=== PATIENT | female | born 1940 | race Caucasian/White ===

== ENCOUNTER 2016-09-18 10:17 | Inpatient (IN) ==
[2016-09-18] MEDS ORDERED: ZOFRAN IV ONE (10:54)
[2016-09-18] MEDS ORDERED: NS 1,000 ML IV ONE (10:54)
[2016-09-18] MEDS ORDERED: MORPHINE IV ONE (11:07)
[2016-09-18 11:29] LABS: INR 1.04; PROTIME 10.9 Seconds (9.2-11.7)
[2016-09-18 11:32] LABS: EOS# 0.07 X1000 (0.0-0.7); EOS% 7.1 % (0.0-10.0); HEMATOCRIT 34.2 % (37.0-47.0); HEMOGLOBIN 11.2 g/dL (12.0-16.0); LYMPH# 0.43 X1000 (1.2-3.4); LYMPH% 43.9 % (20.5-51.1); MANUAL DIFF NEEDED? YES; MCH 28.1 PG (27-31); MCHC 32.7 g/dL (33-37); MCV 85.7 FL (81-99); MONO# 0.47 X1000 (0.11-0.59); MPV 8.5 FL (7.4-10.4); PLT 299 X1000 (130-400); RBC 3.99 XMIL (4.2-5.4)
[2016-09-18 12:06] LABS: ALBUMIN 3.5 g/dL (3.5-5.0); CALCIUM 8.6 mg/dL (8.8-10.2); MAGNESIUM 1.9 mg/dL (1.5-2.7); POTASSIUM 4.6 mmol/L (3.5-5.1); TOTAL BILIRUBIN 0.36 mg/dL (0.20-1.00); TOTAL PROTEIN 6.7 g/dL (6.3-8.3)
--- NOTE | 2016-09-18 12:14 | Diag Imaging Result Doc PS360 ---
EXAM: CHEST-2 VIEWS INDICATION: cough TECHNIQUE: 2 views COMPARISON: 09/03/2016 FINDINGS: The right chest port is in stable position. The lungs are hyperinflated, stable. There is evidence of prior granulomatous disease, stable. The lungs are grossly clear, otherwise. There is no discrete pleural fluid collection or pneumothorax. The cardiomediastinal silhouette and central vasculature are grossly unremarkable. IMPRESSION: Suggestion of COPD. No definite acute pathology by plain radiograph. Electronically signed by Pedro Luis Lomeli 09/18/2016 12:11 PM
[2016-09-18 12:39] LABS: EOS 10 % (1-10); LYMPHS 60 % (21-51); MONO 30 % (1-9)
[2016-09-18] MEDS ORDERED: MAXIPIME 1 GM/NS 1 GM/50 ML IVPB IV ONE (12:50)
--- NOTE | 2016-09-18 12:53 | PROVIDER DOCUMENTATION ---
This chart was entered by Yi Bowen Scribe, acting as scribe for Gisell Kellogg MD. HPI-General Adult - General Chief Complaint: N/V/D Stated Complaint: n/v/d Time Seen by Provider: 09/18/16 10:49 Source: patient, family Allergies/Adverse Reactions: Patient Allergies Allergy/AdvReac Type Severity Reaction Status Date / Time Penicillins Allergy Unknown Verified 03/07/14 11:02 Sulfa (Sulfonamide Allergy Unknown Verified 03/07/14 11:02 Antibiotics) Home Medications: Home Medication List Medication Instructions Recorded Confirmed Last Taken Type Aspirin EC 81 mg PO DAILY 01/21/14 09/18/16 09/18/16 08:00 History Lisinopril 10 mg PO BID 01/21/14 09/18/16 09/18/16 08:00 History Metoprolol Tartrate 25 mg PO BID 01/21/14 09/18/16 09/18/16 08:00 History Pravastatin Sodium 80 mg PO DAILY 01/21/14 09/18/16 09/17/16 20:00 History Temazepam [Restoril] 30 mg PO HS 01/21/14 09/18/16 09/02/16 20:00 History 30 Ondansetron [Zofran] 8 mg PO TID PRN PRN #30 tablet 01/27/14 09/18/16 09/18/16 08:15 Rx Hydrocodone Bit/Acetaminophen 1 each PO Q6H PRN PRN 03/07/14 09/18/16 09/03/16 06:00 History [Hydrocodon-Acetaminophn 10-325] 1 Dicyclomine HCl 20 mg PO 4XDAY PRN PRN 08/31/16 09/18/16 Unknown History - History of Present Illness -Gen Adult Nature of Presenting Problems: PT IS A 75YOF PRESENTING TO THE ED C/O N/V/D. PT STATES SHE BEGAN HAVING DIARRHEA YESTERDAY AND TODAY SHE HAS STARTED WITH N/V BUT DENIES FEVER AT THIS TIME. PT STATES SHE WAS RECENTLY DIAGNOSED WITH STAGE 3 BREAST CA AND HAD HER 1ST CHEMO TREATMENT 3 DAYS AGO. PT HAS A MILD COUGH WELL BUT DENIES FEVER OR OTHER COMPLAINTS AT THIS TIME. Location of Pain/Injury: reports: none Pain Radiation: reports: no radiation Quality of Pain: reports: dull Severity: reports: mild, moderate Onset/Duration: reports: 24 hours ago Timing: reports: still present Context/Activities at Onset: reports: light activity Modifying Factors: improves with: nothing Associated Symptoms: reports: cough, diarrhea, fatigue, malaise, nausea, vomiting, weakness. denies: anxiety, arm pain, back/neck pain, chest pain, fever/chills, genitourinary problems, shortness of breath, trouble walking Similar Symptoms Previously?: No Recently seen or treated by another doctor?: No Review of Systems - Adult - REVIEW OF SYSTEMS - ADULT Constitutional: reports: no symptoms reported Eyes: reports: no symptoms reported Ears, Nose, Mouth & Throat: reports: no symptoms reported Cardiovascular: reports: no symptoms reported Respiratory: reports: see HPI, cough. denies: excessive sputum production, shortness of breath Gastrointestinal: reports: see HPI, abdominal pain, diarrhea, nausea, poor appetite, vomiting. denies: constipation, difficulty swallowing Genitourinary: reports: no symptoms reported Musculoskeletal: reports: no symptoms reported Integumentary: reports: no symptoms reported Neurological: reports: no symptoms reported Psychiatric: reports: no symptoms reported Endocrine: reports: no symptoms reported Hematologic/Lymphatic: reports: no symptoms reported Allergic/Immunologic: reports: no symptoms reported All Other Systems: Reviewed and Negative Past History - Adult - PAST MEDICAL HISTORY-ADULT Review of Records: reports: Old Records Reviewed, Nursing Assessment Review, Medications Reviewed, Social history reviewed & non-contributory. Major Childhood Illnesses: reports: denies history Cardiovascular: reports: HTN, hyperlipidemia, NC Respiratory: reports: denies history Gastrointestinal: reports: GERD, other (PUD) Obstetrical/Gynecological: reports: denies history Genitourinary: reports: denies history Musculoskeletal: reports: arthritis Neurological: reports: denies history Endocrine/Immune: reports: denies history Other Conditions: reports: denies history - PRIOR SURGERIES/PROCEDURES Surgical/Procedure History: reports: cardiac stent, hysterectomy - PRIOR HOSPITALIZATIONS Prior Hospitalizations: reports: none - IMMUNIZATION STATUS Childhood Immunizations: See Nurse Assessment Flu Vaccine: See Nurse Assessment - FAMILY HISTORY Family History: reviewed, not pertinent - SOCIAL HISTORY Smoking: quit greater than 1 year Substance Use: denies Living Situation: family Physical Exam-General - PHYSICAL EXAM-ADULT Initial Vital Signs Reviewed: Yes - CONSTITUTIONAL General Appearance: alert, mild distress, moderate distress. negative: appears well, no apparent distress - EYES Eyes: PERRL/EOMI, pink conjunctivae - HEAD, EARS, NOSE, MOUTH & THROAT HENMT: normocephalic/atraumatic, moist mucous membranes, normal ENT inspection, TMs normal, pharynx normal - NECK Neck: non-tender, full range of motion, supple, normal inspection - RESPIRATORY Respiratory: chest non-tender, lungs clear, normal breath sounds, no pleuratic chest pain, no respiratory distress, no accessory muscle use - CARDIOVASCULAR Cardiovascular: normal peripheral pulses, regular rate, rhythm, no edema, no gallop, no JVD, no murmur - GASTROINTESTINAL (ABDOMEN) Abdominal Exam: normal bowel sounds, soft, no organomegaly, no pulsatile mass, tenderness (VERY MILD). negative: non tender - LYMPHATIC Lymphatic: no adenopathy - MUSCULOSKELETAL Back Exam: normal inspection, no CVA tenderness, no vertebral tenderness Extremity: non-tender, no pedal edema, no calf tenderness, normal capillary refill, pelvis stable. negative: normal range of motion, normal gait, normal inspection - SKIN Integumentary: normal turgor, warm/dry, pallor. negative: normal color - NEUROLOGIC Neurologic: dependency program director II-XII nml as tested, grossly normal, no motor/sensory deficits - PSYCHIATRIC Psych/Mental Status: normal mood/affect, normal thought content, normal thought process, oriented x 3 Progress - PLAN OF CARE/RESULTS Progress/Plan/Lab Results: Vital Signs - 8 hr 09/18/16 10:22 Temperature 99.1 F Pulse Rate 88 Respiratory Rate 18 Blood Pressure 97/60 O2 Sat by Pulse Oximetry 95 Orders Category Date Time Status Cardiac Monitoring DIRECTED Care 09/18/16 10:55 Active Saline Loc NOW Care 09/18/16 10:55 Active CHEST-2 VIEWS [RAD] Stat Exams 09/18/16 10:55 Ordered AMYLASE [CHEM] Stat Lab 09/18/16 10:52 Received CBC WITH ELECTRONIC DIFF [HEME] Stat Lab 09/18/16 10:52 Results CK PROFILE [SP CHEM] Stat Lab 09/18/16 10:52 Received COMPREHENSIVE METABOLIC PANEL [CHEM] Stat Lab 09/18/16 10:52 Received LIPASE [CHEM] Stat Lab 09/18/16 10:52 Received MAGNESIUM [CHEM] Stat Lab 09/18/16 10:52 Received PRO B-NATRIURETIC PEPTIDE Stat Lab 09/18/16 10:52 Received PROTIME WITH INR [COAG] Stat Lab 09/18/16 10:52 Received PTT [COAG] Stat Lab 09/18/16 10:52 Received TROPONIN T Stat Lab 09/18/16 10:52 Received UA NIMS W/REFLEX CULT [URINALYSIS] Stat Lab 09/18/16 10:54 Uncollected 0.9% Sodium Chloride Inj [Ns] 1,000 ml Med 09/18/16 10:54 Active IV 250 mls/hr Morphine Med 09/18/16 11:07 Discontinued 4 mg IV NOW ONE Ondansetron [Zofran] Med 09/18/16 10:54 Discontinued 4 mg IV NOW ONE EKG [EKG] Stat Ther 09/18/16 10:55 Ordered Laboratory Tests 09/18/16 09/18/16 09/18/16 10:52 10:52 10:52 WBC 0.98 L RBC 3.99 L Hgb 11.2 L Hct 34.2 L MCV 85.7 MCH 28.1 MCHC 32.7 L RDW Std Deviation 13.3 Plt Count 299 MPV 8.5 Immature Gran % (Auto) 0.0 Neut % (Auto) 0.0 L Lymph % (Auto) 43.9 [place] % (Auto) 48.0 H Eos % (Auto) 7.1 Baso % (Auto) 1.0 H Immature Gran # (Auto) 0.00 Neut # (Auto) 0.00 L* Lymph # (Auto) 0.43 L [place] # (Auto) 0.47 Eos # (Auto) 0.07 Baso # (Auto) 0.01 Segmented Neutrophils Not Reportable Lymphocytes 60 H Monocytes 30 H Eosinophils 10 Pathologist Review PT INR PTT (Actin FS) Sodium 136 Potassium 4.6 Chloride 97 L Carbon Dioxide 25 Anion Gap 14 BUN 16 Creatinine 1.0 H Estimated GFR/1.73 m2 54 BUN/Creatinine Ratio 16 Glucose 94 Calculated Osmolality 273 Calcium 8.6 L Magnesium 1.9 Total Bilirubin 0.36 AST 12 ALT 9 L Alkaline Phosphatase 110 H Creatine Kinase 62 Troponin T Szy-A-Qbfqtuuvonv Pept 261 Total Protein 6.7 Albumin 3.5 Globulin 3.2 Albumin/Globulin Ratio 1.1 Amylase 43 Lipase 23 09/18/16 09/18/16 10:52 10:52 WBC RBC Hgb Hct MCV MCH MCHC RDW Std Deviation Plt Count MPV Immature Gran % (Auto) Neut % (Auto) Lymph % (Auto) [place] % (Auto) Eos % (Auto) Baso % (Auto) Immature Gran # (Auto) Neut # (Auto) Lymph # (Auto) [place] # (Auto) Eos # (Auto) Baso # (Auto) Segmented Neutrophils Lymphocytes Monocytes Eosinophils Pathologist Review PT 10.9 INR 1.04 PTT (Actin FS) 32.0 Sodium Potassium Chloride Carbon Dioxide Anion Gap BUN Creatinine Estimated GFR/1.73 m2 BUN/Creatinine Ratio Glucose Calculated Osmolality Calcium Magnesium Total Bilirubin AST ALT Alkaline Phosphatase Creatine Kinase Troponin T < 0.010 Uie-B-Gwodibjfpvf Pept Total Protein Albumin Globulin Albumin/Globulin Ratio Amylase Lipase Result Diagrams: 09/18/16 10:52 09/18/16 10:52 - XRAY 1 XRAY: Bilateral XRAY Study: Chest (SUGGESTION OF COPD, NO DEFINITE ACUTE PATHOLOGY BY PLAIN RADIOGRAGH - DUGGAN) - CONSULTS/PCP/HOSPITALIST Notification #1 *Consult/PCP/Hospitalist*: Jeremias/Dr. Fried Time Discussed: 12:52 Consult Disposition: Admit Departure - Departure Date of Disposition Decision: 09/18/16 Time of Disposition Decision: 12:52 DIAGNOSIS: Neutropenia Qualifiers: Neutropenia type: unspecified Qualified Code(s): D70.9 - Neutropenia, unspecified Nausea & vomiting Qualifiers: Vomiting type: unspecified Vomiting Intractability: non-intractable Qualified Code(s): R11.2 - Nausea with vomiting, unspecified Disposition: ADMITTED INPATIENT 09 Certified Medical Emergency: Emergent Condition: Stable Referrals and Follow-Ups: Nathan Lara MD [Primary Care Provider] - - Critical Care Note This patient required my direct & personal management of CC.: No This chart was documented by the indicated scribe, (Yi Bowen Scribe) and accurately reflects the services I performed and decisions made by me, Gisell Kellogg MD, as attested by the provider's signature.
[2016-09-18] MEDS ORDERED: VANCOMYCIN IV PER PHARMACY MISC SCH (13:15)
[2016-09-18 13:58] LABS: URINE CULTURE NEEDED? NO; URINE SOURCE CATH
[2016-09-18 14:00] LABS: BILIRUBIN URINE SMALL (NEGATIVE); BLOOD URINE NEGATIVE (NEGATIVE); COLOR ORANGE; GLUCOSE URINE NEGATIVE (NEGATIVE); LEUKOCYTES URINE NEGATIVE (NEGATIVE); NITRITE URINE NEGATIVE (NEGATIVE); PH URINE 5.5; PROTEIN URINE 70 mg/dL (NEGATIVE); TURBIDITY URINE HAZY (CLEAR); URINE MICRO REVIEW NEEDED? YES; UROBILINOGEN URINE NORMAL (NORMAL)
[2016-09-18 14:06] LABS: UR EPITHELIAL CELLS <10 /HPF (<10); URINE BACTERIA NEGATIVE /HPF; URINE RBC <10 /HPF (<10); URINE WBC <10 /HPF (<10)
[2016-09-18 14:12] LABS: URINE CASTS GRANULAR PRESENT
[2016-09-18] MEDS ORDERED: VANCOMYCIN 2 GM in NS 500 ML IV ONE (15:00)
--- NOTE | 2016-09-18 15:07 | Diag Imaging Result Doc PS360 ---
EXAM: HEAD W/O CONTRAST INDICATION: AMS COMPARISON: None. FINDINGS: There is patchy low attenuation in the periventricular and subcortical white matter suggesting at least moderate microangiopathy. There are a few chronic lacunar infarcts involving the deep law matter bilaterally. There is no definite acute infarct given the limited sensitivity of CT versus MRI. There is no discrete intracranial mass, mass effect, or intracranial hemorrhage. The surrounding soft tissues and bony structures are essentially unremarkable. IMPRESSION: Chronic appearing changes as described. No definite acute intracranial pathology. Electronically signed by Pedro Luis Lomeli 09/18/2016 3:04 PM
--- NOTE | 2016-09-18 15:29 | HISTORY AND PHYSICAL ---
PRIMARY CARE PHYSICIAN: Nathan Lara MD. ONCOLOGIST: Earnestine Herman MD. CHIEF COMPLAINT: Altered mental status, nausea, vomiting, and diarrhea. HISTORY OF PRESENT ILLNESS: Ms. Terrazas is an unfortunate 75-year-old female with a history of breast cancer with ductal carcinoma, as well, who is followed by Dr. Earnestine Herman. She had been receiving chemotherapy. Her last dose was, I believe, Tuesday or Tuesday of last week. She also has a history of an abdominal aortic aneurysm, hypertension, and CAD. She comes in today, as her family reports that she has been altered over the past few days. She has also been weak with multiple bouts of diarrhea, nausea and vomiting. Ms. Terrazas herself has altered mental status at this time and is unable to give any type of real history, and all pertinent information is from her family at the bedside. She has recently been treated with antibiotics for a UTI and, since that time, her family states that she has really gone downhill with confusion, nausea, vomiting, and ultimately diarrhea. They do not report that she has had any fevers, per se, but she has had some chills. They brought her into the ER today and she was noted to have an ANC count of zero. Her chemistry is largely unremarkable and she has a low-grade fever of 99.1, but, as of now, there is no clear source of infection. We have sent stool studies and blood cultures as well as ordered urine cultures and sputum cultures, but we are going to treat her as neutropenic fever. She is now going to be admitted for further treatment and evaluation. PAST MEDICAL HISTORY: 1. Breast cancer with lymph node involvement on the right, followed by Dr. Earnestine Herman, scheduled to have a mastectomy in the coming weeks. 2. CAD. 3. Hypertension. 4. Hyperlipidemia. 5. History of MO. 6. Abdominal aortic aneurysm. SURGICAL HISTORY: She has had FNA breast biopsy, cataract surgery bilaterally, and hysterectomy. SOCIAL HISTORY: She has a remote history of nicotine dependence. She does not use tobacco, alcohol, or drugs currently. FAMILY HISTORY: Very significant for breast cancer. REVIEW OF SYSTEMS: Unable to obtain. ALLERGIES: Penicillin and sulfa. HOME MEDICATIONS: Aspirin 81 mg daily. Dicyclomine 20 mg 4 times a day. [place] as directed. Lisinopril 10 mg b.i.d. Metoprolol 25 mg b.i.d. Zofran 8 mg t.i.d. as needed. Pravastatin 80 mg daily. Restoril 30 mg p.o. at bedtime. PHYSICAL EXAMINATION: VITAL SIGNS: Blood pressure is 123/61, heart rate 91, respiratory rate 16, O2 saturation 100% on 2L, and temperature 99.1 degrees. GENERAL: This is an elderly-appearing 75-year-old female, lying in the hospital bed in no acute distress. NEUROLOGIC: The patient is awake, slightly lethargic, but she does not answer questions appropriately. She does follow commands with generalized weakness, but no focal deficits noted. HEENT: Head is atraumatic and normocephalic. Her pupils are equal, round, and reactive to light. Oral mucosa is dry. Trachea is midline. NECK: No JVD. CHEST: Occasional sounds scattered rhonchi bilaterally. CARDIOVASCULAR: Regular rate and rhythm. S1 and S2 noted. No murmurs. GASTROINTESTINAL: Soft and nondistended, but there is some slight tenderness to palpation in the right and left upper quadrants. EXTREMITIES: Trace edema, but no clubbing or cyanosis. DIAGNOSTIC DATA: Chest x-ray does not show anything acute on plain film. WBC 0.98, hemoglobin 11.2, hematocrit 34.2, platelet count 299,000. Neutrophil count zero, ANC zero. PT 10.9 and INR 1.04. Sodium 136, potassium 4.6, chloride 97, CO2 of 25, anion gap 14, BUN 16, creatinine 1, glucose 94, calcium 8.6, magnesium 1.9. AST 12, ALT 9, alkaline phosphatase 110. Troponin negative. Lipase is 23, lactate 0.6. UA shows small urobilinogen, trace ketones, and 70 protein. ASSESSMENT AND PLAN: 1. Profound neutropenia with low-grade fever: We are going to treat her as neutropenic fever. Will obtain suarez cultures, start cefepime and vancomycin, and scan her chest, abdomen, and pelvis to search for any infections. Heme-Onc has also been consulted. 2. Toxic metabolic encephalopathy: Source is unclear; however, differential diagnoses are broad. We will check a head CT to rule out for any acute intracranial pathology and lightly hydrate. We will also start antibiotics. We will continue neuro checks and monitor vitals and telemetry closely. 3. Normocytic anemia: We will check iron studies and treat accordingly. 4. Diarrhea: In light of recent antibiotic use, Clostridium difficile is certainly a possibility. Stool studies have been sent and are pending. 5. Known breast cancer: Heme-Onc has been consulted. Defer any management to them. 6. Coronary artery disease: Patient denies any chest pain, but will monitor telemetry and trend enzymes. 7. Deep vein thrombosis prophylaxis will be provided with SCDs/TEDs. Further recommendations to follow. Dictated by TESSA Roberts for Ashlee Danielson MD cc: TESSA Roberts MD Stephen A. Branning, MD
--- NOTE | 2016-09-18 15:36 | Diag Imaging Result Doc PS360 ---
EXAM: THORAX/ABDOMEN/PELVIS INDICATION: Severe Neutropenia/Diarrhea/Abd Pain COMPARISON: CT abdomen without contrast dated 05/07/2016. No prior chest CT is available for comparison. FINDINGS: CHEST: There is pulmonary emphysema. There are a few calcified granulomata in the left lower lobe. There are a few other tiny noncalcified nodules bilaterally. For reference, the largest measured nodule is only 5.2 mm. It is located at the superior aspect of the right lower lobe abutting the pleura medially on image 39 of series 4. These certainly may represent noncalcified granulomata. Follow-up is recommended based on Fleischner Society criteria. There is trace scarring versus atelectasis in the lingula. There are no pleural fluid collections and there is no pneumothorax. There are nonspecific borderline to mildly prominent mediastinal lymph nodes. The largest is in the aorticopulmonary window measuring approximately 2.3 x 1.2 cm axially. There is patchy aortic and coronary artery calcification. There is nonspecific right axillary lymphadenopathy. For reference, there is a lymph node on image 35 of series 2 on the right measuring up to 1.9 x 1.6 cm axially. The bony structures of the thorax are grossly intact. ABDOMEN/PELVIS: There are a few small renal hypodensities bilaterally most compatible with subcentimeter cysts. However, they're too small to accurately characterize. The kidneys are grossly unremarkable, otherwise. There is an infrarenal abdominal aortic aneurysm that is approximately stable measuring up to 4.0 x 3.8 cm axially. It exhibits mural thrombus and calcification. There is sigmoid colonic diverticulosis and there is a segment of the mid sigmoid colon exhibiting surrounding inflammatory changes and wall thickening. This is consistent with acute diverticulitis. There is no evidence of abscess or free abdominal gas to indicate perforation. There has been a previous hysterectomy. The remainder of the solid viscera of the abdomen and pelvis and the remainder of the GI tract are essentially unremarkable. There are degenerative changes involving the lower lumbar spine. The bony structures of the abdomen and pelvis are grossly intact, otherwise. IMPRESSION: 1.Pulmonary emphysema. 2.Several tiny subcentimeter noncalcified nodules in both lungs that may represent noncalcified granulomata. Consider follow-up based on Fleischner Society criteria. 3.Nonspecific right axillary lymphadenopathy. 4.Shotty borderline to mildly prominent mediastinal lymph nodes. 5.Acute sigmoid colonic diverticulitis. No evidence of perforation. 6.Stable abdominal aortic aneurysm. 7.Other incidental/nonacute findings detailed above. Electronically signed by Pedro Luis Lomeli 09/18/2016 3:34 PM
[2016-09-18] MEDS ORDERED: TYLENOL PO PRN (16:54)
[2016-09-18] MEDS ORDERED: CALMOSEPTINE OINTMENT TOP PRN (17:46)
[2016-09-18] MEDS: NS 1,000 ML IV SCH (18:29)
[2016-09-18] MEDS: FLAGYL 500 MG/NS 500 MG/100 ML IVPB IV SCH ×2 (18:29→23:50)
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
[2016-09-18] MEDS: NORCO-10 PO SCH (21:09)
[2016-09-18] MEDS: RESTORIL PO SCH (21:09)
[2016-09-19] MEDS: MAXIPIME 1 GM/NS 1 GM/50 ML IVPB IV SCH ×2 (01:53→14:01)
[2016-09-19] MEDS: NORCO-10 PO SCH ×3 (01:53→16:26)
[2016-09-19] MEDS: FLAGYL 500 MG/NS 500 MG/100 ML IVPB IV SCH ×2 (05:23→11:40)
[2016-09-19] MEDS: NS 1,000 ML IV SCH ×2 (05:23→16:56)
[2016-09-19] MEDS: SODIUM CHLORIDE 0.9% INJ SCH (06:16)
[2016-09-19] MEDS: PROTONIX IV SCH (06:16)
[2016-09-19 06:59] LABS: EOS# 0.05 X1000 (0.0-0.7); EOS% 4.9 % (0.0-10.0); HEMATOCRIT 30.3 % (37.0-47.0); HEMOGLOBIN 9.8 g/dL (12.0-16.0); LYMPH# 0.43 X1000 (1.2-3.4); LYMPH% 41.7 % (20.5-51.1); MANUAL DIFF NEEDED? YES; MCH 27.7 PG (27-31); MCHC 32.3 g/dL (33-37); MCV 85.6 FL (81-99); MONO# 0.54 X1000 (0.11-0.59); MONO% 52.4 % (1.7-9.3); MPV 8.5 FL (7.4-10.4); PLT 280 X1000 (130-400); RBC 3.54 XMIL (4.2-5.4)
[2016-09-19 07:14] LABS: AGAP 12; BUN 12 mg/dL (8-22); CHLORIDE 101 mmol/L (98-107); COSMO 267; HDL 18 mg/dL (45-65); IRON SATURATION 7 %; LDL 81 mg/dL; SODIUM 134 mmol/L (136-145); TCO2 21 mmol/L (25-35); TIBC 189 ug/dL; TOTAL IRON 13 ug/dL (49-151); TRIGLYCERIDES 119 mg/dL (35-135); UNBOUND IRON 176 ug/dL (112-346); VLDL 24 mg/dL
[2016-09-19 07:28] LABS: EOS 4 % (1-10); LYMPHS 46 % (21-51); MONO 50 % (1-9)
[2016-09-19] MEDS ORDERED: IMODIUM PO ONE (13:50)
[2016-09-19] MEDS: DILAUDID IV PRN ×2 (13:58→20:49)
[2016-09-19] MEDS ORDERED: VANCOMYCIN 1.6 GM in NS 250 ML IV SCH (15:00)
[2016-09-19] MEDS ORDERED: MERREM 1 GM in NS 50 ML IV SCH (15:30)
--- NOTE | 2016-09-19 16:53 | PROGRESS NOTE ---
DATE: 09/19/2016 SUBJECTIVE: The patient continues to have several bouts of loose stool and she complains of generalized pain. OBJECTIVE: Vital Signs: Temperature 99 degrees, blood pressure 139/58, heart rate 115, respirations 20, O2 saturation is 94% on room air. General: This is an elderly female, lying in bed, in no acute distress. Head: Normocephalic, atraumatic. Heart: S1, S2 normal. Tachycardic. Lungs: Clear to auscultation bilaterally. Abdomen: Positive bowel sounds. Soft, nontender, nondistended. Extremities: No edema. No cyanosis. Neurologic: The patient is awake and alert. LABS: White blood cell count 1, hemoglobin 9.8, hematocrit 30, platelets 280,000. Sodium 134, potassium 4, chloride 101, CO2 21, BUN 12, creatinine 0.7, glucose 82, calcium 8. Iron 13. ASSESSMENT AND PLAN: 1. Neutropenic fever. Continue on broad-spectrum antibiotics. Will follow up the culture results. 2. Acute diverticulitis. Continue on IV antibiotic therapy. 3. Breast cancer. Oncology has been consulted. 4. Anemia of chronic disease. We will continue to monitor the patient's hemoglobin and hematocrit closely. 5. Deep vein thrombosis prophylaxis. Continue with SCDs. cc: Ashlee Danielson MD
[2016-09-19] MEDS: BENADRYL PO PRN (16:58)
[2016-09-19] MEDS: CYANOCOBALAMIN IM SCH (16:59)
[2016-09-19] MEDS: MERREM 1 GM in NS 50 ML IV SCH ×2 (16:59→23:08)
[2016-09-19] MEDS: HYDROCORTISONE 1% CREAM TOP PRN (17:01)
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
--- NOTE | 2016-09-19 20:44 | PROGRESS NOTE ---
DATE: 09/19/2016 SUBJECTIVE: The patient states that she continues to feel poorly. She is having multiple bowel movements per day despite Imodium. Her stool studies are negative for C. difficile antigen, but the toxin was not performed. She really describes 6-10 bowel movements that are watery and large volume. She was evaluated by Dr. Duc Otoole who changed her antibiotics from cefepime, vancomycin and Flagyl to meropenem. This occurred 1 hour prior to our evaluation today. On exam, she is comfortable. Her blood pressure is 133/74, pulse of 109, respiration 20 , temperature of 98.6 degrees. Our exam was limited as the patient had the urge to defecate immediately before our exam. She is able to press on her and states that she has mild tenderness, but no severe pain. OBJECTIVE DATA: Reveals a hemoglobin of 9.8 with hematocrit of 30.3, and a white count of 1.03. She has 280,000 platelets. Sodium is 134, potassium 4, chloride 101, CO2 21, BUN 12, creatinine 0.6 with a glucose of 82. Her calcium is 8 with an iron of 13, ammonia of 19, vitamin B12 188 and folic acid of 11.5. IMPRESSION: 1. Neutropenia. 2. Sigmoid diverticulitis. 3. Metabolic encephalopathy. 4. Vitamin B12 deficiency. 5. Breast cancer. RECOMMENDATION: 1. Continue meropenem for treatment of her sigmoid diverticulitis. Because her antibiotics were adjusted 1 hour prior to our evaluation, I will make no new recommendations today. 2. Continue Protonix. 3. Consider Imodium as needed. Please monitor its use carefully as she is at risk for toxic megacolon. I would only use sparingly given her copious amounts of diarrhea. 4. We may consider cholestyramine if the diarrhea persists once we have carefully ruled out Clostridium difficile colitis. 5. She will need a complete colonoscopy once the acute episode has resolved. 6. Additional recommendations to follow based on her clinical course. cc: MD Earnestine Monterroso MD Leroy F. Harris, MD Stephen A. Branning, MD MTDD
[2016-09-19] MEDS: RESTORIL PO SCH (20:49)
[2016-09-19] MEDS: CULTURELLE PO SCH (23:08)
[2016-09-20] MEDS: NORCO-10 PO SCH ×5 (01:31→23:29)
[2016-09-20] MEDS: BENADRYL PO PRN ×2 (02:34→14:43)
[2016-09-20] MEDS: DILAUDID IV PRN ×5 (02:34→23:30)
[2016-09-20] MEDS ORDERED: CARDIZEM ONE (06:36)
[2016-09-20] MEDS ORDERED: CARDIZEM IV ONE ×2 (07:00→07:45)
--- NOTE | 2016-09-20 07:33 | EKG Report ---
Test Performed on : 09/20/2016 04:37:26 AM Test Reason : Re-Ordered Blood Pressure : / mmHG Vent. Rate : 152 BPM Atrial Rate : 136 BPM P-R Int : 000 ms QRS Dur : 096 ms QT Int : 300 ms P-R-T Axes : 000 032 063 degrees QTc Int : 477 ms Atrial fibrillation. with rapid ventricular response. Nonspecific ST and T wave abnormality Abnormal ECG When compared with ECG of 20-SEP-2016 04:36, (Unconfirmed) No significant change was found Confirmed by Allen SPICER, Sal Roberson ([id number]) on 09/21/2016 6:20:27 PM
[2016-09-20] MEDS: PROTONIX IV SCH (07:43)
[2016-09-20 08:04] LABS: BASO% 1.8 % (0.0-0.8); EOS# 0.07 X1000 (0.0-0.7); EOS% 3.1 % (0.0-10.0); HEMATOCRIT 31.3 % (37.0-47.0); HEMOGLOBIN 10.2 g/dL (12.0-16.0); IMM GRAN# 0.03 X1000 (0.0-0.04); IMM GRAN% 1.3 % (0.0-0.5); LYMPH# 0.62 X1000 (1.2-3.4); LYMPH% 27.8 % (20.5-51.1); MANUAL DIFF NEEDED? YES; MCH 27.7 PG (27-31); MCHC 32.6 g/dL (33-37); MCV 85.1 FL (81-99); MONO# 0.91 X1000 (0.11-0.59); MONO% 40.8 % (1.7-9.3); MPV 8.4 FL (7.4-10.4); NEUT% 25.2 % (42.2-75.2); PLT 346 X1000 (130-400); RBC 3.68 XMIL (4.2-5.4)
[2016-09-20 08:18] LABS: AGAP 13; BUN 6 mg/dL (8-22); CHLORIDE 101 mmol/L (98-107); COSMO 271; POTASSIUM 3.3 mmol/L (3.5-5.1); SODIUM 137 mmol/L (136-145); TCO2 23 mmol/L (25-35)
[2016-09-20] MEDS: NS 1,000 ML IV SCH ×3 (08:25→23:20)
[2016-09-20] MEDS: CARDIZEM 100 MG/NS 100 MG/100 ML IVPB IV SCH (08:26)
[2016-09-20] MEDS: CYANOCOBALAMIN IM SCH (08:29)
[2016-09-20] MEDS: CULTURELLE PO SCH ×2 (08:29→20:10)
[2016-09-20 08:50] LABS: BANDS 8 % (0-1); EOS 2 % (1-10); LYMPHS 48 % (21-51); MONO 22 % (1-9)
[2016-09-20 08:51] LABS: HYPOCHROM 2+
[2016-09-20] MEDS: MERREM 1 GM in NS 50 ML IV SCH ×3 (09:04→23:59)
[2016-09-20] MEDS ORDERED: POTASSIUM CHLORIDE 60 MEQ in NS 500 ML IV ONE (09:30)
--- NOTE | 2016-09-20 09:56 | PROGRESS NOTE ---
DATE: 09/20/2016 PRESENT ILLNESS: The patient has a resolving neutropenic fever. She also, on CAT scan, was found to have evidence of sigmoid diverticulitis. MEDICATIONS: The patient is on meropenem in a dose of 1 g IV every 8 hours. PHYSICAL EXAMINATION: Vital Signs: Temperature is 98.4 degrees, pulse 137, respirations 28, blood pressure 132/65. General: This is a somewhat ill-appearing, elderly female. She is in no acute distress. Lungs: Clear to auscultation. Cardiovascular: Regular heart rate. Abdomen: Soft and nontender. Neurologic: Patient is alert. She can move her extremities. There is no tremor. LAB AND X-RAY: The patient's CBC today shows a white count of 2230, hemoglobin 10.2, and platelet count of 346,000. Patient's absolute neutrophil count is 560. Stool for Clostridium difficile toxin is negative. Blood cultures are pending. ASSESSMENT AND PLAN: Patient has resolving neutropenic fever. She does have sigmoid diverticulitis as seen on a CAT scan. My plan would be to continue meropenem. The patient's comorbidities include breast cancer for which the patient received chemotherapy and caused her to be neutropenic. The patient has metastatic breast cancer which caused her to become neutropenic. The plan is to continue meropenem because the patient also, on CAT scan, has sigmoid diverticulitis. The patient's comorbidity is that she is elderly. She also has metastatic breast cancer for which she needs chemotherapy. cc: Duc Otoole MD
[2016-09-20] MEDS: LOPRESSOR PO SCH ×2 (11:50→20:10)
[2016-09-20] MEDS: ASPIRIN PO SCH (11:51)
--- NOTE | 2016-09-20 12:17 | CONSULTATION ---
DATE OF CONSULTATION: 09/20/2016 HISTORY OF PRESENT ILLNESS: Cardiology was consulted for new onset severe atrial fibrillation. The patient was admitted on 09/18 with nausea, vomiting, diarrhea with multiple bouts of nausea, vomiting, and diarrhea. The patient also had some altered mental status and recent UTI and has been on antibiotics and she has been going downhill. The patient was brought in and admitted. She has a neutropenia and acute sigmoid colonic diverticulitis. GI has been consulted. From a cardiac standpoint, she does not complain of chest pain. She has palpitations and has been started on a Cardizem drip. There is no recent episode of syncope recently, or in the past. She has known coronary disease and is followed by Dr. Jovel in [place]. REVIEW OF SYSTEMS: GI: As above. Genitourinary: As above. Cardiovascular: As above. Respiratory: There is no cough or hemoptysis. PAST MEDICAL HISTORY: 1. Breast cancer with lymph node involvement followed by Dr. Herman, has mastectomy planned, also has neutropenia, diarrhea and abdominal discomfort. 2. Hypertension. 3. Hyperlipidemia. 4. Abdominal aorta aneurysm. 5. History of myocardial infarction. 6. Left heart catheterization 11/14/2012. Ejection fraction at that time 45-50%. LAD 30-50%. Diagnosed occluded OM1 ostial 60-70%. OM2 fills via collaterals. RCA stent patent. Medical management recommended at that time. Myocardial infarction 04/04/2012 and had a RCA a drug- eluting stent. 7. History of diastolic heart failure. 8. Mitral regurgitation. 9. Tobacco abuse. HOME MEDICATIONS: Included aspirin 81 mg still, lisinopril 10, metoprolol 25 b.i.d., gabapentin, pravastatin 80, [place]. PHYSICAL EXAMINATION: Vital Signs: Blood pressure 132/65. Cardiovascular: Jugular venous pressure was normal. First and second heart sounds heard. There is no S3 gallop. Respiratory: Normal air entry. There is no crepitations or rhonchi. Abdomen: Mild tenderness. Central Nervous System: Alert, was moving all 4 extremities. Extremities: Revealed mild pedal edema. LABORATORY EXAMINATION: Sodium 137, potassium 3.3, BUN 6, creatinine 0.7. EKG revealed atrial fibrillation with rapid ventricular. WBC when she was admitted 0.98 with a hemoglobin 11.2, hematocrit 34, platelet count of 299,000. Neutrophils were 0. Head CT was unremarkable. Chest/abdominal CT revealed acute sigmoid colonic diverticulitis with stable infrarenal abdominal aorta aneurysm measuring 3.8 cm with mural thrombus and calcification. ASSESSMENT AND PLAN: 1. For atrial fibrillation she is on a Cardizem drip. We will switch her out to p.o. Cardizem 60 q.8h in addition to increase her metoprolol to 50 mg twice daily. 2. She is on aspirin. As far as anticoagulation therapy is concerned, would recommend the Eliquis 5 mg twice daily for stroke prophylaxis given elevated [id number] score; however, she has acute sigmoid diverticulitis and is being treated with antibiotics. As this in the acute phase just in the event that further intervention from a GI standpoint may be required, I will deferred starting anticoagulation therapy to when she is a little more stable and at the time of discharge. We will get an echocardiogram to assess cardiac and valvular function. Thank you for the consult. We will follow hospital course. cc: Rodolfo Dahl MD
--- NOTE | 2016-09-20 13:50 | PROGRESS NOTE ---
DATE: 09/20/2016 SUBJECTIVE: Patient states she is feeling better. She is asking for something to eat. No reported nausea or vomiting so far today. Patient reports hunger pain but really denies any severe abdominal pain. She is being treated for diverticulitis. She is also being evaluated for new onset atrial fibrillation. She has been seen by Cardiology. OBJECTIVE: Lungs: Sounds essentially clear. Cardiovascular: New onset of atrial fibrillation. Abdomen: Soft, only mild tenderness. Vital Signs: Temperature 98.4 degrees, pulse 137, respirations 28 blood pressure 132/65. DIAGNOSTIC RESULTS: Laboratory. Hematology. White count 2.23, hemoglobin 10.2, hematocrit 31.3, MCV 85.1, platelet 346,000. Chemistry. Sodium 137, potassium 3.3, chloride 101, CO2 of 23, BUN 6, creatinine 0.7, glucose 87. ASSESSMENT AND PLAN: 1. Diverticulitis. 2. New onset atrial fibrillation following with Cardiology. 3. Neutropenia with history of breast cancer followed by Dr. Herman. PLAN: Continue supportive care. Continue symptomatic treatment. Continue antibiotics. The patient is asking for regular food. Will advance if okay with Dr. Gibson. Dr Gibson to return tomorrow. Dictated by TESSA Steen for Isrrael Lei MD cc: TESSA Hairston MD [facility]
[2016-09-20] MEDS: CARDIZEM PO SCH ×2 (13:52→17:16)
[2016-09-20] MEDS: QUESTRAN LIGHT PO SCH ×2 (13:56→20:09)
[2016-09-20] MEDS: GRANIX SUBQ SCH (13:56)
--- NOTE | 2016-09-20 14:01 | PROGRESS NOTE ---
DATE: 09/20/2016 SUBJECTIVE: The patient continues to have diarrhea. She went into atrial fibrillation with RVR this morning and was transferred to CICU. OBJECTIVE: Vital Signs: Temperature 98.4 degrees, blood pressure 132/65, heart rate 137, respirations 28, O2 saturations 95% on room air. General: This is an elderly female lying in bed in no acute distress. Head: Normocephalic, atraumatic. Heart: S1, S2. Normal. Irregularly irregular rhythm. Lungs: Clear to auscultation bilaterally. No crackles. No rales. Abdomen: Positive bowel sounds. Soft, nontender, nondistended. Extremities: No edema. No cyanosis. Neurologic: The patient is awake and alert. LABS: White blood cell count 2.2, hemoglobin 10, hematocrit 31, platelets 346,000. Sodium 137, potassium 3.3, chloride 101, CO2 23, BUN 6, creatinine 0.7, glucose 87. ASSESSMENT AND PLAN: 1. Atrial fibrillation. Cardiology has been consulted and they started the patient on Lopressor. Will continue to monitor the patient on telemetry in CICU. 2. Neutropenic fever. The patient's ANC is 0.56. Will continue on neutropenic precautions plus antibiotic therapy. 3. Acute diverticulitis. Continue on Merrem as directed by Dr. Otoole. 4. Diarrhea. The patient's stool was noted to be negative for Clostridium difficile. Will start on Questran. 5. Breast cancer. Management as per Dr. Herman. 6. Hypokalemia. Will replace the patient's potassium. 7. Vitamin B12 deficiency. The patient is on vitamin B12 replacement. 8. Deep venous thrombosis prophylaxis. Continue with SCDs. cc: Ashlee Danielson MD
[2016-09-20] MEDS: RESTORIL PO SCH (20:09)
[2016-09-21] MEDS: CARDIZEM PO SCH ×2 (00:39→08:26)
[2016-09-21] MEDS: DUONEB (A & A) INH PRN ×3 (01:32→18:07)
[2016-09-21] MEDS: CARDIZEM 100 MG/NS 100 MG/100 ML IVPB IV SCH ×2 (02:33→23:23)
[2016-09-21] MEDS: NORCO-10 PO SCH ×4 (03:40→20:16)
[2016-09-21] MEDS: DILAUDID IV PRN ×4 (04:23→18:31)
[2016-09-21 06:06] LABS: AGAP 13; BUN 4 mg/dL (8-22); CALCIUM 8.1 mg/dL (8.8-10.2); CHLORIDE 103 mmol/L (98-107); COSMO 276; POTASSIUM 3.8 mmol/L (3.5-5.1); SODIUM 140 mmol/L (136-145); TCO2 24 mmol/L (25-35)
[2016-09-21] MEDS: PROTONIX IV SCH (06:07)
--- NOTE | 2016-09-21 06:49 | PROGRESS NOTE ---
DATE: 09/21/2016 PRESENT ILLNESS: The patient has had resolution of her neutropenic fever. She was found on CAT scan to have a sigmoid diverticulitis. MEDICATIONS: The patient is receiving meropenem in a dose of 1 g IV every 8 hours for the past 2 days. PHYSICAL EXAMINATION: Vital Signs: Temperature is 97.8 degrees, pulse 99, respirations 18, blood pressure 122/77. General: This is an ill-appearing, elderly female. She is in no acute distress. Lungs: Clear to auscultation. Cardiovascular: Irregular heart rate. Chest: The patient has a right-sided Port-A-Cath in place. The site is not swollen, purulent, or erythematous. LAB AND X-RAY: There is no new x-ray. The creatinine is 0.7. GFR is greater than 60. I have just ordered a CBC, the results of which are pending. I have requested that the nurse call me with the results also. ASSESSMENT AND PLAN: The patient has resolved neutropenic fever. She does have sigmoid diverticulitis. I plan to continue with meropenem for a while. COMORBIDITIES: Include the following: Elderly, metastatic breast cancer, and chemotherapy. cc: Duc Otoole MD
[2016-09-21 06:52] LABS: BASO% 0.8 % (0.0-0.8); EOS# 0.08 X1000 (0.0-0.7); EOS% 0.6 % (0.0-10.0); HEMATOCRIT 33.1 % (37.0-47.0); HEMOGLOBIN 10.6 g/dL (12.0-16.0); IMM GRAN# 0.52 X1000 (0.0-0.04); LYMPH# 1.35 X1000 (1.2-3.4); LYMPH% 10.3 % (20.5-51.1); MANUAL DIFF NEEDED? NO; MCH 27.4 PG (27-31); MCV 85.5 FL (81-99); MONO# 1.98 X1000 (0.11-0.59); MONO% 15.1 % (1.7-9.3); MPV 8.7 FL (7.4-10.4); NEUT% 69.2 % (42.2-75.2); PLT 366 X1000 (130-400); RBC 3.87 XMIL (4.2-5.4)
--- NOTE | 2016-09-21 06:53 | EKG Report ---
Test Performed on : 09/21/2016 06:31:32 AM Test Reason : afib Blood Pressure : / mmHG Vent. Rate : 116 BPM Atrial Rate : 070 BPM P-R Int : 000 ms QRS Dur : 094 ms QT Int : 342 ms P-R-T Axes : 000 018 044 degrees QTc Int : 475 ms Atrial fibrillation. with rapid ventricular response. Nonspecific ST abnormality Abnormal ECG When compared with ECG of 20-SEP-2016 04:37, (Unconfirmed) No significant change was found Confirmed by Allen SPICER, Sal Roberson ([id number]) on 09/21/2016 6:23:03 PM
--- NOTE | 2016-09-21 08:05 | Diag Imaging Result Doc PS360 ---
EXAM: KUB ABDOMEN HISTORY: bowel obstruction TECHNIQUE: Two views COMPARISON: None. FINDINGS: No bowel obstruction. No organomegaly. No foreign body. IMPRESSION: The bowel loops are not dilated. Electronically signed by Gamal Chaudhary 09/21/2016 8:03 AM
[2016-09-21] MEDS: MERREM 1 GM in NS 50 ML IV SCH ×3 (08:24→23:28)
[2016-09-21] MEDS: ASPIRIN PO SCH (08:26)
[2016-09-21] MEDS: CULTURELLE PO SCH ×2 (08:26→20:17)
[2016-09-21] MEDS: CYANOCOBALAMIN IM SCH (08:27)
[2016-09-21] MEDS: QUESTRAN LIGHT PO SCH ×2 (08:27→20:16)
[2016-09-21] MEDS: LOPRESSOR PO SCH ×2 (08:27→20:17)
[2016-09-21] MEDS: GRANIX SUBQ SCH (09:54)
--- NOTE | 2016-09-21 10:30 | ECHO REPORT ---
ORDER DATE: 09/20/2016 MEASUREMENTS: Left ventricular end-diastolic diameter 5, end-systolic diameter 3.8, septal thickness 1.1, posterior wall thickness 1.1, left atrium 3.7, aortic root 3.4. SUMMARY: 1. Fair quality study. 2. Trileaflet aortic valve is sclerotic but opens adequately on 2-dimensional images. Peak gradient across the valve is 15 mmHg. There is mild aortic regurgitation. Mitral, tricuspid, and pulmonic valves are without structural abnormality with mild mitral regurgitation, very mild tricuspid regurgitation, and trace pulmonic insufficiency. Estimated systolic PA pressure by Doppler is 65 mmHg. The aortic root is normal in size. 3. Normal left ventricular chamber size with borderline concentric left hypertrophy is demonstrated. Estimated left ejection fraction is 50-55%. No regional wall motion abnormalities are evident. Left atrium is upper normal in size. Right atrium and right ventricle are normal in size with normal right ventricular systolic function. 4. No pericardial effusion. 5. Appearance of inferior vena cava suggests normal central venous pressure. CONCLUSIONS: 1. Aortic valve sclerosis without stenosis, with mild aortic regurgitation. 2. Mild mitral regurgitation. 3. Very mild tricuspid regurgitation with moderate to severe pulmonary hypertension by Doppler. 4. Borderline concentric left ventricular hypertrophy with estimated left ejection fraction of 50- 55%. cc: MD Vanessa Rajan PA
[2016-09-21] MEDS: NS 1,000 ML IV SCH ×2 (12:44→23:28)
[2016-09-21] MEDS: CARDIZEM CD PO SCH (16:14)
--- NOTE | 2016-09-21 16:17 | PROGRESS NOTE ---
DATE: 09/21/2016 SUBJECTIVE: This patient states that she is feeling better. Heart rate stable. Cardiology Department is following. OBJECTIVE: Vital Signs: Temperature 97.9 degrees, pulse 78, respiratory rate 20, blood pressure 90/58, oxygen saturation 93% on 3 L of nasal cannula. HEENT: Head normocephalic. No trauma. PERRLA. Neck: Supple. No JVD. No masses. Central trachea. Chest: Clear to auscultation. No wheezing or rales. Cardiovascular: Regular rate and rhythm. Abdomen: Soft, nontender, nondistended. Positive bowel sounds. Extremities: No edema. No clubbing. No cyanosis. Neurological: The patient is alert and oriented x3. LABORATORY: WBC 13.1, hemoglobin 10.6, hematocrit 33.1, platelets 366,000. Sodium 140, potassium 3.8, chloride 103, bicarbonate 24, BUN 4, creatinine 0.7, glucose 87, calcium 8.1, magnesium 1.8. ASSESSMENT AND PLAN: 1. Atrial fibrillation at this moment is rate controlled. Cardiology Department is following this patient. She is on Eliquis, aspirin, diltiazem and Lopressor, we will continue with the same management. 2. Neutropenic fever. The white blood cell count improved, Hematology Department is following this patient. We will continue to monitor. 3. Acute diverticulitis. This patient is on Merrem as directed by Dr. Otoole, we will continue with the same management for now. 4. Diarrhea. This patient's stool was noted to be negative for Clostridium difficile. Continue with the same management. 5. Breast cancer, managed by Dr. Herman. 6. Hypokalemia. Resolved. 7. Vitamin B12 deficiency. Continue with B12 replacement. 8. Deep venous thrombosis prophylaxis provided by [employer]. cc: Johnathon Hess MD
[2016-09-21] MEDS: RESTORIL PO SCH (20:17)
--- NOTE | 2016-09-21 21:27 | PROGRESS NOTE ---
DATE: 09/21/2016 SUBJECTIVE: The patient states that she is feeling significantly better. The diarrhea has nearly resolved. Her clinical course has been remarkable for new onset atrial fibrillation. The Cardiology Service is requesting permission to begin Eliquis from a GI perspective. OBJECTIVE: Vital signs: On exam, her blood pressure is 129/83, pulse 103, respiration 18, temperature of 98.7 degrees. Abdomen: Her abdominal Reveals normoactive bowel sounds. The abdomen is soft and nontender. OBJECTIVE DATA: Reveals a hemoglobin of 6.3 with hematocrit of 33.1, and a white count of 13.11. She has 366,000 platelets. Sodium is 140, potassium 3.8, chloride 103, CO2 24, BUN 4, creatinine 0.7, glucose of 87. Her calcium is 8.1. Her magnesium is 1.2. She is currently having 1-2 soft formed bowel movements per day. RECOMMENDATION: 1. With regard to the diverticulitis, I would continue the antibiotics. She has had interval improvement over the last 3-4 days. 2. At some point in the future, she will require an outpatient colonoscopy following her episode of acute diverticulitis. 3. From a GI perspective, there is no absolute contraindication for anticoagulation with Eliquis therapy in light of her atrial fibrillation. She will need to hold this prior to her outpatient colonoscopy which we will schedule at some point in the near future within the next 3-6 months. 4. Please have the patient return to clinic 3-4 weeks following hospital discharge for interval reassessment. 5. This patient is doing well from a GI perspective, we will sign off and plan to evaluate the patient in the outpatient setting. If there is a change in her clinical course, please feel free to contact us directly. cc: MD Rodolof Monterroso MD Stephen A. Branning, MD Leroy F. Harris, MD Heather Shah, MD Omar J. Sosa-Chirinos, MD
[2016-09-22] MEDS: NORCO-10 PO SCH ×4 (02:08→20:11)
[2016-09-22] MEDS: DILAUDID IV PRN ×4 (02:09→18:11)
[2016-09-22] MEDS: DUONEB (A & A) INH PRN ×3 (02:32→20:34)
--- NOTE | 2016-09-22 05:28 | EKG Report ---
Test Performed on : 09/22/2016 03:52:27 AM Test Reason : conversion to SR Blood Pressure : / mmHG Vent. Rate : 100 BPM Atrial Rate : 100 BPM P-R Int : 150 ms QRS Dur : 096 ms QT Int : 366 ms P-R-T Axes : 076 065 082 degrees QTc Int : 472 ms Normal sinus rhythm. Normal ECG When compared with ECG of 21-SEP-2016 06:31, Sinus rhythm. has replaced Atrial fibrillation. Confirmed by Allen SPICER, Sal Roberson ([id number]) on 09/26/2016 12:36:27 PM
[2016-09-22 05:51] LABS: AGAP 12; ALBUMIN 2.5 g/dL (3.5-5.0); ALKALINE PHOSPHATASE 118 U/L (32-104); BUN 3 mg/dL (8-22); CALCIUM 7.7 mg/dL (8.8-10.2); CHLORIDE 104 mmol/L (98-107); COSMO 276; GOT 13 U/L (10-30); GPT 11 U/L (10-36); POTASSIUM 3.5 mmol/L (3.5-5.1); SODIUM 140 mmol/L (136-145); TCO2 24 mmol/L (25-35); TOTAL BILIRUBIN 0.15 mg/dL (0.20-1.00); TOTAL PROTEIN 4.7 g/dL (6.3-8.3)
[2016-09-22 05:52] LABS: BASO% 0.3 % (0.0-0.8); EOS# 0.07 X1000 (0.0-0.7); EOS% 0.2 % (0.0-10.0); HEMATOCRIT 29.3 % (37.0-47.0); HEMOGLOBIN 9.4 g/dL (12.0-16.0); IMM GRAN# 1.86 X1000 (0.0-0.04); IMM GRAN% 6.1 % (0.0-0.5); LYMPH# 1.32 X1000 (1.2-3.4); LYMPH% 4.3 % (20.5-51.1); MANUAL DIFF NEEDED? YES; MCH 27.4 PG (27-31); MCHC 32.1 g/dL (33-37); MCV 85.4 FL (81-99); MONO# 2.14 X1000 (0.11-0.59); MPV 8.4 FL (7.4-10.4); NEUT% 82.1 % (42.2-75.2); PLT 378 X1000 (130-400); RBC 3.43 XMIL (4.2-5.4)
[2016-09-22] MEDS: PROTONIX IV SCH (06:07)
[2016-09-22 07:19] LABS: BANDS 22 % (0-1); LYMPHS 8 % (21-51); MONO 2 % (1-9)
[2016-09-22 07:20] LABS: HYPOCHROM 1+
[2016-09-22] MEDS: CARDIZEM CD PO SCH (08:03)
[2016-09-22] MEDS: CULTURELLE PO SCH ×2 (08:04→20:11)
[2016-09-22] MEDS: ASPIRIN PO SCH (08:04)
[2016-09-22] MEDS: LOPRESSOR PO SCH ×2 (08:04→20:12)
[2016-09-22] MEDS: QUESTRAN LIGHT PO SCH ×2 (08:05→20:12)
--- NOTE | 2016-09-22 08:09 | PROGRESS NOTE ---
DATE: 09/22/2016 PRESENT ILLNESS: The patient was initially seen because she had neutropenic fever. It was noted, however, on a CAT scan that the patient had sigmoid diverticulitis as well. The patient's white count has recovered and today it was 30,540. MEDICATIONS: The patient has been on meropenem at a dose of 1 g IV every 8 hours for the past 3 days. PHYSICAL EXAMINATION: Vital Signs: Temperature is 98.4 degrees, pulse 57, respirations 20, blood pressure 132/67. General: This is a still an ill-appearing, slightly lethargic female. She is in no acute distress. Lungs: Clear to auscultation. Cardiovascular: Regular heart rate. Abdomen: Soft and nontender. Chest: The patient has a Port-A-Cath in place. The site is not swollen or purulent. LAB AND X-RAY: There are no new radiographic studies. Laboratory studies show a CBC with a white count that is increased to 30,540, hemoglobin 9.4, and platelet count 378,000. Creatinine 0.6. GFR is greater than 60. Liver function studies were normal. ASSESSMENT AND PLAN: The patient has resolved neutropenic fever. She does have sigmoid diverticulitis. I think we should continue on with the patient's meropenem for at least another couple weeks and then, somewhere along the line, there needs to be some CT scan done of the abdomen and pelvis. COMORBIDITIES: Include being elderly, metastatic breast cancer and chemotherapy. cc: Duc Otoole MD MTDD
[2016-09-22] MEDS: MERREM 1 GM in NS 50 ML IV SCH ×2 (08:14→15:00)
[2016-09-22] MEDS: CYANOCOBALAMIN IM SCH (08:14)
[2016-09-22] MEDS ORDERED: MISC. PHARMACY COMMUNICATION SCH (13:15)
[2016-09-22] MEDS: ELIQUIS PO SCH ×3 (13:53→20:11)
--- NOTE | 2016-09-22 13:54 | PROGRESS NOTE ---
DATE: 09/22/2016 SUBJECTIVE: This patient states that she is feeling better. Heart rate is stable. She is complaining of mild fatigue. Family members at the bedside. OBJECTIVE: Vital Signs: Temperature 98.2 degrees, pulse 99, respiratory rate 16, blood pressure 129/59, oxygen saturation 95% on 3L of nasal cannula. HEENT: Head normocephalic. No trauma. PERRLA. Neck: Supple. No JVD. No masses. Central trachea. Chest: Clear to auscultation. No wheezing. No rales. Cardiovascular: RRR. No murmurs. Abdomen: Soft, nontender, nondistended. Positive bowel sounds. Extremities: No edema. No clubbing. No cyanosis. Neurologic: The patient is alert and oriented x3. No focal neurological deficits. LABORATORY: WBC 30.5, hemoglobin 9.4, hematocrit 29.3, platelets 378,000. Sodium 140, potassium 3.5, chloride 104, bicarbonate 24, BUN 3, creatinine 0.6, glucose 92, calcium 7.7, magnesium 1.7, albumin 2.5. ASSESSMENT AND PLAN: 1. Atrial fibrillation. At this moment, she is in normal sinus rhythm. We will continue with the same medication and anticoagulation. 2. Neutropenic fever. The white blood cell count improved, actually increased to 30. Hematology Department is following this patient. 3. Acute diverticulitis. This patient is on Merrem and Dr. Otoole has been following this patient. Probably, this patient will need to stay on antibiotics for a couple of weeks. We will continue to monitor. 4. Diarrhea, resolved. She had today one formed bowel movement. No more diarrhea. 5. Breast cancer, managed by Dr. Herman and Dr. Rowe. 6. Hypokalemia, resolved. 7. Vitamin B12 deficiency. Continue with B12 treatment. 8. Deep vein thrombosis prophylaxis. This patient is on Eliquis. cc: Johnathon Hess MD
[2016-09-22] MEDS: NS 1,000 ML IV SCH (14:54)
[2016-09-22] MEDS: CARDIZEM 100 MG/NS 100 MG/100 ML IVPB IV SCH (19:38)
[2016-09-22] MEDS: RESTORIL PO SCH (20:11)
[2016-09-23] MEDS: MERREM 1 GM in NS 50 ML IV SCH ×3 (01:05→16:45)
[2016-09-23] MEDS: NORCO-10 PO SCH ×4 (01:05→20:41)
[2016-09-23] MEDS: NS 1,000 ML IV SCH ×2 (01:42→15:03)
[2016-09-23] MEDS: DUONEB (A & A) INH PRN ×2 (03:02→08:32)
[2016-09-23 05:38] LABS: BASO% 0.3 % (0.0-0.8); EOS# 0.06 X1000 (0.0-0.7); EOS% 0.2 % (0.0-10.0); HEMATOCRIT 28.7 % (37.0-47.0); HEMOGLOBIN 9.2 g/dL (12.0-16.0); IMM GRAN# 1.52 X1000 (0.0-0.04); IMM GRAN% 4.8 % (0.0-0.5); LYMPH# 1.27 X1000 (1.2-3.4); MANUAL DIFF NEEDED? YES; MCH 27.3 PG (27-31); MCHC 32.1 g/dL (33-37); MCV 85.2 FL (81-99); MONO# 1.83 X1000 (0.11-0.59); MONO% 5.8 % (1.7-9.3); MPV 8.3 FL (7.4-10.4); NEUT% 84.9 % (42.2-75.2); PLT 365 X1000 (130-400); RBC 3.37 XMIL (4.2-5.4)
[2016-09-23] MEDS: DILAUDID IV PRN ×3 (06:01→17:37)
[2016-09-23] MEDS: PROTONIX IV SCH (06:01)
--- NOTE | 2016-09-23 07:14 | PROGRESS NOTE ---
DATE: 09/23/2016 PRESENT ILLNESS: The patient initially had a neutropenic fever. Now, her white count is up to 31,450. She did have a temperature maximum of 100. Exactly what is causing the low-grade fever and leukocytosis is uncertain to me at this time. The patient, on CAT scan, did have evidence of sigmoid diverticulitis. I am uncertain if it is causing the patient's current leukocytosis. MEDICATIONS: This is the 4th day of treatment with meropenem in a dose of 1 g IV every 8 hours. PHYSICAL EXAMINATION: Vital Signs: Temperature is 100 degrees, pulse 90, respirations 24, blood pressure 114/87. General: This is an ill-appearing, elderly female. She is in no acute distress. Lungs: Clear to auscultation. Cardiovascular: Regular heart rate. Abdomen: Soft and nontender. Chest: The patient has a right-sided Port-A-Cath. The site is not erythematous or swollen. LAB AND X-RAY: The patient's sputum culture is negative. CBC shows a white count of 31,450, hemoglobin 9.2, and platelet count 365,000. Creatinine 0.6. GFR is greater than 60. ASSESSMENT AND PLAN: Patient has now a low-grade fever and leukocytosis. The plan is to continue meropenem. I have also ordered blood cultures, a chest x-ray, and a urinalysis and urine culture. If the patient's fever continues, then I will go ahead and repeat the patient's CT scan. The patient does have sigmoid diverticulitis as seen on the patient's CT scan of the abdomen and pelvis. I think we need to continue with meropenem. COMORBIDITIES: Include being elderly, metastatic breast cancer, and chemotherapy. cc: Duc Otoole MD
[2016-09-23 07:26] LABS: BANDS 26 % (0-1); LYMPHS 4 % (21-51); MONO 2 % (1-9)
[2016-09-23 07:50] LABS: BASO% 0.5 % (0.0-0.8); EOS# 0.05 X1000 (0.0-0.7); EOS% 0.2 % (0.0-10.0); HEMATOCRIT 30.8 % (37.0-47.0); HEMOGLOBIN 9.8 g/dL (12.0-16.0); IMM GRAN# 1.23 X1000 (0.0-0.04); IMM GRAN% 4.1 % (0.0-0.5); LYMPH# 1.23 X1000 (1.2-3.4); LYMPH% 4.1 % (20.5-51.1); MANUAL DIFF NEEDED? NO; MCH 27.1 PG (27-31); MCHC 31.8 g/dL (33-37); MCV 85.1 FL (81-99); MONO# 1.72 X1000 (0.11-0.59); MONO% 5.8 % (1.7-9.3); MPV 8.1 FL (7.4-10.4); NEUT% 85.3 % (42.2-75.2); PLT 367 X1000 (130-400); RBC 3.62 XMIL (4.2-5.4)
--- NOTE | 2016-09-23 08:08 | Diag Imaging Result Doc PS360 ---
EXAM: CHEST-2 VIEWS - 09/23/2016 HISTORY: pneumonia TECHNIQUE: Chest two views COMPARISON: 09/18/2016 FINDINGS: Heart size is normal. There are COPD changes. There is been development of small left pleural effusion and apparent mild infiltrate in the posterior left base. There is been development of mild atelectasis at the medial right base and small right pleural effusion. There is no pneumothorax seen. Central venous catheter remains in place. IMPRESSION: Development of mild left basilar infiltrate and small left pleural effusion. Pneumonia cannot be excluded. Development of mild atelectasis at medial right base and small right pleural effusion. Electronically signed by Randell Ramos 09/23/2016 8:06 AM
[2016-09-23 08:20] LABS: AGAP 13; BUN 2 mg/dL (8-22); CALCIUM 7.6 mg/dL (8.8-10.2); CHLORIDE 104 mmol/L (98-107); COSMO 279; POTASSIUM 3.2 mmol/L (3.5-5.1); SODIUM 142 mmol/L (136-145); TCO2 25 mmol/L (25-35)
[2016-09-23] MEDS: CULTURELLE PO SCH ×2 (08:39→20:41)
[2016-09-23] MEDS: ELIQUIS PO SCH ×2 (08:39→20:42)
[2016-09-23] MEDS: CARDIZEM CD PO SCH (08:39)
[2016-09-23] MEDS: ASPIRIN PO SCH (08:40)
[2016-09-23] MEDS: QUESTRAN LIGHT PO SCH ×3 (08:40→21:19)
[2016-09-23] MEDS: CYANOCOBALAMIN IM SCH (08:40)
[2016-09-23] MEDS: LOPRESSOR PO SCH ×2 (08:40→20:42)
--- NOTE | 2016-09-23 16:28 | PROGRESS NOTE ---
DATE: 09/23/2016 SUBJECTIVE: This patient states that she is feeling better. She is tolerating p.o. Heart rate is stable. She is still complaining of mild fatigue. She is in physical therapy and she is doing fine. For the past 2 days the WBC has been high, around 30, and she had a low grade fever. Infectious disease department evaluated this patient and they recommended to go ahead and get a new chest x- ray, urine and blood culture. We will follow up on that. OBJECTIVE: Vital Signs: Temperature 98.1 degrees, pulse 88, respiratory rate 20, blood pressure 159/90, oxygen saturation 96 on 3 L of nasal cannula. HEENT: Head normocephalic. No trauma. PERRLA. Neck: Supple. No JVD. No masses. Central trachea. Chest: Clear to auscultation. No wheezing. No rales. Abdomen: Soft, nontender, nondistended. No hepatosplenomegaly. Extremities: No edema. No clubbing. No cyanosis. Neurological: The patient is alert and oriented x3. No focal deficits. LABORATORY: WBC 29.7, hemoglobin 9.8, hematocrit 30.8, platelet 367,000. Sodium 142, potassium 3.2, chloride 104, bicarbonate 25, BUN 2, creatinine 0.5, glucose 96, calcium 7.6. ASSESSMENT AND PLAN: 1. Patient was originally admitted secondary to neutropenic fever. Hematology department is following this patient. This patient received treatment that decreased the WBC but also can be related to an infection. We will continue with antibiotics. Infectious disease department is following this patient. 2. Leukocytosis. After getting treatment to increase the WBC and antibiotics, the WBC now is high, around 30. We will continue with antibiotics and infectious disease department is following this patient. Urine culture and blood culture have been ordered. 3. Acute diverticulitis. Continue with Merrem. 4. Diarrhea, resolved. 5. Breast cancer. Managed by Dr. Herman and Dr. Rowe. 6. Hypokalemia. I will replace the potassium. 7. Vitamin B12 deficiency. Continue with B12 treatment. 8. Deep vein thrombosis prophylaxis. This patient is on Eliquis. cc: Johnathon Hess MD
[2016-09-23] MEDS: CARDIZEM 100 MG/NS 100 MG/100 ML IVPB IV SCH (18:00)
[2016-09-23] MEDS ORDERED: ZOFRAN IV PRN (20:28)
[2016-09-23] MEDS: RESTORIL PO SCH (20:42)
[2016-09-24] MEDS: MERREM 1 GM in NS 50 ML IV SCH ×3 (00:26→16:33)
[2016-09-24] MEDS: NORCO-10 PO SCH ×4 (02:33→22:12)
[2016-09-24] MEDS: NS 1,000 ML IV SCH ×2 (03:02→04:31)
[2016-09-24] MEDS: BENADRYL PO PRN (03:03)
[2016-09-24] MEDS: PROTONIX IV SCH (06:03)
[2016-09-24 07:17] LABS: BASO% 0.5 % (0.0-0.8); EOS# 0.05 X1000 (0.0-0.7); EOS% 0.2 % (0.0-10.0); HEMATOCRIT 32.3 % (37.0-47.0); HEMOGLOBIN 10.3 g/dL (12.0-16.0); IMM GRAN# 0.89 X1000 (0.0-0.04); IMM GRAN% 4.3 % (0.0-0.5); LYMPH# 1.09 X1000 (1.2-3.4); LYMPH% 5.2 % (20.5-51.1); MANUAL DIFF NEEDED? YES; MCH 27.2 PG (27-31); MCHC 31.9 g/dL (33-37); MCV 85.2 FL (81-99); MONO# 1.55 X1000 (0.11-0.59); MONO% 7.4 % (1.7-9.3); MPV 8.4 FL (7.4-10.4); NEUT% 82.4 % (42.2-75.2); PLT 336 X1000 (130-400); RBC 3.79 XMIL (4.2-5.4)
[2016-09-24] MEDS: DUONEB (A & A) INH PRN ×2 (07:18→19:45)
[2016-09-24 07:32] LABS: AGAP 9; BUN 1 mg/dL (8-22); CHLORIDE 103 mmol/L (98-107); COSMO 281; POTASSIUM 2.9 mmol/L (3.5-5.1); SODIUM 143 mmol/L (136-145); TCO2 31 mmol/L (25-35)
[2016-09-24 07:46] LABS: BANDS 6 % (0-1)
[2016-09-24 07:47] LABS: LYMPHS 2 % (21-51)
[2016-09-24 07:48] LABS: HYPOCHROM 2+
[2016-09-24] MEDS: ASPIRIN PO SCH (09:10)
[2016-09-24] MEDS: LOPRESSOR PO SCH ×2 (09:10→22:03)
[2016-09-24] MEDS: ELIQUIS PO SCH ×2 (09:10→22:03)
[2016-09-24] MEDS: CULTURELLE PO SCH ×2 (09:10→22:02)
[2016-09-24] MEDS: CARDIZEM CD PO SCH (09:10)
[2016-09-24] MEDS: QUESTRAN LIGHT PO SCH ×2 (09:12→22:02)
[2016-09-24] MEDS: CYANOCOBALAMIN IM SCH (09:12)
[2016-09-24] MEDS: HYDROCORTISONE 1% CREAM TOP PRN (09:17)
[2016-09-24] MEDS: DILAUDID IV PRN ×2 (13:06→19:55)
--- NOTE | 2016-09-24 16:14 | PROGRESS NOTE ---
DATE: 09/24/2016 SUBJECTIVE: Today, Ms. Terrazas refers to be doing a lot better. Denies any fever or any chills and no cough. OBJECTIVE: Vital signs: Blood pressure is 124/55, pulse is 74, respirations 18, temperature 97.6. General: Ms. Terrazas is a 75-year-old female. She is in bed, no distress. HEENT: Mucosa is pink and moist. Anicteric. Acyanotic. Neck: Supple. Chest: Good air entry bilateral. A few bibasilar crepitations. Cardiovascular: Regular rate and rhythm. No murmurs, no rubs. No gallops. Abdomen: Soft. Extremities: No pedal edema. STERILIZATION TECH: Patient is alert and oriented x4. Skin: Chest wall has a port on the right upper anterior chest wall. LABORATORY DATA: WBC is 20.84, hemoglobin is 10.3, platelet count of 338. There is only 6% of bands on peripheral smear. Chemistry reviewed. Sodium is 143, potassium is 2.9, and that has been replaced. The rest of chemistry is unremarkable. ASSESSMENT: 1. Neutropenic fever. This is resolved. 2. Acute sigmoid diverticulitis. Patient is on antibiotics. 3. Leukocytosis. I think this is probably because the patient was given Neupogen when she had neutropenic fever. However, underlying infection is also possible since patient had diverticulitis. She has been re-cultured yesterday because of fever. Will be waiting 48 hours on this culture. 4. Breast cancer. Managed by Dr. Herman. 5. Hypokalemia. We will replace this. 6. Vitamin B12 deficiency. PLAN: So, in general, I think Ms. Terrazas is a whole lot better today. She has been afebrile for 24 hours. Blood culture done yesterday is still pending final result. I think by tomorrow we should have a preliminary report. If the blood culture is negative, then I think we can discharge the patient home on oral antibiotics to followup with Dr. Herman and Dr. Otoole. cc: Juliano Pierre MD
[2016-09-24] MEDS: RESTORIL PO SCH (22:02)
[2016-09-25] MEDS: MERREM 1 GM in NS 50 ML IV SCH ×3 (00:23→15:51)
[2016-09-25] MEDS: DILAUDID IV PRN ×3 (00:42→15:52)
[2016-09-25] MEDS: NORCO-10 PO SCH ×3 (04:56→17:41)
[2016-09-25] MEDS: PROTONIX IV SCH (06:00)
[2016-09-25] MEDS: SODIUM CHLORIDE 0.9% INJ SCH (06:01)
[2016-09-25] MEDS: DUONEB (A & A) INH PRN (06:20)
[2016-09-25 06:27] LABS: BASO% 0.7 % (0.0-0.8); EOS# 0.05 X1000 (0.0-0.7); EOS% 0.4 % (0.0-10.0); HEMATOCRIT 30.3 % (37.0-47.0); HEMOGLOBIN 9.7 g/dL (12.0-16.0); IMM GRAN# 0.71 X1000 (0.0-0.04); IMM GRAN% 5.1 % (0.0-0.5); LYMPH# 0.99 X1000 (1.2-3.4); LYMPH% 7.1 % (20.5-51.1); MANUAL DIFF NEEDED? YES; MCH 27.3 PG (27-31); MCV 85.4 FL (81-99); MONO# 1.43 X1000 (0.11-0.59); MONO% 10.3 % (1.7-9.3); MPV 8.2 FL (7.4-10.4); NEUT% 76.4 % (42.2-75.2); PLT 322 X1000 (130-400); RBC 3.55 XMIL (4.2-5.4)
[2016-09-25 06:34] LABS: AGAP 10; BUN 1 mg/dL (8-22); CALCIUM 7.6 mg/dL (8.8-10.2); CHLORIDE 100 mmol/L (98-107); COSMO 279; POTASSIUM 2.9 mmol/L (3.5-5.1); SODIUM 142 mmol/L (136-145); TCO2 32 mmol/L (25-35)
[2016-09-25 07:03] LABS: BANDS 8 % (0-1); LYMPHS 10 % (21-51); MONO 4 % (1-9)
[2016-09-25] MEDS ORDERED: KLOR-CON PO ONE (07:55)
[2016-09-25 09:03] VITALS: BP 134/58
[2016-09-25] MEDS: APRESOLINE PO SCH ×5 (09:20→17:36)
[2016-09-25] MEDS: ASPIRIN PO SCH (10:52)
[2016-09-25] MEDS: ELIQUIS PO SCH (10:52)
[2016-09-25] MEDS: LOPRESSOR PO SCH (10:52)
[2016-09-25] MEDS: CARDIZEM CD PO SCH (10:52)
[2016-09-25] MEDS: CULTURELLE PO SCH (10:52)
[2016-09-25] MEDS: QUESTRAN LIGHT PO SCH (10:54)
[2016-09-25] MEDS: CYANOCOBALAMIN IM SCH (10:56)
[2016-09-25] MEDS: KLOR-CON PO ONE ×2 (12:50→13:05)
--- NOTE | 2016-09-25 14:56 | PROGRESS NOTE ---
DATE: 09/25/2016 SUBJECTIVE: Patient initially had neutropenic fever following chemotherapy for her cancer. She rapidly had a marked increase in her white count and her fever went away. On CAT scan, the patient was found to have sigmoid diverticulitis. MEDICATIONS: This is the 6th day of treatment with meropenem being given in a dose of 1 g IV every 8 hours. PHYSICAL EXAMINATION: Vital Signs: Temperature is 97.6, pulse 89, respirations 14, blood pressure 134/58. Generally: The patient looks much better than she did in the past week. She is alert. She has been walking in the [place] and she has been eating. Lungs: Clear to auscultation. Cardiovascular: Regular heart rate. Abdomen: Soft and nontender. Chest: The patient has a Port-A-Cath present on the right side. The site is not swollen or tender. LAB AND X-RAY: The white count now has come down to 13,930, hemoglobin is 9.7, and platelet count is 322,000. Creatinine is 0.4. GFR is greater than 60. Repeat blood cultures are sterile. Urine is growing yeast. ASSESSMENT AND PLAN: The patient has sigmoid diverticulitis, and I think now that is the source of her leukocytosis. My plan is to send the patient home on p.o. Levaquin and Flagyl for another 2 weeks at which time I will see them in the office and repeat her CAT scan. If the diverticulitis has cleared, then she will not need any further antibiotics. If it has not, then I will continue the antibiotics and depending on how it looks on CAT scan, we may need to consult a surgeon although this probably will not happen,especially in view of the fact that she has metastatic breast cancer. The doses of the antibiotics the patient is going home on are Levaquin 500 mg daily, and Flagyl 500 mg every 8 hours, both for 2 weeks, at which time, as mentioned above, I will see them in my office. COMORBIDITIES: Include being elderly, metastatic breast cancer, and chemotherapy. cc: Duc Otoole MD
[2016-09-25] MEDS ORDERED: HEPARIN INJ ONE (17:56)
--- NOTE | 2016-09-25 18:15 | DISCHARGE SUMMARY ---
ADMISSION DATE: 09/18/2016 DISCHARGE DATE: DISCHARGE DIAGNOSIS: 1. Neutropenic fever, resolved. 2. Toxic metabolic encephalopathy. 3. Normocytic anemia. 4. Diarrhea, resolved. 5. Breast cancer with ductal carcinoma. 6. Coronary artery disease. 7. Possible history of chronic obstructive pulmonary disease with hypoxemia. 8. Vitamin B12 deficiency. 9. Acute sigmoid diverticulitis. 10. New onset severe atrial fibrillation. HOSPITAL COURSE: A 75-year-old, female with a past medical history of breast cancer with ductal carcinoma, followed by Dr. Earnestine Herman. She has been receiving chemotherapy and her last dose was the week before admission, she also has a history of abdominal aneurysm, and hypertension, coronary artery disease, history of NE, possible COPD, hyperlipidemia, hypertension. She came to the emergency department and was admitted on 09/18/2016 with a chief complaint of bouts of diarrhea, nausea, and vomiting, she came in also with altered mental status and she was unable to give any type of information. Recently she was treated with antibiotics for UTI and since that time, her family states that she was really going downhill, with confusion, nausea, vomiting, and diarrhea. At the moment of admission they denied fever but they reported some chills. At the emergency Department she had lab work done that showed an ANC count of 0, and low grade fever 91.1, at the time of admission, no clear source of infection was found, and lab work and images were ordered, CT of the chest, abdomen and pelvis was performed that showed pulmonary emphysema and sigmoid colonic diverticulitis with no evidence of perforation. She was placed on antibiotics and Gastroenterology Department was consulted, Infectious Disease Department also was consulted and Dr. Otoole changed the antibiotics to meropenem. While she was hospitalized she presented with new onset of atrial fibrillation. Cardiology Department evaluated this patient and they adjusted her medications, and also they started this patient on anticoagulation. The patient was improving on a daily basis. Hematology Department also evaluated this patient and they gave her Neupogen when she had neutropenic fever, blood cultures have been negative. Talking with the family and the patient, they did not know that this patient had emphysema corroborated by a CT scan and also x-rays, so probably this patient has a history of COPD but at this point, she is not in exacerbation but she is hypoxemic, so upon discharge this patient will need oxygen at home and she should be evaluated by her primary care doctor to see if she needs to be seen by a career development director. Today Mrs. Terrazas is doing much better. She is tolerating p.o. She is ambulating but the oxygen saturation is low. Otherwise, she is feeling a little bit better. Family members at the bedside, Dr. Otoole evaluated this patient again and he recommended to send this patient home with levofloxacin and Flagyl, and will follow up with him in 2 weeks. As I mentioned before, she will be discharged with oxygen. DISCHARGE PHYSICAL EXAMINATION: Vital signs: Temperature 97.6 degrees, pulse 89, respiratory rate 14, blood pressure 134/58, oxygen saturation 94% on 3 L of nasal cannula and 88% on room air without physical activity. HEENT: Head normocephalic. No trauma. PERRLA. Neck: Supple. No JVD. No masses. Central trachea. Chest: Clear to auscultation. No wheezing. No rales. Abdomen: Soft, nontender, nondistended. No hepatosplenomegaly. Extremities: No edema. No clubbing. No cyanosis. Neurological Examination: The patient is alert and oriented x3. She moves all 4 extremities. LABORATORY: WBC 13.9, hemoglobin 9.7, hematocrit 30.3, platelets 322,000. Sodium 142, potassium 2.9, chloride 100, bicarbonate 32, BUN 1, creatinine 0.4, glucose 102, calcium 7.6. FOLLOWUP: Followup by Dr. Dahl in [address] Otoole in 2 weeks. Followup by her primary care doctor in 1 week. Follow up this coming with Dr. Earnestine Herman. DISCHARGE MEDICATION: Temazepam 30 mg p.o. at bedtime. Pravastatin 80 mg p.o. daily. Ondansetron 8 mg p.o. 3 times daily p.r.n. nausea, vomiting. Flagyl 500 mg p.o. 3 times daily. Metoprolol 50 mg p.o. b.i.d. Levofloxacin 500 mg p.o. daily. Culturelle 1 tablet p.o. b.i.d. Hydrocodone acetaminophen 10/325 one tablet p.o. q.6 hours p.r.n. Hydralazine 25 mg p.o. 3 times daily. Diltiazem 180 mg p.o. daily. Cyanocobalamin 1000 mcg intramuscular q.7 days for 1 month and then 1000 mcg intramuscular every month. Questran 4 g p.o. b.i.d. Aspirin 81 mg p.o. daily. Eliquis 5 mg p.o. b.i.d. Acetaminophen 650 mg p.o. q.4 hours p.r.n. fever. cc: Johnathon Hess MD MTDD
[2016-10-02] MEDS ORDERED: CYANOCOBALAMIN IM SCH (09:00)
[2016-11-23] MEDS ORDERED: CYANOCOBALAMIN IM SCH (09:00)
== END 2016-09-25 18:27 | disposition home or self-care (01) ==
LOC: ED 10:17 → SUATTDRO 13:51 → 3N 13:51 → 3S 09-20 08:02 → 3N 09-23 18:28
PROVIDERS: ATTEND Internal Medicine

== ENCOUNTER 2016-10-18 21:29 | Inpatient (IN) ==
[2016-10-18 22:29] LABS: BASO% 1.4 % (0.0-0.8); EOS# 0.93 X1000 (0.0-0.7); EOS% 4.2 % (0.0-10.0); HEMATOCRIT 31.2 % (37.0-47.0); HEMOGLOBIN 9.9 g/dL (12.0-16.0); IMM GRAN# 1.64 X1000 (0.0-0.04); IMM GRAN% 7.4 % (0.0-0.5); LYMPH# 0.94 X1000 (1.2-3.4); LYMPH% 4.2 % (20.5-51.1); MANUAL DIFF NEEDED? NO; MCH 27.2 PG (27-31); MCHC 31.7 g/dL (33-37); MCV 85.7 FL (81-99); MONO# 0.49 X1000 (0.11-0.59); MONO% 2.2 % (1.7-9.3); MPV 9.1 FL (7.4-10.4); NEUT% 80.6 % (42.2-75.2); PLT 361 X1000 (130-400); RBC 3.64 XMIL (4.2-5.4)
[2016-10-18 22:36] LABS: INR 1.03; PROTIME 10.8 Seconds (9.2-11.7)
[2016-10-18] MEDS ORDERED: NS 1,000 ML IV ONE (22:45)
[2016-10-18 22:46] LABS: AGAP 11; ALBUMIN 3.5 g/dL (3.5-5.0); ALKALINE PHOSPHATASE 180 U/L (32-104); BUN 11 mg/dL (8-22); CALCIUM 8.5 mg/dL (8.8-10.2); CHLORIDE 101 mmol/L (98-107); CK PROFILE 8 U/L (24-173); COSMO 275; GOT 11 U/L (10-30); GPT 6 U/L (10-36); POTASSIUM 4.1 mmol/L (3.5-5.1); SODIUM 137 mmol/L (136-145); TCO2 25 mmol/L (25-35); TOTAL BILIRUBIN 0.62 mg/dL (0.20-1.00); TOTAL PROTEIN 6.6 g/dL (6.3-8.3)
--- NOTE | 2016-10-18 23:02 | PROVIDER DOCUMENTATION ---
HPI-General Adult - General Chief Complaint: Diarrhea Stated Complaint: FEVER, VOMITING Time Seen by Provider: 10/18/16 22:43 Source: patient Allergies/Adverse Reactions: Patient Allergies Allergy/AdvReac Type Severity Reaction Status Date / Time latex Allergy RASH Verified 10/19/16 00:54 Penicillins Allergy Unknown Verified 10/19/16 00:54 Sulfa (Sulfonamide Allergy Unknown Verified 10/19/16 00:54 Antibiotics) Home Medications: Home Medication List Medication Instructions Recorded Confirmed Last Taken Type Pravastatin Sodium 80 mg PO DAILY 01/21/14 09/18/16 09/17/16 20:00 History Temazepam [Restoril] 30 mg PO HS 01/21/14 09/18/16 1 Day Ago History Ondansetron [Zofran] 8 mg PO TID PRN PRN #30 tablet 01/27/14 09/18/16 09/18/16 08:15 Rx Acetaminophen [Tylenol] 650 mg PO Q4H PRN PRN #0 tablet 09/25/16 Unknown Rx Apixaban [Eliquis] 5 mg PO BID #180 tablet 09/25/16 Unknown Rx Aspirin 81 mg PO DAILY chewtab 09/25/16 Unknown Rx Cholestyramine/Aspartame [Questran 4 gm PO BID #60 packet 09/25/16 Unknown Rx Light] Cyanocobalamin 1,000 microgm IM Q30D #6 vial 09/25/16 Unknown Rx Cyanocobalamin 1,000 microgm IM Q7D #4 vial 09/25/16 Unknown Rx Diltiazem C.d. [Cardizem Cd] 180 mg PO DAILY #90 capsule 09/25/16 Unknown Rx Hydralazine [Apresoline] 25 mg PO TID #90 tablet 09/25/16 Unknown Rx Hydrocodone Bit/Acetaminophen 1 each PO Q6HR #20 tablet 09/25/16 Unknown Rx [Hydrocodon-Acetaminophn 10-325] Lactobacillus Rhamnosus GG 1 each PO BID capsule 09/25/16 Unknown Rx [Culturelle] Levofloxacin [Levaquin] 500 mg PO DAILY #14 tablet 09/25/16 Unknown Rx Metoprolol [Lopressor] 50 mg PO BID #120 tablet 09/25/16 Unknown Rx Metronidazole [Flagyl] 500 mg PO TID #42 tablet 09/25/16 Unknown Rx - History of Present Illness -Gen Adult Nature of Presenting Problems: Pt comes in with complaint of diarrhea since yesterday morning. She received chemo then also a shot to help elevate her WBC count. This morning she started having Fever and chills with a temp max of 102 at home. Temp on arrival was 99.8. She also has nausea but no vomiting. Review of Systems - Adult - REVIEW OF SYSTEMS - ADULT Constitutional: reports: see HPI, chills, fever. denies: fatique, night sweats , weight gain, weight loss Eyes: reports: no symptoms reported. denies: discharge, dry eyes, decreased vision, blurred vision, double vision, eye pain, redness Ears, Nose, Mouth & Throat: reports: no symptoms reported. denies: ear discharge, ear pain, hearing loss, tinnitus, epistaxis, nose pain, loose teeth, mouth/dental pain, mouth swelling, hoarseness, throat pain, throat swelling Cardiovascular: reports: no symptoms reported. denies: chest pain, edema, heart murmur, irregular heart rate, orthopnea, palpitations, poor circulation, PND, syncope Respiratory: reports: no symptoms reported. denies: chronic cough, cough, dyspnea on exertion, excessive sputum production, hemoptysis, pleurisy, shortness of breath, wheezing Gastrointestinal: reports: see HPI, abdominal pain, diarrhea, nausea. denies: hematemesis, constipation, difficulty swallowing, frequent heartburn, poor appetite, rectal bleeding, vomiting Genitourinary: reports: no symptoms reported. denies: dysuria, discharge, frequency, flank pain, hematuria, incontinence, urinary retention, urgency Musculoskeletal: reports: no symptoms reported. denies: bone pain, back pain, frequent leg cramps, joint pain, muscle aches, muscle weakness, neck pain Integumentary: reports: no symptoms reported. denies: hives, hair loss, itching , nail changes, rash, skin sores/ulcer, skin thickening Neurological: reports: see HPI, headache/migraines. denies: ataxia, dizziness/ vertigo, loss of balance, numbness, paresthesia, seizure, slurred speech, syncope, tremors Psychiatric: reports: no symptoms reported. denies: anxiety, anti-depressant use, alcohol/drug dependence, emotional problems, panic attacks, suicidal thoughts Endocrine: reports: no symptoms reported. denies: change in skin pigment, excessive sweating, goiter, heat intolerance, increased hunger, increased thirst Hematologic/Lymphatic: reports: no symptoms reported. denies: blood clots, easy bruising, lymphedema, prolonged bleeding, swollen lymph nodes, transfusions Allergic/Immunologic: reports: no symptoms reported. denies: allergic reactions , allergic rhinitis, asthma, eczema, frequent infections, hives, positive PPD, urticaria All Other Systems: Reviewed and Negative Past History - Adult - PAST MEDICAL HISTORY-ADULT Review of Records: reports: Old Records Reviewed, Nursing Assessment Review, Medications Reviewed, Social history reviewed & non-contributory. Major Childhood Illnesses: reports: denies history Cardiovascular: reports: HTN, hyperlipidemia, [place] Respiratory: reports: denies history Gastrointestinal: reports: GERD, other (PUD) Obstetrical/Gynecological: reports: denies history Genitourinary: reports: denies history Musculoskeletal: reports: arthritis Neurological: reports: denies history Endocrine/Immune: reports: denies history Other Conditions: reports: denies history - PRIOR SURGERIES/PROCEDURES Surgical/Procedure History: reports: cardiac stent, hysterectomy - PRIOR HOSPITALIZATIONS Prior Hospitalizations: reports: none - IMMUNIZATION STATUS Childhood Immunizations: See Nurse Assessment Flu Vaccine: See Nurse Assessment - FAMILY HISTORY Family History: reviewed, not pertinent - SOCIAL HISTORY Smoking: denies Substance Use: none/never Alcohol Use Frequency: never Living Situation: family Physical Exam-General - PHYSICAL EXAM-ADULT Initial Vital Signs Reviewed: Yes - CONSTITUTIONAL General Appearance: alert, mild distress - EYES Eyes: PERRL/EOMI, pink conjunctivae - HEAD, EARS, NOSE, MOUTH & THROAT HENMT: normocephalic/atraumatic, moist mucous membranes, normal ENT inspection - NECK Neck: non-tender, full range of motion - RESPIRATORY Respiratory: chest non-tender, lungs clear, normal breath sounds - CARDIOVASCULAR Cardiovascular: normal peripheral pulses, regular rate, rhythm - GASTROINTESTINAL (ABDOMEN) Abdominal Exam: normal bowel sounds, non tender, soft - MUSCULOSKELETAL Back Exam: normal inspection, no CVA tenderness, no vertebral tenderness Extremity: normal range of motion, non-tender - SKIN Integumentary: normal color, normal turgor, warm/dry - NEUROLOGIC 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: 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 as tested, grossly normal - PSYCHIATRIC Psych/Mental Status: normal thought content, normal thought process, oriented x 3, depressed affect Progress - PLAN OF CARE/RESULTS Progress/Plan/Lab Results: Vital Signs - 8 hr 10/18/16 21:34 Temperature 99.8 F H Pulse Rate 123 H Respiratory Rate 18 Blood Pressure 111/61 O2 Sat by Pulse Oximetry 90 L Laboratory Results - last 24 hr 10/18/16 10/18/16 10/18/16 22:00 22:00 22:00 WBC 22.28 H RBC 3.64 L Hgb 9.9 L Hct 31.2 L MCV 85.7 MCH 27.2 MCHC 31.7 L RDW Std Deviation 15.6 H Plt Count 361 MPV 9.1 Immature Gran % (Auto) 7.4 H Neut % (Auto) 80.6 H Lymph % (Auto) 4.2 L [place] % (Auto) 2.2 Eos % (Auto) 4.2 Baso % (Auto) 1.4 H Immature Gran # (Auto) 1.64 H Neut # (Auto) 17.96 H Lymph # (Auto) 0.94 L [place] # (Auto) 0.49 Eos # (Auto) 0.93 H Baso # (Auto) 0.32 H PT INR PTT (Actin FS) Sodium 137 Potassium 4.1 Chloride 101 Carbon Dioxide 25 Anion Gap 11 BUN 11 Creatinine 0.6 Estimated GFR/1.73 m2 > 60 BUN/Creatinine Ratio 18 Glucose 129 H Calculated Osmolality 275 Calcium 8.5 L Total Bilirubin 0.62 AST 11 ALT 6 L Alkaline Phosphatase 180 H Creatine Kinase 8 L Troponin T Total Protein 6.6 Albumin 3.5 Globulin 3.1 Albumin/Globulin Ratio 1.1 Plasma Lactate 0.9 10/18/16 10/18/16 22:00 22:00 WBC RBC Hgb Hct MCV MCH MCHC RDW Std Deviation Plt Count MPV Immature Gran % (Auto) Neut % (Auto) Lymph % (Auto) [place] % (Auto) Eos % (Auto) Baso % (Auto) Immature Gran # (Auto) Neut # (Auto) Lymph # (Auto) [place] # (Auto) Eos # (Auto) Baso # (Auto) PT 10.8 INR 1.03 PTT (Actin FS) 28.0 Sodium Potassium Chloride Carbon Dioxide Anion Gap BUN Creatinine Estimated GFR/1.73 m2 BUN/Creatinine Ratio Glucose Calculated Osmolality Calcium Total Bilirubin AST ALT Alkaline Phosphatase Creatine Kinase Troponin T < 0.010 Total Protein Albumin Globulin Albumin/Globulin Ratio Plasma Lactate Orders Category Date Time Status Cardiac Monitoring DIRECTED Care 10/18/16 21:43 Active IV Insertion ORDERED Care 10/18/16 21:43 Active Notify MD of + Sepsis Screen NOW Care 10/18/16 21:43 Active CHEST-2 VIEWS [RAD] Stat Exams 10/18/16 21:43 Taken BLOOD CULTURE [BLDCUL] Stat Lab 10/18/16 22:00 Ordered CBC WITH DIFF [HEME] Stat Lab 10/18/16 22:00 Completed CK PROFILE [SP CHEM] Stat Lab 10/18/16 22:00 Completed COMPREHENSIVE METABOLIC PANEL [CHEM] Stat Lab 10/18/16 22:00 Completed LACTATE, PLASMA [CHEM] Stat Lab 10/18/16 22:00 Completed PROTIME WITH INR [COAG] Stat Lab 10/18/16 22:00 Completed PTT [COAG] Stat Lab 10/18/16 22:00 Completed TROPONIN T Stat Lab 10/18/16 22:00 Completed 0.9% Sodium Chloride Inj [Ns] 1,000 ml Med 10/18/16 22:45 Active IV 999 mls/hr Oxygen Device Stat Oth 10/18/16 21:43 Active Result Diagrams: 10/18/16 22:00 10/18/16 22:00 - XRAY 1 XRAY Study: Chest XRAY Interpretation: COPD, small right effusion (hcb) - CONSULTS/PCP/HOSPITALIST Notification #1 *Consult/PCP/Hospitalist*: [email or web address] Time Discussed: 01:02 Reason/Comments: afib c RVR Consult Disposition: Admit Departure - Departure Date of Disposition Decision: 10/19/16 Time of Disposition Decision: 00:51 DIAGNOSIS: Febrile illness, Atrial fibrillation with rapid ventricular response Diarrhea Qualifiers: Diarrhea type: unspecified type Qualified Code(s): R19.7 - Diarrhea, unspecified Disposition: ADMITTED INPATIENT 09 Certified Medical Emergency: Emergent Condition: Good Additional Freetext Instructions: ED Follow Up Instructions: You have been treated by a care provider in the Emergency Department. These instructions are being provided to you so you can have an understanding of how to care for yourself upon discharge. Upon discharge from the Emergency Department, you are responsible for making arrangements for follow-up care by a physician of your choice. Take all prescribed medications as directed. Return to the Emergency Department immediately for any new or worsening symptoms. You may call the Physician Referral phone number at [phone] to obtain a list of Physicians who are taking new patients. Referrals and Follow-Ups: Nathan Lara MD [Primary Care Provider] - - Critical Care Note This patient required my direct & personal management of CC.: No Attestation - Physician/ PURNIMA Attestation Patient care was provided by Advanced Practice Provider:: Yes Advanced Practice Provider:: Marla Martel Advanced Practice Provider documentation review:: The Mid-level provider documentation, treatment plan and medical decision making was reviewed by the physician who agrees with all treatment and medical decision making by the MLP.
[2016-10-18] MEDS ORDERED: LOMOTIL PO ONE (23:24)
[2016-10-19] MEDS ORDERED: CARDIZEM IV ONE (01:00)
[2016-10-19] MEDS ORDERED: MORPHINE IV ONE (01:42)
[2016-10-19] MEDS ORDERED: LANOXIN IV ONE (01:42)
[2016-10-19] MEDS ORDERED: NS 1,000 ML IV ONE (01:42)
[2016-10-19 02:32] LABS: URINE MICRO REVIEW NEEDED? NO; URINE SOURCE CLEAN CATCH
[2016-10-19 02:43] LABS: BILIRUBIN URINE NEGATIVE (NEGATIVE); BLOOD URINE NEGATIVE (NEGATIVE); COLOR STRAW; GLUCOSE URINE NEGATIVE (NEGATIVE); LEUKOCYTES URINE NEGATIVE (NEGATIVE); NITRITE URINE NEGATIVE (NEGATIVE); PH URINE 5.5; PROTEIN URINE NEGATIVE (NEGATIVE); SP GRAVITY URINE 1.001; TURBIDITY URINE CLEAR (CLEAR); UR EPITHELIAL CELLS <10 /HPF (<10); URINE BACTERIA NEGATIVE /HPF; URINE RBC <10 /HPF (<10); URINE WBC <10 /HPF (<10); UROBILINOGEN URINE NORMAL (NORMAL)
--- NOTE | 2016-10-19 02:46 | ED EKG INTERP ---
This chart was entered by Tatianna Kyle Scribe, acting as scribe for Nikita Jamil MD. EKG Interpretation - EKG Time of EKG reading by physician:: 01:01 EKG Read and Signed by:: Nikita Jamil EKG Interpretation (*Must complete 3 of following elements*): Abnormal Rate: 137 Rhythm: Afib w/ RVR with premature ventricular or abberantly conducted complexes Comments: Nonspecific t wave abnormality, Abnormal ECG This chart was documented by the indicated scribe, (Tatianna Kyle Scribe) and accurately reflects the services I performed and decisions made by me, Nikita Jamil MD, as attested by the provider's signature.
[2016-10-19] MEDS ORDERED: ZOFRAN IV PRN (03:05)
[2016-10-19] MEDS ORDERED: PROTONIX PO ONE (03:05)
[2016-10-19] MEDS ORDERED: TYLENOL PO PRN (03:05)
[2016-10-19] MEDS ORDERED: CARDIZEM 100 MG/NS 100 MG/100 ML IVPB IV SCH (03:05)
[2016-10-19] MEDS ORDERED: POTASSIUM CHLORIDE 10 MEQ in NS 1,000 ML IV ONE (03:05)
--- NOTE | 2016-10-19 03:27 | HISTORY AND PHYSICAL ---
A patient of Dr. Nathan Lara, a patient of Dr. Earnestine Herman. REASON FOR ADMISSION: Fever, nausea, vomiting, and diarrhea. HISTORY OF PRESENT ILLNESS: Ms. Lety Terrazas is an unfortunate, 75-year-old lady who was last admitted here for complaints of nausea, vomiting, and confusion. She last had chemotherapy on 10/14/2016 for breast cancer. She was doing well up until about 3 days ago when she had recurrent nausea, vomiting, and diarrhea, on average no less than 10 times per day. She denies any blood in the stool but whenever she wipes herself, sometimes notices some blood on the tissue paper. No melenic stools. She also complains of diffuse spontaneous intermittent abdominal cramps, usually preceding the diarrhea. Not aggravated by meals. She denies any genitourinary complaints or decline in urine output. Stated that about 2 weeks ago, she was on antibiotics for some presumed infection. She also denies any contact with anybody with GI symptoms. No recent travels. She denies any thirst. No change in the color of her urine. She came in today primarily because she had a temperature spike of 102 yesterday evening, and her nausea, vomiting, and diarrhea had not subsided. Patient, oddly enough, denies any cough or any chest pain but since she has been in the ER, has noted some mild shortness of breath but no palpitations. No antecedent leg swelling or pain or redness. No neurological complaints except for a dull frontal headache which started this evening. No visual symptoms. No neck stiffness. REVIEW OF SYSTEMS: Twelve system review is negative. Positive findings per HPI. ALLERGIES: Latex, penicillin and, sulfa. HOME MEDICATIONS: Not available for review, has not been updated but per her old records, she was taking Tylenol, Eliquis, aspirin, cholestyramine, vitamin B12, diltiazem CD, hydralazine, hydrocodone, lactobacillus, Levaquin, metoprolol, Flagyl, Zofran, pravastatin, and temazepam. FAMILY HISTORY: Notable for asthma, heart disease, diabetes, thyroid disease, and breast cancer. SOCIAL HISTORY: Does not use tobacco or alcohol use, or illicit drugs. SURGICAL HISTORY: She has had AAA repair, cataract surgery bilaterally, hysterectomy, and breast biopsy. LABORATORY WORK: EKG was ordered, yet to be done. Other chest films does show left diaphragm elevation but no overt infiltrate. White count 22,000, hemoglobin and hematocrit 9 and 31, platelets 361,000. Of note, patient was given granulocyte stimulating factor within the last 1 week. Neutrophil percent is 80%. Chemistry: Glucose is 129. CK 8, troponin negative. Alkaline phosphatase 180, lactate 0.9. PT, PTT normal. Troponin is negative. Urinalysis is pending. PHYSICAL EXAMINATION: GENERAL: Chronically ill, elderly woman who is alert and oriented to person, place, time, with flat affect and depressed mood. She is very reticent. HEENT: Head is normocephalic. She has alopecia. Eyes: EVA, EOMI. She is anicteric but pale. ENT and oropharynx exams grossly normal. NECK: Supple. No JVD. No carotid bruit. No thyromegaly. CHEST: Clear to auscultation with good air entry in both lung badillo. CARDIOVASCULAR: First and second heart sounds heard. No gallops, murmurs, rubs. Rhythm is irregular. ABDOMEN: Full, soft, with mild epigastric tenderness. No rebound or guarding. Bowel sounds are hyperactive. RECTAL: Examination is deferred. EXTREMITIES: No edema, clubbing, or peripheral cyanosis. Good pulses distally. NEUROLOGICAL: No focal deficits. SKIN: Intact. No breakdown, lesions, or erythema. MUSCULOSKELETAL: Examination is grossly normal. ASSESSMENT: 1. Atrial fibrillation with rapid ventricular rate, inciting factor query dehydration, query the possibility of pulmonary thromboembolism. Plan at this time, we will start the patient on Cardizem drip after receiving IV push Cardizem and digoxin. First, we will give the patient 2 L fluid bolus challenge to see if this may have been part of the inciting factor. Also, if this continues, would suggest to look into the possibility of the patient having a PE, especially due to the fact that she has ongoing malignancy. We will continue the patient's Eliquis in the interim except if she has a pulmonary embolism in which case we will need to change the current dosage to treat this problem accordingly. Consult Dr. Pratt to see patient in the morning. Check thyroid function tests. 2. Leukocytosis, probably from GSF shot. However, we will cover patient empirically with antibiotics. Blood cultures, urinalysis, and a C. difficile toxin. Continue cholestyramine for the diarrhea. 3. Persistent diarrhea. Could be effect of chemotherapy. Cannot rule out underlying possibility of C. difficile colitis since she has been exposed to antibiotics recently. Await above tests. 4. Coronary artery disease. Goal to keep rate under control so as to not tip patient into an ischemic event. We will do serial troponins to monitor this. Continue with her beta blockers, calcium channel blockers, and oral digoxin. Failing this, may also need to consider amiodarone but I will defer to deputy manager. 5. Hypertension. We may need to increase the dosages of metoprolol and Cardizem if blood pressure permits so we can get tighter rate control. 6. Breast cancer. We will consult Dr. Earnestine Herman for further input. 7. Hyperlipidemia. Continue with Pravachol. cc: MD Nathan Pan MD MTDD
[2016-10-19] MEDS: LEVAQUIN 500 MG/D5W 500 MG/100 ML IVPB IV SCH (03:45)
[2016-10-19] MEDS: NORCO-7.5 PO PRN ×5 (03:45→21:29)
[2016-10-19] MEDS: LOPRESSOR PO SCH ×5 (03:55→20:40)
--- NOTE | 2016-10-19 05:32 | Diag Imaging Result Doc PS360 ---
EXAM: CHEST-2 VIEWS HISTORY: fever; breast CA patient TECHNIQUE: COMPARISON: 09/23/2016 FINDINGS: The lungs are well expanded. The heart is not enlarged. The vessels are not distended. There are no infiltrates. No pleural effusions. No change in the right-sided portacatheter. No pneumothorax. There are small granuloma in the left base. No lung nodules identified. IMPRESSION: No pneumonia. Electronically signed by Gamal Chaudhary 10/19/2016 5:29 AM
[2016-10-19] MEDS: ASPIRIN PO SCH ×2 (07:49→09:34)
[2016-10-19] MEDS: PRAVACHOL PO SCH ×2 (07:49→09:34)
[2016-10-19] MEDS: ELIQUIS PO SCH ×3 (07:50→21:34)
[2016-10-19] MEDS: QUESTRAN LIGHT PO SCH ×3 (07:50→21:34)
--- NOTE | 2016-10-19 10:09 | CONSULTATION ---
DATE OF CONSULTATION: 10/19/2016 REQUESTING PHYSICIAN: Dr. Carvalho REASON FOR CONSULTATION: Breast cancer, patient known. Admission date is 10/19. HISTORY OF PRESENT ILLNESS: Ms. Lety Terrazas is a 75-year-old, female , who is known to us as we are currently treating her for breast cancer. Patient last received her chemotherapy cycle #2 of Taxotere Cytoxan on 10/14/2016 in our office. She also received a Neulasta injection on 10/15/2016. The patient presented to the [facility] Emergency Department late last night/early this morning complaining of nausea and vomiting and diarrhea as well as a fever of 102. Patient has been having the nausea and vomiting and copious amounts of diarrhea since October 17 per her sister's report, who is at bedside. The patient is also complaining of generalized weakness and fatigue. The patient is having multiple bouts of diarrhea per day that was unrelieved with Imodium. Patient is also having episodes of difficulty getting to the restroom prior to having a bowel movement, due to the severity of the diarrhea. The patient has now been admitted for further evaluation and treatment. She was also found to have atrial fibrillation with rapid ventricular rate at admission. This is believed to be secondary to dehydration experienced from her copious amounts of diarrhea and nausea and vomiting. PAST MEDICAL HISTORY: 1. Chronic low back pain. 2. Hypertension. 3. High cholesterol. 4. GERD. 5. Coronary artery disease. 6. Insomnia. 7. Triple negative breast cancer, currently receiving chemotherapy with Taxotere and Cytoxan. 8. Neutropenic fever. PAST SURGICAL HISTORY: 1. Coronary stents placed in 2011. 2. Partial hysterectomy in 1969. 3. Tonsillectomy in childhood. SOCIAL HISTORY: Patient is . She lives with her . She is a former smoker but quit smoking back in 2011. She previously smoked 2 packs per day for a total of 40 years. She denies any alcohol or illicit drug use. She also has a supportive family in addition to her . FAMILY HISTORY: Her mother at age 81 of breast cancer. Her father at age 83 from Parkinson disease. The patient also has 3 sisters who have all had breast cancer. She has 2 sisters that are positive for BRAC mutation. Patient also has grown children. REVIEW OF SYSTEMS: Ten point review of systems has been reviewed and is negative except for as per the HPI. PHYSICAL EXAMINATION: Vital Signs: Temperature 98.5 degrees, heart rate 88, respirations 19, blood pressure 112/59, O2 saturation 90% on 2 L nasal cannula. General: female sitting up in hospital bed with her sister at bedside. The patient is in no acute distress. HEENT: Head appears to be normocephalic, atraumatic. Eyes: Pupils equal, round, reactive. Ears, nose, throat, neck, and mouth: Oral mucosa appears to be normal. Trachea is midline. Auditory acuity is intact. Cardiovascular: Rate control at this time. S1-S2. Respiratory: Chest is clear to auscultation bilaterally. Normal respiratory effort. Gastrointestinal: Abdomen is soft and nontender. Positive bowel sounds. Musculoskeletal: No obvious bony abnormalities. Extremities: No clubbing, cyanosis, or edema noted. Neurologic: Patient is alert and oriented. No focal motor deficits noted. LABORATORY DATA/STUDIES: White blood cells 22.28, hemoglobin 9.9, hematocrit 31.2, platelets 361,000. Sodium 137, potassium 4.1, chloride 101, CO2 25, BUN 11, creatinine 0.6, and glucose of 129. Chest x-ray shows no pneumonia. Electrocardiogram shows atrial fibrillation with rapid ventricular rate. ASSESSMENT AND PLAN: 1. Breast cancer. Patient recently received her 2nd cycle of neoadjuvant treatment with Taxotere and Cytoxan on 10/14/2016. Treatment is on hold while her acute issues resolve. 2. Nausea and vomiting. Continue IV antibiotics as needed. 3. Diarrhea. Stool culture and Clostridium difficile have been ordered. Seems appropriate given the extent of the diarrhea. She is also receiving Questran while those tests are currently pending. The patient reports only having 2 episodes of diarrhea today thus far. Continue IV hydration as well. 4. Fever. Patient is on IV antibiotics empirically. Chest x-ray and urinalysis are negative. Blood cultures are currently pending. 5. Leukocytosis. Likely secondary to the Neulasta injection she received on . Blood cultures are currently pending. Continue IV empiric antibiotics. Stool cultures also as per above. 6. Atrial fibrillation with rapid ventricular rate. Rate controlled at this time. She is on a Cardizem drip. Cardiology has been consulted. Further management per Cardiology. The patient is also on Eliquis. 7. Pain. Currently well controlled with hydrocodone p.r.n. Patient also has Tylenol as needed. Thank you for consulting us on Ms. Terrazas. We will continue to follow along and adjust our treatment plan per the patient's hospital course. Dictated by ERNESTO Sanchez for Earnestine Herman MD cc: Earnestine Herman MD I have seen and examined Mrs. Terrazas and I agree with the above A/P. CT A/P to evaluate colitis. Empiric antibiotics for the same. Cultures pending. Medical management of her afib/RVR. Earnestine Herman MD MTDKathryn
[2016-10-19] MEDS ORDERED: LOMOTIL PO PRN (11:49)
[2016-10-19] MEDS ORDERED: BENADRYL PO PRN (11:50)
[2016-10-19] MEDS ORDERED: MORPHINE IV PRN (12:00)
[2016-10-19] MEDS ORDERED: DECADRON PO SCH (12:00)
[2016-10-19] MEDS ORDERED: CYANOCOBALAMIN IM SCH (12:00)
--- NOTE | 2016-10-19 12:16 | PROGRESS NOTE ---
DATE: 10/19/2016 SUBJECTIVE: The patient has no focal complaints except diarrhea and cramping. Problem list includes atrial fibrillation with rapid ventricular response. She has been in sinus rhythm here. The Cardizem drip ended up never being started. She is on p.o. Cardizem at this point [address] Pratt. OBJECTIVE: Vital Signs: Blood pressure 112/59, heart rate of 88, respiratory rate 19, temperature 98.5 degrees 98% on 2 L. Cardiovascular: Regular rate and rhythm. Pulmonary: Bilateral breath sounds. Gastrointestinal: Soft, hyperdynamic bowel sounds. LABORATORY DATA: No new data[place] [address] and CRP of 92. PROBLEM LIST: 1. Atrial fibrillation with rapid ventricular response. She is off her drip. She is on p.o. Cardizem. Cardiology is following. She is on Eliquis. We will continue to monitor. 2. Possible colitis versus drug associated diarrhea. She is on cholestyramine and we will follow. We will add Lomotil. I think all her stool studies have been obtained and are unremarkable. A CT scan has been ordered by GI. They have been consulted. 3. Breast cancer. Dr. Herman aware. She has seen the patient, this morning. We will continue to follow closely. 4. Disposition: Pending rest of her workup. Hopefully home soon in the next 1-2 days. cc: Estrada Chiu MD
[2016-10-19] MEDS: ZANAFLEX PO PRN (12:32)
[2016-10-19] MEDS ORDERED: CARDIZEM PO SCH (13:00)
--- NOTE | 2016-10-19 14:43 | Diag Imaging Result Doc PS360 ---
EXAM: ABDOMEN/PELVIS W/CONTRAST HISTORY: pain, nausea TECHNIQUE: Dose reduction protocol COMPARISON: 09/18/2016 FINDINGS: There is mild fatty infiltration of the liver. No calcified gallstones or adjacent inflammation. Normal spleen, pancreas, and adrenal glands. Normal enhancement of the kidneys. There is a 4.2 cm abdominal aortic aneurysm. This is similar to the prior exam. Moderate atherosclerosis. There continues to be inflammation about the sigmoid colon. There are multiple diverticula in this location. There is a 1.9 cm air bubble along the superior surface which could be in a large diverticulum or could represent a small focal perforation. This is in the same location of diverticulitis on the prior exam although this larger air bubble was not present at that time. No other free air. The urinary bladder is distended and appears normal. The uterus has been removed. Spinal stenosis at L4-5. IMPRESSION: 1.Sigmoid diverticulitis with possible focal perforation. 2.Stable abdominal aortic aneurysm 3.Fatty infiltration of the liver 4.Hysterectomy 5.Spinal stenosis in the lower lumbar spine. 6.A preliminary report was called to the floor. Electronically signed by Gamal Chaudhary 10/19/2016 2:41 PM
--- NOTE | 2016-10-19 16:27 | CONSULTATION ---
DATE OF CONSULTATION: 10/19/2016 REQUESTING PHYSICIAN: Hospitalist Service REASON FOR CONSULTATION: Patient with paroxysmal atrial fibrillation. HISTORY OF PRESENT ILLNESS: Ms. Terrazas is a 75-year-old female who presented to the Emergency Room Department yesterday at about 9:30 p.m. with complaints of nausea , vomiting, and diarrhea that had been going on for the past couple of days. The patient received chemotherapy about 5 days ago and her symptoms started just 3 days or so ago with the aforementioned complaints of diarrhea with multiple liquid stools with some blood noted at the end of each defecation related, according to her, to hemorrhoids. At any rate, the patient was feeling poorly and upon presentation they noted that she was tachycardic and an EKG done on her at 1:00 a.m. today, 10/19/2016, revealed atrial fibrillation with a rapid response. They gave her Cardizem in the E.R. and shortly thereafter her rhythm returned back to normal. Since her stay here at [facility] she has remained in sinus rhythm. She is not having any chest pain. No shortness of breath. She denies having a fever. At this time her main complaint is diffuse crampy abdominal pain, especially in the lower abdomen. PAST MEDICAL HISTORY: Her past history is positive for severe coronary artery disease. She suffered a myocardial infarction in 2011. At that time they attempted to revascularize the circumflex territory. They opened up a marginal branch of the circumflex and also they put a stent in the right coronary artery which had an ostial stenosis. The patient underwent a follow- up heart catheterization in October of 2012 that showed patent marginal branch of the circumflex with occluded terminal circumflex and what appeared to be a patent stent to the right coronary artery although it is difficult to confirm or rule out that there is an ostial stenosis of the right coronary artery. At any rate, the patient has been relatively stable from the cardiac viewpoint until she developed an episode of paroxysmal atrial fibrillation about a month ago coinciding with symptoms similar to the ones that prompted this admission originated by her chemotherapy. She does have a history of hyperlipidemia, hypertension, and she has emphysema. She has been found to have an abdominal aortic aneurysm measuring 4 x 3.[address] scan of the abdomen that was done about a month ago. She follows with the surgical team for that. At any rate, about a month ago she was diagnosed with possible acute diverticulitis and she was supposed to follow up with Dr. Gibson from Gastroenterology. She has been diagnosed with mitral regurgitation and diastolic heart failure in the past. Her history also is positive for a prior hysterectomy and a recent diagnosis of breast cancer metastatic to the right axilla with a positive lymph node there. She has been initiated on chemotherapy or neoadjuvant chemotherapy with the hope that they will be able to perform a mastectomy in the near future. HOME MEDICATIONS: Her home medications at the time of this admission included Benadryl, Compazine, dexamethasone, gabapentin 300 mg twice a day, Sertraline 100 mg daily , aspirin 81 mg daily, apixaban mg twice day, cyanocobalamin 1,000 mcg every 30 days, cholestyramine (Questran) 4 grams twice a day, hydralazine 25 mg three times a day, Diltiazem CD 180 mg daily, hydrocodone acetaminophen every 6 hours, Zofran 8 mg two times a day, metoprolol 50 mg twice a day, Temazepam 30 mg at bedtime, and Pravastatin 80 mg daily. ALLERGIES: Latex, penicillin, and sulfa drugs. REVIEW OF SYSTEMS: She has some mild degree of chronic exertional dyspnea. No recent episode of chest pain or recent syncope. No edema. No deep venous thrombosis. She does have the abdominal crampy pain ever since the bout that she suffered about a month ago. No other positives on multiple review of systems. SOCIAL HISTORY: She is . She has three children. She lives with her . She quit smoking about 4 years ago. She is retired. FAMILY HISTORY: Positive for paroxysmal atrial fibrillation in her mother and sister. No other significant findings. PHYSICAL EXAMINATION: VITAL SIGNS: Today blood pressure is 112/59, temperature 98.5, pulse 88, and respirations 19. GENERAL: She is awake, alert, oriented, and in no distress. HEENT: Unremarkable. CHEST: Diminished breath sounds bilaterally. CARDIOVASCULAR: Heart sounds are regular and rhythmic. No gallop or murmur. ABDOMEN: The abdomen is diffusely tender and distended. Bowel sounds are diminished. There is tenderness to percussion. Some rebound appears to be present. EXTREMITIES: The extremities show very good dorsalis pedis pulses. NEUROLOGICAL: She follows commands and moves all extremities. The patient is really uncomfortable at this time with the abdominal pain. LABORATORY DATA: Blood work reveals a white count of 22,280, hemoglobin 9.9, and hematocrit 31.2. Sedimentation rate is up to 88 mm/hr. C-reactive protein is 92.74. She has acute inflammation. TSH is normal. Albumin is 3.5. Globulin is 3.1. Troponin has been checked 3 times and all were negative. Sodium is 137, potassium 4.1, chloride 101, carbon dioxide 25, BUN 11 , creatinine 0.6, and glucose 129. Magnesium is 1.9. PT and PTT are normal. Urine is normal. Her chest x-ray showed no acute pneumonia. Her EKG initially showed atrial fibrillation however now she is in sinus rhythm. IMPRESSION: 1. Patient suffering an episode of paroxysmal atrial fibrillation coinciding with acute abdominal distress related possibly to diverticulitis, however, the possibility of ischemic bowel or ischemic colitis has to be entertained because the patient has an abdominal aortic aneurysm. Concern for septicemia/sepsis syndrome given marked leukocytosis and elevated CRP ESR. 2. History of severe coronary artery disease with previous myocardial infarction and previous stent to the right coronary artery and circumflex. 3. Stable angina pectoris. 4. Abdominal aortic aneurysm 4 x 3.8 cm. 5. Recurrent abdominal pain. Differential is diverticulitis versus ischemic colitis. 6. History of hypertension and hyperlipidemia. 7. Breast cancer with metastases to the right axilla with ongoing chemotherapy cycle #2 out of 4. RECOMMENDATIONS: From a cardiology viewpoint I would probably continue the initial approach of low dose Diltiazem and low dose beta ginette. I would request a Gastroenterology consultation to assess this patient's abdominal complaint which may represent ischemic bowel versus diverticulitis. We will be around in case of need, however, at this point in time no further intervention appears to be warranted. Please call me if further assistance is needed. cc: Nilson Pratt MD [facility]
[2016-10-19] MEDS ORDERED: LR 1,000 ML IV ONE (17:38)
--- NOTE | 2016-10-19 18:11 | CONSULTATION ---
DATE OF CONSULTATION: 10/19/2016 CONSULTING PHYSICIAN: Dr. Nilson Pratt. REASON FOR CONSULT: Acute abdomen. HISTORY: This is a 75-year-old white female who was currently being treated for breast cancer, and she is receiving chemotherapy. She was admitted to hospital with nausea, vomiting and diarrhea. She has recently received chemotherapy and started having GI symptoms. She had diarrhea until today and her sister was present bedside. She said she had loose bowel movements mixed with mucus, but denied any blood. She has been complaining of some abdominal discomfort, but denied any abdominal pain. She has been nauseated, and has not been able to eat much. She has been weak and lethargic because of her diarrhea and vomiting. She also had a temperature which went up to 102 degrees Fahrenheit. With these complaints, she was admitted to the hospital and is currently being treated. But on examination per Dr. Pratt, she was found to have severe abdominal tenderness and she had rebound tenderness. I was consulted for further management. The patient has received symptomatic treatment for pain and diarrhea and has responded well. She has not had any diarrhea since then, and her abdominal pain has gotten better. PAST MEDICAL HISTORY: Significant for severe coronary artery disease status post ID in 2011. She also carries diagnosis of hypertension, hyperlipidemia, and emphysema. She has abdominal aortic aneurysm and Dr. Blue is following that. She also carries a diagnosis of diverticulitis and has been treated for that. SURGICAL HISTORY: She has a history of hysterectomy, breast cancer, apparently has metastasized. She is currently receiving neoadjuvant chemotherapy. MEDICATION: Prior to hospitalization she has been on Benadryl, Compazine, dexamethasone, gabapentin, Zoloft, aspirin, Eliquis, Questran light, Apresoline, Cardizem CD, cyanocobalamin, hydrocodone, Zofran, Lopressor, Zestril and pravastatin. ALLERGIES: Claims to be allergic to penicillin, sulfa and latex. SOCIAL HISTORY: She is currently living with her sister. She does not smoke. Does not drink. Does not use illicit drugs. FAMILY HISTORY: No history of colon cancer, stomach cancer, pancreatic cancer, kidney disease or colitis in the family. However, the mother had at the age of 81 with breast cancer. REVIEW OF SYSTEMS: As per HPI as above. PHYSICAL EXAMINATION: General: Very pleasant white female. She is lying in bed. She is conscious, alert, does not appear to be any distress. Vital Signs: Temperature 97.6 degrees, pulse was 74, breathing 22, blood pressure 89/47. She weighs 176 pounds. HEENT: She has got alopecia from chemotherapy. Otherwise eyes, conjunctivae atraumatic and normocephalic. Eyes: Conjunctivae is normal. Sclerae anicteric. Nares are patent. No discharge. Mouth: Buccal mucosa is moist. Throat is normal. Neck: Supple. No lymphadenopathy or thyromegaly. Chest: Clear to auscultate. Heart: Audible, no murmur. Abdomen: Full, soft. It is nontender now. No mass or visceromegaly noted. No ascites noted. Bowel sounds are audible. Extremities: No pedal edema noted. LABORATORY: Reviewed which showed WBC of 22.28, hemoglobin 9.9, hematocrit 31.2, MCV 85.7, platelets 361,000. Sedimentation rate was 88, PT 10.8, INR 1.03. PTT is 228. Sodium 137, potassium 4.1, chloride 101, bicarb 25, BUN is 11, creatinine 0.6. Glucose 129, AST 11, ALT 6, albumin 3.5, total protein 6.6. IMAGING: CT scan of the abdomen done today showed evidence of sigmoid diverticulitis with possible microperforation. Also, aortic aneurysm was seen. IMPRESSION: This is a 75-year-old white female with a metastatic cancer of the breast who has presented with nausea, vomiting, and diarrhea. She has been in the process of getting neoadjuvant chemotherapy. Her white count is elevated and CT scan shows evidence of diverticulitis and possible microperforation. In the morning when Dr. Pratt had examined her she appears to have had evidence of acute abdomen which has improved, most likely from medication she has been receiving, pain medicine. Her bowel sounds are audible now and abdomen is soft. She is currently on Flagyl and Levaquin. I would continue the same and continue to follow her clinically as well as with laboratory, and depending on her progress, further plans made. In the meantime, I will consult Dr. Blue who has been following her aneurysm and has been following her bright breast cancer as well. I will keep him on the case in case she needs surgical intervention, which I doubt she needs it now. Dr. Arthur will be available tomorrow to pickle maker the case. cc: Isrrael Lei MD
--- NOTE | 2016-10-19 18:22 | CONSULTATION ---
DATE OF CONSULTATION: 10/19/2016 REQUESTING PHYSICIAN: Isrrael Lei MD REASON FOR CONSULTATION: Concerning perforated diverticulitis. HISTORY OF PRESENT ILLNESS: A 75-year-old female, well known to me, who I have been following for breast cancer. She has been actively being treated by Dr. Earnestine Herman for breast cancer and being treated with neoadjuvant chemotherapy. She apparently had an issue with abdominal pain and nausea, vomiting and was admitted with a diagnosis of diverticulitis. CT scan showed that she had a small microperforation. She still reports some abdominal pain, although it is somewhat improved with her pain medicine. She describes the pain as sharp and being in the bilateral lower quadrant. She describes more intensity in the right lower quadrant. She is having profuse watery diarrhea. Her last treatment for chemotherapy was approximately a week ago. She did get Neulasta at that time, also. She developed a fever and leukocytosis and has been admitted to the hospitalist service for concern of a possible infection, I was asked to evaluate the patient for an opinion. PAST MEDICAL HISTORY: 1. Right-sided breast cancer. 2. Abdominal aortic aneurysm. 3. Hypercholesterolemia. 4. Hypertension. 5. History of myocardial infarction. PAST SURGICAL HISTORY: 1. Previous biopsies of breast. 2. Port placement. 3. Cataract surgery. 4. Hysterectomy. MEDICATIONS: Reviewed. Of note, patient is on Eliquis. She has been started on IV antibiotics. ALLERGIES: Oxycodone, penicillin and sulfa. FAMILY HISTORY: Arthritis, asthma, breast cancer, diabetes. SOCIAL HISTORY: Denies alcohol, tobacco or illicit drugs. REVIEW OF SYSTEMS: A full 10 point review of systems obtained, negative except as specified in HPI. PHYSICAL EXAMINATION: Vital Signs: Patient is currently afebrile. Temperature 97.6 degrees, pulse is regular at 74, respiratory rate nonlabored at 22, blood pressure 90 systolic. O2 saturation 97% on 2 L nasal cannula. General: No acute distress, but appears uncomfortable, female, looks stated age. HEENT: Normocephalic, atraumatic. Pupils equal, round, react to light. Mucous membranes moist. Oropharynx benign. Neck: Supple. Trachea midline. Cardiovascular: Regular rate and rhythm at this time. Lungs: Grossly clear. Abdomen: Soft, nondistended. Some tenderness to palpation in the bilateral lower quadrants. I do not give her peritonitis at this time. Extremities: Moves all extremities. Neurologic: Grossly intact. Skin: No signs of jaundice. Her port in the right chest wall appears to be functioning well. Vascular: All extremities perfused. LABORATORY: From yesterday reviewed. Of note, white blood cell count that time was 22, platelet count 361,000. Remainder of labs reviewed. IMAGING: CT scan independently reviewed and radiology report reviewed. ASSESSMENT AND PLAN: A 75-year-old female with multiple medical comorbidities, now with diverticulitis. 1. History of breast cancer. At this time, she is status post her 2nd treatment of neoadjuvant therapy. Dr. Earnestine Herman has been consulted. We will need to monitor her closely. 2. Abdominal aortic aneurysm. At this time, she has had a repeat CT scan that shows it is essentially being stable of 4.2 cm. We will need to continue to watch it. 3. Multiple medical comorbidities, including and the new onset atrial fibrillation with rapid ventricular response. At this time, it has been rate controlled and she is now in atrial fibrillation. Cardiology has been consulted and will continue to monitor. 4. Potential perforated diverticulitis. At this time, patient is on Levaquin and I have added Flagyl to get anaerobic coverage. Ideally given everything she has going on, in addition to patient being on Eliquis, I would like to monitor her closely and continue with this nonoperative management. We will need to watch her closely. Surgical intervention would be high risk given all her comorbidities and her recent chemotherapy treatment. This would hinder healing significantly, but again, I will monitor her closely. I appreciate the consult. I will continue to follow with you. cc: Maxi Blue MD
[2016-10-19] MEDS: RESTORIL PO SCH (21:34)
[2016-10-19] MEDS: FLAGYL PO SCH (21:34)
[2016-10-19] MEDS: NEURONTIN PO SCH (21:34)
[2016-10-19] MEDS: CARDIZEM PO SCH (21:35)
[2016-10-20] MEDS: LEVAQUIN 500 MG/D5W 500 MG/100 ML IVPB IV SCH (02:51)
[2016-10-20] MEDS: LOPRESSOR PO SCH ×4 (02:53→20:09)
[2016-10-20] MEDS: NORCO-7.5 PO PRN ×3 (03:02→15:18)
[2016-10-20 05:23] LABS: AGAP 8; ALBUMIN 2.7 g/dL (3.5-5.0); ALKALINE PHOSPHATASE 146 U/L (32-104); BASO% 0.9 % (0.0-0.8); BUN 6 mg/dL (8-22); CALCIUM 8.2 mg/dL (8.8-10.2); CHLORIDE 106 mmol/L (98-107); COSMO 277; EOS# 0.72 X1000 (0.0-0.7); EOS% 7.3 % (0.0-10.0); GOT 9 U/L (10-30); GPT < 5 U/L (10-36); HEMATOCRIT 24.4 % (37.0-47.0); HEMOGLOBIN 7.6 g/dL (12.0-16.0); IMM GRAN# 0.02 X1000 (0.0-0.04); IMM GRAN% 0.2 % (0.0-0.5); LYMPH# 0.85 X1000 (1.2-3.4); LYMPH% 8.6 % (20.5-51.1); MANUAL DIFF NEEDED? YES; MCH 27.1 PG (27-31); MCHC 31.1 g/dL (33-37); MCV 87.1 FL (81-99); MONO# 0.61 X1000 (0.11-0.59); MONO% 6.1 % (1.7-9.3); MPV 9.1 FL (7.4-10.4); NEUT% 76.9 % (42.2-75.2); PLT 290 X1000 (130-400); SODIUM 140 mmol/L (136-145); TCO2 26 mmol/L (25-35); TOTAL BILIRUBIN 0.22 mg/dL (0.20-1.00); TOTAL PROTEIN 5.6 g/dL (6.3-8.3)
--- NOTE | 2016-10-20 06:54 | EKG Report ---
Test Performed on : 10/20/2016 06:05:56 AM Test Reason : atrial fibrillation Blood Pressure : / mmHG Vent. Rate : 076 BPM Atrial Rate : 076 BPM P-R Int : 156 ms QRS Dur : 098 ms QT Int : 414 ms P-R-T Axes : 057 023 057 degrees QTc Int : 465 ms Normal sinus rhythm. Normal ECG When compared with ECG of 19-OCT-2016 01:01, Sinus rhythm. has replaced Atrial fibrillation. Vent. rate has decreased BY 61 BPM Non-specific change in ST segment in Lateral leads Nonspecific T wave abnormality no longer evident in Lateral leads Confirmed by Rahel Gordon MD ([id number]) on 10/20/2016 8:21:26 AM
[2016-10-20 07:24] LABS: BANDS 2 % (0-1); EOS 8 % (1-10); LYMPHS 10 % (21-51); MONO 2 % (1-9)
--- NOTE | 2016-10-20 08:10 | PROGRESS NOTE ---
DATE: 10/20/2016 SUBJECTIVE: The patient states she is feeling better. The family reports she is doing better overall. OBJECTIVE: Vital Signs: The patient is currently afebrile. Her vital signs are stable. General: No acute distress. Cardiovascular: Regular rate and rhythm. Lungs: Some coarse sounds noted. Abdomen: Soft, nondistended. Less tender to palpation in the bilateral lower quadrants. No peritoneal signs at this time. LABORATORY DATA: Reviewed. White blood cell count is 9, hematocrit 24, platelet count 290,000. Remainder of labs reviewed. ASSESSMENT AND PLAN: A 75-year-old female with multiple medical comorbidities, including breast cancer and currently undergoing treatment, now with possible perforated diverticulitis. 1. Multiple medical comorbidities including breast cancer. At this time, we will continue the current treatment. We will continue to monitor. She has multiple consultants following her for her medical issues. 2. Perforated sigmoid diverticulitis. At this time, the patient is clinically doing well. We will keep her on Levaquin and Flagyl and monitor her closely. Hopefully, we can avoid a surgical intervention. cc: Maxi Blue MD
[2016-10-20] MEDS ORDERED: FLAGYL PO SCH (09:00)
[2016-10-20] MEDS: ZOLOFT PO SCH (09:37)
[2016-10-20] MEDS: ELIQUIS PO SCH ×2 (09:37→20:09)
[2016-10-20] MEDS: PRAVACHOL PO SCH (09:37)
[2016-10-20] MEDS: ASPIRIN PO SCH (09:37)
[2016-10-20] MEDS: NEURONTIN PO SCH ×2 (09:37→20:09)
[2016-10-20] MEDS: FLAGYL PO SCH ×3 (09:37→20:09)
[2016-10-20] MEDS: CARDIZEM PO SCH ×3 (09:37→20:09)
[2016-10-20] MEDS: QUESTRAN LIGHT PO SCH ×2 (11:05→23:21)
--- NOTE | 2016-10-20 11:46 | PROGRESS NOTE ---
DATE: 10/20/2016 SUBJECTIVE: Patient reports that today she had just 1 bowel movement and yesterday she had at least 5 or 6. She denies any fever, chills, abdominal pain. She denies any sensation of palpitation or chest pain. OBJECTIVE: Vital Signs: Temperature 98.6 degrees, heart rate 76, respiratory rate 21, blood pressure 120/60, O2 saturation 98% on 2 L nasal cannula. General Examination: This is a chronically ill-looking and frail 75-year-old female, looking older than her age, lying in bed, in no acute distress. HEENT: Head is normocephalic, atraumatic. Anicteric sclerae and pale conjunctivae. Mucous membranes moist. Neck: Supple. No JVD noted. No carotid bruits. No lymphadenopathy. No thyromegaly. Cardiovascular: S1, S2 heard. No murmurs, gallops, or rubs. Regular rate and rhythm. Respiratory: Clear bilaterally to auscultation. No work of breathing or using accessory muscles. Abdomen: Soft, nontender to palpation. A little bit distended. Hyperdynamic bowel sounds. No signs of peritoneal irritation. Extremities: No clubbing, cyanosis or edema. Peripheral pulses present in both legs. Neurological: Patient alert oriented x3. Able to move 4 extremities. Cranial nerves 2-12 grossly normal. LABORATORY DATA: White cell count 9.92, hemoglobin 7.6, hematocrit 24.4, platelets 290,000. BMP unremarkable except calcium a little bit low at 8.2. ASSESSMENT AND PLAN: 1. Paroxysmal atrial fibrillation with rapid ventricular response. By now she is not on any Cardizem drip since yesterday. The patient is on Cardizem. Cardiology has been seeing this patient. They signed off. Currently she is on Eliquis. Will continue with same management. 2. Sigmoid diverticulitis. At this point, the patient is doing fine and with Levaquin and Flagyl that she is receiving bowel movements are now 1 per day. At this point, we are going to continue with the same management. The patient is not developing any fever any more. Initially we suspected C. difficile colitis but the exam is negative. 3. Breast cancer. Dr. Herman is aware of this patient. 4. Coronary artery disease. By now, the patient is stable, not complaining of any chest pain. We are going to continue with her usual medications. 5. Hypertension. Blood pressure is definitely is much better today with blood pressure in the range of 100s and 120s. 6. Hyperlipidemia. We will continue with Pravachol. 7. Physical deconditioning secondary to current medical comorbidities and breast cancer. We are going to consult physical therapy. cc: Shine Garay MD
--- NOTE | 2016-10-20 16:42 | PROGRESS NOTE ---
DATE: 10/20/2016 SUBJECTIVE: Ms. Terrazas reports that she is feeling better today. She reports only having 1 bout of diarrhea this morning. OBJECTIVE: Vital Signs: Temperature 98.6 degrees, heart rate 76, respirations 21, blood pressure 120/60, O2 saturation 98% on 2 L nasal cannula. Laboratory: White blood cells 9.92, hemoglobin 7.6, hematocrit 24.4, platelets 290,000. Sodium 140, potassium 4.0, chloride 106, CO2 26, BUN 6, creatinine 0.6, glucose 99. PHYSICAL EXAMINATION: CV: Regular rate and rhythm. S1, S2 heard. Respiratory : Chest is clear to auscultation bilaterally. Normal respiratory effort. Gastrointestinal: Abdomen is nondistended. Maybe some mild tenderness throughout. No rebound or guarding noted. Positive bowel sounds. Musculoskeletal: Trace edema noted. ASSESSMENT AND PLAN: 1. Breast cancer. The patient is status post her 2nd treatment cycle back on . Treatment on hold. 2. Nausea and vomiting. Continue IV antiemetics. 3. Diarrhea. Stool cultures and C. difficile have been negative. Her diarrhea has improved. CT of the abdomen and pelvis revealed the patient has diverticulitis. She is now on IV Levaquin and Flagyl and her symptoms have improved. She has been evaluated by both GI and surgery. CT scan indicated possible perforation but no plans for any surgical intervention per general surgery. 4. Fever. Continue IV antibiotics. 5. Leukocytosis. Improving. Believed to be secondary to Neulasta injection and diverticulitis. 6. Atrial fibrillation with rapid ventricular rate. Regular rate and rhythm at this time. Continue to be monitored by cardiology. 7. Pain. Currently well controlled. Dictated by ERNESTO Sanchez for Earnestine Herman MD cc: Earnestine Herman MD I have seen and examined Ms. Terrazas and agree with the above A/P. Monitor abdominal exam closely. Earnestine Herman MD [facility] FACILITYKathryn
[2016-10-20] MEDS ORDERED: MUCINEX DM PO ONE (17:57)
[2016-10-20] MEDS: RESTORIL PO SCH (20:09)
--- NOTE | 2016-10-20 20:16 | Extremity Venous Study ---
PROCEDURE NAME: Venous U/S Bilateral Legs - 10/19/2016 TEST: Bilateral lower extremity venous imaging study. REASON FOR EVALUATION: The patient has shortness of breath, atrial fibrillation, leg pain and edema. DETAILS: Bilateral lower extremity venous images accomplished. The common femoral, superficial femoral, deep femoral, popliteal, posterior tibial, peroneal, and greater saphenous veins are imaged bilaterally. Doppler is used to evaluate the veins for spontaneity, phasicity, respiratory excursion, and distal augmentation. All veins are compressible. No intraluminal clot is seen. Reflux noted in the right common femoral, superficial femoral, popliteal veins, the left common femoral, superficial femoral, popliteal veins and left greater saphenous vein. INTERPRETATION: No evidence of deep or superficial venous thrombosis in either lower extremity veins identified. Reflux is pronounced at the common femoral, superficial femoral, popliteal veins bilaterally as well as the left greater saphenous vein. cc: MD Desirae Almeida MD
[2016-10-21] MEDS: LEVAQUIN 500 MG/D5W 500 MG/100 ML IVPB IV SCH (02:12)
[2016-10-21] MEDS: LOPRESSOR PO SCH ×4 (02:12→20:04)
[2016-10-21] MEDS: ZANAFLEX PO PRN (04:46)
[2016-10-21] MEDS: MORPHINE IV PRN ×3 (04:56→19:17)
[2016-10-21] MEDS ORDERED: MUCINEX DM PO PRN (06:00)
--- NOTE | 2016-10-21 06:07 | PROGRESS NOTE ---
DATE: 10/21/2016 SUBJECTIVE: Patient doing well. No major issues. Reports her pain is doing better. OBJECTIVE: Vital Signs: Patient is currently afebrile. T-max of 99.9. Her vital signs have been stable. She is currently in normal sinus rhythm. General Examination: No acute distress. Cardiovascular: Regular rate and rhythm. Lungs: Grossly clear. Abdomen: Soft, nondistended. Only minimal bilateral lower quadrant tenderness at this time which has improved since the 1st day I saw her. Laboratory: None this morning as of yet. ASSESSMENT/PLAN: A 75-year-old, female with multiple medical comorbidities including breast cancer, currently undergoing treatment, now with possible perforated diverticulitis. 1. Multiple medical comorbidities including breast cancer. At this time, we will continue current treatment. We will continue to monitor. 2. Perforated sigmoid diverticulitis. At this time, patient is clinically doing well. We will keep her on Levaquin and Flagyl, and closely monitor her. We may need to consider a repeat CT scan in the next 24 hours to see if any abscess has developed. cc: Maxi Blue MD
[2016-10-21] MEDS: ASPIRIN PO SCH (08:47)
[2016-10-21] MEDS: PRAVACHOL PO SCH (08:48)
[2016-10-21] MEDS: NORCO-7.5 PO PRN ×3 (08:48→22:35)
[2016-10-21] MEDS: ZOLOFT PO SCH (08:48)
[2016-10-21] MEDS: ELIQUIS PO SCH ×2 (08:48→20:03)
[2016-10-21] MEDS: NEURONTIN PO SCH ×2 (08:49→20:04)
[2016-10-21] MEDS: CARDIZEM PO SCH ×3 (08:49→20:03)
[2016-10-21] MEDS: FLAGYL PO SCH ×3 (08:49→20:04)
--- NOTE | 2016-10-21 09:10 | PROGRESS NOTE ---
DATE: 10/21/2016 SUBJECTIVE: The patient reports feeling better, no more diarrhea, no fever, no chills. As per family who is at bedside, the patient is able to walk around. No chest pain, no palpitations noted. OBJECTIVE: Vital signs: Temperature 98.0, heart rate 72, respiratory rate 14, blood pressure 103/57, O2 sat 100% on 2 L nasal cannula. General: This is a chronically ill-looking and frail 75-year-old female lying in bed in no acute distress. HEENT: Head is normocephalic and atraumatic. Anicteric sclerae. Pale conjunctivae. Mucous membranes moist. Neck: Supple, no JVD noted, no carotid bruits, no lymphadenopathy, no thyromegaly. Cardiovascular: S1, S2 heard, no murmurs, gallops, or rubs, and regular rate and rhythm. Respiratory: Clear bilaterally to auscultation. No work of breathing or use of accessory muscles. Abdomen: Soft, nontender to palpation. Bowel sounds present. A little bit distended. Hyperdynamic bowel sounds, no signs of peritoneal irritation. Extremities: No clubbing, cyanosis, or edema. Peripheral pulses present in both legs. Neurological: Patient is alert and oriented x3, moves four extremities. LABORATORY DATA: None. ASSESSMENT AND PLAN: 1. Paroxysmal atrial fibrillation with rapid ventricular response. That condition is completely resolved. The patient is currently on Cardizem 30 mg p.o. q.8 h. That can be switched to Cardizem CD upon discharge. 2. Sigmoid diverticulitis. Currently, the patient is on Levaquin and Flagyl, and clinically she is doing fine, no more diarrhea. Because also on the CT report it was reported some free air, General Surgery was consulted who is following this patient, but as of now, they are not planning to do any surgical management. They recommend to do a CT of the abdomen and pelvis tomorrow to make sure she has not developed any abscess. Because I think this patient clinically is doing good, and that CT did not show any abscess, the patient can be discharged tomorrow. 3. Breast cancer. Hematology/oncology, Dr. Herman, following this patient. 4. Coronary artery disease, stable. The patient is not complaining of any chest pain. 5. Hypertension. Blood pressure is definitely well controlled. 6. Hyperlipidemia. Will continue with Pravachol. 7. Physical deconditioning. Physical Therapy thinks this patient is doing good, so when she is ready to leave the hospital, she can be discharged home. cc: Shine Garay MD
[2016-10-21] MEDS ORDERED: BLISTEX MEDICATED BERRY LIP BALM TOP PRN (10:04)
[2016-10-21] MEDS: QUESTRAN LIGHT PO SCH ×2 (11:17→22:35)
--- NOTE | 2016-10-21 18:38 | PROGRESS NOTE ---
DATE: 10/21/2016 SUBJECTIVE: The patient states she feels better today. She denies abdominal pain, nausea, vomiting, fever, chills, and diarrhea. OBJECTIVE: Remarkable for hemoglobin of 136/63, pulse 78, respirations 12, temp of 97.9 degrees. The patient is eating her dinner and therefore her physical examination was deferred. OBJECTIVE DATA: Reveals labs from 10/20/2016. Her hemoglobin was 7.6 with hematocrit of 24.4, and white count of 9.92. She had 290,000 platelets. Sodium is 140, potassium 4.0, chloride 106, CO2 26, BUN 6, creatinine 0.6 with a glucose of 99. Calcium is 8.2, total bilirubin is 0.22, AST 9, ALT less than 5, alkaline phosphatase 146, total protein 5.6, albumin 2.7. IMPRESSION: 1. Acute diverticulitis. 2. Microperforations. 3. Progressive anemia. RECOMMENDATIONS: 1. After discussion with Dr. Blue, we will continue watchful waiting. 2. Dr. Blue plans to recheck an abdominopelvic CT tomorrow. Additional recommendations will be based on the results of the CT scan. 3. The patient will need outpatient colonoscopy once she recovers from the microperforations. The time will be based on her clinical progress. 4. Please recheck her hemoglobin and hematocrit, and transfuse as indicated. 5. Additional recommendations to follow based on her clinical course. cc: MD Sanket Monterroso MD Matthew L. Figh, MD
[2016-10-21] MEDS: RESTORIL PO SCH (20:04)
[2016-10-22] MEDS: NORCO-7.5 PO PRN (03:05)
[2016-10-22] MEDS: LEVAQUIN 500 MG/D5W 500 MG/100 ML IVPB IV SCH (03:05)
[2016-10-22] MEDS: LOPRESSOR PO SCH ×3 (03:06→14:13)
[2016-10-22 05:34] LABS: BASO% 0.9 % (0.0-0.8); EOS# 0.38 X1000 (0.0-0.7); EOS% 5.7 % (0.0-10.0); HEMATOCRIT 26.2 % (37.0-47.0); HEMOGLOBIN 8.1 g/dL (12.0-16.0); IMM GRAN# 0.79 X1000 (0.0-0.04); IMM GRAN% 11.9 % (0.0-0.5); LYMPH# 0.72 X1000 (1.2-3.4); LYMPH% 10.9 % (20.5-51.1); MANUAL DIFF NEEDED? YES; MCH 27.2 PG (27-31); MCHC 30.9 g/dL (33-37); MCV 87.9 FL (81-99); MONO# 1.29 X1000 (0.11-0.59); MONO% 19.5 % (1.7-9.3); MPV 8.7 FL (7.4-10.4); NEUT% 51.1 % (42.2-75.2); PLT 355 X1000 (130-400); RBC 2.98 XMIL (4.2-5.4)
[2016-10-22 06:02] LABS: AGAP 7; BUN 2 mg/dL (8-22); CALCIUM 8.2 mg/dL (8.8-10.2); CHLORIDE 106 mmol/L (98-107); COSMO 282; POTASSIUM 3.2 mmol/L (3.5-5.1); SODIUM 143 mmol/L (136-145); TCO2 30 mmol/L (25-35)
--- NOTE | 2016-10-22 06:19 | PROGRESS NOTE ---
DATE: 10/22/2016 SUBJECTIVE: The patient is doing well. She is a little anxious about the CT scan, but reports that she is feeling better. OBJECTIVE: Vital Signs: The patient is currently afebrile. Her vital signs are stable. General: No acute distress. Cardiovascular: Regular rate and rhythm. Lungs: Grossly clear. Abdomen: Soft, nondistended. Decreased tenderness to palpation since admission. LABORATORY DATA: White blood cell count today is 6, hematocrit is 26, platelet count 355,000. ASSESSMENT AND PLAN: A 75-year-old female with multiple medical comorbidities, including breast cancer, currently undergoing treatment for breast cancer, now with possible perforated diverticulitis. 1. Multiple medical comorbidities. At this time, we will continue the current treatment. We will continue to monitor. 2. Perforated sigmoid diverticulitis. At this time, the patient is doing well. She is on antibiotics. We will repeat her CT scan today to see if there is any kind of abscess. cc: Maxi Blue MD
[2016-10-22 07:12] LABS: BANDS 12 % (0-1); EOS 6 % (1-10); HYPOCHROM 1+; LYMPHS 20 % (21-51); MONO 6 % (1-9)
[2016-10-22] MEDS: MORPHINE IV PRN ×2 (07:21→12:01)
[2016-10-22] MEDS ORDERED: KLOR-CON PO ONE (07:34)
[2016-10-22] MEDS ORDERED: ATIVAN IV ONE (07:39)
[2016-10-22] MEDS ORDERED: ATIVAN ONE (07:44)
--- NOTE | 2016-10-22 08:56 | Diag Imaging Result Doc PS360 ---
EXAM: ABDOMEN/PELVIS W/WO CONTRAST HISTORY: suspected sigmoid abscess TECHNIQUE: COMPARISON: 10/19/2016 FINDINGS: Without images: No renal stones. No hydronephrosis. No change in the 4.3 cm abdominal aortic aneurysm. Postcontrast images performed. There is prominent fatty infiltration of the liver. No calcified gallstones or adjacent inflammation. Normal spleen, pancreas, and adrenal glands. No solid renal masses. No bowel obstruction. Normal appendix. Air-filled cavity along the superior surface of the sigmoid colon is fairly similar to that of the prior exam. There are mild inflammatory changes about the sigmoid colon. The urinary bladder is distended and appears normal. Uterus has been removed. IMPRESSION: No interval improvement in the sigmoid diverticulitis with what appears to be a small confined focal perforation. Electronically signed by Gamal Chaudhary 10/22/2016 8:54 AM
[2016-10-22] MEDS: CARDIZEM PO SCH ×2 (09:56→14:13)
[2016-10-22] MEDS: PRAVACHOL PO SCH (09:56)
[2016-10-22] MEDS: FLAGYL PO SCH ×2 (09:56→14:14)
[2016-10-22] MEDS: ZOLOFT PO SCH (09:56)
[2016-10-22] MEDS: NEURONTIN PO SCH (09:56)
[2016-10-22] MEDS: ASPIRIN PO SCH (09:56)
[2016-10-22] MEDS: ELIQUIS PO SCH (09:56)
[2016-10-22 11:59] VITALS: BP 136/64
[2016-10-22] MEDS: QUESTRAN LIGHT PO SCH (12:01)
--- NOTE | 2016-10-22 14:07 | PROGRESS NOTE ---
DATE: 10/22/2016 SUBJECTIVE: Ms. Terrazas reports that she is feeling well. OBJECTIVE: Vital Signs: Temperature 98 degrees, heart rate 79, respirations 20 , blood pressure 157/82, O2 saturation is 100% on 2 L nasal cannula. LABORATORY: White blood cells 6.62, hemoglobin 8.1, hematocrit 26.2, platelets 355,000. Sodium 143, potassium 3.2, chloride 106, CO2 30, BUN 2, creatinine 0.6, glucose 114. PHYSICAL EXAM: General: The patient is lying in hospital comfortable in no acute distress. Extremities: Some trace bilateral extremity edema. ASSESSMENT AND PLAN: 1. Breast cancer. Patient can follow up with us as an outpatient. Treatment on hold currently. 2. Diverticulitis with local perforation. Patient has been evaluated by Surgery. No surgical intervention planned at this time. Also no evidence of abscess on repeat CT of the abdomen. Symptoms are improved. 3. Diarrhea, nausea and vomiting likely secondary to #2. Patient's symptoms are better. 4. Leukocytosis. Improved. DISPOSITION: The patient may possibly go home today or tomorrow. We are in agreement if okay with the primary team and other consultants that the patient may go home whenever they feel she is ready. Patient can again follow up with us as an outpatient. We will sign off at this time. Dictated by ERNESTO Sanchez for Earnestine Herman MD cc: Earnestine Herman MD I have seen and examined the patient and agree with the above A/P. Earnestine HERNDON
[2016-10-22] MEDS ORDERED: HEPARIN INJ ONE (16:02)
--- NOTE | 2016-10-23 16:25 | DISCHARGE SUMMARY ---
ADMISSION DATE: 10/19/2016 DISCHARGE DATE: 10/22/2016 ADMISSION DIAGNOSES: 1. Atrial fibrillation with rapid ventricular rate due to possible dehydration or possible pulmonary emboli. 2. Leukocytosis likely from GSF shot. 3. Persistent diarrhea. 4. Coronary artery disease. 5. Hypertension. 6. History of breast cancer. 7. Hyperlipidemia. DISCHARGE DIAGNOSES: 1. Paroxysmal atrial fibrillation with RVR, completely resolved, currently on 30 mg of p.o. Cardizem every 8 hours. That condition has completely resolved. She has been placed on Cardizem CD. 2. Sigmoid diverticulitis. Diarrhea has resolved, and was continued on Levaquin and Flagyl upon discharge. 3. Fee air on CT. General Surgery followed the patient but there was no surgical management. 4. Breast cancer. Dr. Herman followed. 5. Coronary artery disease. Stable. 6. Hypertension. Well controlled. 7. Hyperlipidemia. Continue Pravachol. 8. Physical deconditioning. She received physical therapy during her stay. CONSULTATIONS: Dr. Josselin Gibson for diverticulitis. Dr. Maxi Blue for possible free air on CT. Dr. Pratt for coronary artery disease history. Dr. Earnestine Herman for breast cancer management. PROCEDURES OR SURGERIES: None. HOSPITAL COURSE: Ms. Lety Terrazas is a 76-year-old female who is admitted with complaints of fever, nausea, vomiting, and diarrhea on October. She also had some confusion upon admit. Her last chemotherapy was on 10/14/2016 for her breast cancer. She was doing well until 3 days prior to admission when she had recurrent nausea, vomiting, and diarrhea of around 10 times per day. She denied blood in the stool, but upon wiping herself did notice blood. She had complaints of intermittent abdominal pains with her diarrhea. She had spiked a 102 fever, subjective fever, prior to admission. She did have some complaints of shortness of breath but no palpitations. She presented with a white blood cell count of 22,000, and a fever of 99.8. A part of her workup included an abdominal pelvic CT which revealed sigmoid diverticulitis with possible focal perforation. This was the reason that Dr. Maxi Blue had been consulted. There was no reason for surgery during her stay. She did not receive surgery. They considered surgical intervention being high-risk given all her comorbidities and her right recent chemotherapy treatment. Dr. Lei also was following the patient. He saw her on day of admission. She was continued on Levaquin and Flagyl. On admit and she was found to be in atrial fibrillation with RVR rate of 137 per EKG. It is questionable whether it is from dehydration or pulmonary thromboembolism but lower extremity venous ultrasound was negative for any pulmonary emboli, and the extremity venous ultrasound was negative for any DVT. Does not appear that there was a CTA of the chest to rule out pulmonary emboli. For her atrial fibrillation with RVR Dr. Pratt was consulted. She was given IV Cardizem push with digoxin and started on a Cardizem drip. She was transferred to CICU and was continued on Eliquis. Her leukocytosis was secondary to her diverticulitis found on CT. Her persistent diarrhea improved once she was started on Levaquin and Flagyl. Stool samples were all negative. Stool samples negative for blood. She had blood cultures drawn which were also negative, and she had a negative urinalysis. She had a low-grade fever on admit but improved after antibiotic therapy was initiated. She converted to normal sinus rhythm between 03:48 and 07:44 on 19 of October. She maintained a heart rate between 70s and 80s. She was then changed from IV Cardizem to oral Cardizem, and a low-dose beta ginette was also added. She once again had a repeat abdominal pelvic CT on 10/22/2016 to follow up on the possible bowel perforation, and it showed that there was no improvement in the sigmoid diverticulitis with what appears to be a small confined focal perforation. On 10/22/2006 Dr. Blue noted that due to the perforated sigmoid diverticulitis, as the patient was doing well and was on antibiotics, he repeated the CT scan to see if there was any kind of abscess and there was not. Dr. Gibson with Gastroenterology reports that the patient needs to be seen as outpatient for colonoscopy once she recovers from the micro perforations. Dr. Herman who was following her breast cancer just wants to follow up with her as outpatient. Vital signs were stable upon discharge. Labs were stable upon discharge. She never received blood for her anemia. And patient was discharged home. DISCHARGE VITAL SIGNS: Temperature 98.0 degrees, heart rate 83, respiratory rate 20, blood pressure 156/68, O2 saturation 97% on room air. DISCHARGE LABORATORY DATA: White blood cells 6000, hemoglobin 8.1, hematocrit 26.2, platelet count 355,000. Sodium 143, potassium 3.2, BUN 2, creatinine 0.6, glucose 114, calcium 8.2. IMAGING: During her stay on 10/18/2016, had a chest x-ray, no pneumonia. On , had an extremity venous study, no evidence of deep or superficial venous thrombosis in either lower extremity veins identified. Reflux is pronounced at the common femoral, superficial femoral, popliteal veins bilaterally as well as the left greater saphenous vein. On 07/2016, abdominal pelvic CT showed sigmoid diverticulitis with possible focal perforation, stable abdominal aortic aneurysm, fatty infiltration of the liver, hysterectomy, spinal stenosis of the lower lumbar spine. On 10/22/2016, abdominal pelvic CT was repeated. It showed no interval improvement in the sigmoid diverticulitis with what appears to be a small confined focal perforation. No mention of abscess. EKG on 10/19/2016 showed atrial fibrillation with RVR, rate 137. On 10/20/2016, EKG showed normal sinus rhythm, rate 76, QTc is 465. DISCHARGE DIET: Diverticulitis/diverticulosis type diet. No seeds, no corn, no popcorn. DISCHARGE TIME: 38 minutes DISCHARGE DISPOSITION: Home. FOLLOW-UP CONSULTATIONS: Dr. Nathan Lara, Dr. Josselin Gibson, Dr. Earnestine Herman. DISCHARGE INSTRUCTIONS: Continue antibiotics as ordered and please follow up with physician. If abdominal pain, nausea, vomiting, diarrhea, return, please seek medical advice. Dictated by TESSA Flores for Shine Garay MD cc: TESSA Flores MD Stephen A. Branning, MD Jeanette Keith, MD Heather Shah, MD Luis N. Villanueva, MD Matthew L. Figh, MD MTDD
--- NOTE | 2016-10-25 03:49 | DISCHARGE SUMMARY ---
ADMISSION DATE: 10/19/2016 DISCHARGE DATE: 10/22/2016 ADDENDUM HOME MEDICATIONS: Aspirin 81 mg p.o. daily. Eliquis 5 mg p.o. twice daily. Cyanocobalamin 1000 mcg intramuscular once every 30 days. Cholestyramine/aspartame 4 g p.o. twice daily. Apresoline 25 mg p.o. 3 times daily. Hydrocodone acetaminophen 7.5-325 one tab p.o. q.6 hours p.r.n. Zofran 8 mg p.o. t.i.d. p.r.n. Toprol-XL 100 mg p.o. daily. Diltiazem CD 120 mg p.o. daily. Flagyl 500 mg p.o. t.i.d. Levaquin 750 mg p.o. daily. Benadryl 25 mg p.o. q.4 hours p.r.n. Compazine 10 mg p.o. t.i.d. p.r.n. Dexamethasone Dosepak. Neurontin 300 mg p.o. twice daily,.Zoloft 100 mg p.o. daily. Restoril 30 mg p.o. nightly. Pravastatin 80 mg p.o. daily. Dictated by TESSA Flores for Shine Garay MD cc: TESSA Flores MD
== END 2016-10-22 16:40 | disposition home or self-care (01) ==
LOC: ED 21:29 → SUATTDRO 10-19 02:47 → 3S 10-19 02:47
PROVIDERS: ATTEND Internal Medicine

== ENCOUNTER 2016-11-25 11:43 | Inpatient (IN) ==
[2016-11-25] MEDS ORDERED: NS 500 ML IV ONE (12:22)
[2016-11-25] MEDS ORDERED: DILAUDID IV ONE (12:23)
--- NOTE | 2016-11-25 13:24 | Diag Imaging Result Doc PS360 ---
EXAM: CHEST-2 VIEWS HISTORY: weakness and pain TECHNIQUE: Two views COMPARISON: 10/18/2016 FINDINGS: The lungs are well expanded. The heart is not enlarged. The vessels are not distended. There are no infiltrates. No change in the right-sided portacatheter. No pneumothorax. No pleural effusions. IMPRESSION: No acute abnormality. Electronically signed by Gamal Chaudhary 11/25/2016 1:21 PM
[2016-11-25 13:55] LABS: AGAP 3; ALBUMIN 3.2 g/dL (3.5-5.0); ALKALINE PHOSPHATASE 81 U/L (32-104); BUN 15 mg/dL (8-22); CALCIUM 7.9 mg/dL (8.8-10.2); CHLORIDE 98 mmol/L (98-107); COSMO 269; GOT 11 U/L (10-30); GPT 21 U/L (10-36); POTASSIUM 3.7 mmol/L (3.5-5.1); SODIUM 134 mmol/L (136-145); TCO2 33 mmol/L (25-35); TOTAL BILIRUBIN 0.38 mg/dL (0.20-1.00); TOTAL PROTEIN 5.6 g/dL (6.3-8.3)
[2016-11-25 14:07] LABS: EOS# 0.28 X1000 (0.0-0.7); EOS% 22.4 % (0.0-10.0); HEMOGLOBIN 9.2 g/dL (12.0-16.0); MCH 28.8 PG (27-31); MCHC 31.7 g/dL (33-37); MCV 90.9 FL (81-99); MONO# 0.21 X1000 (0.11-0.59); MONO% 16.8 % (1.7-9.3); NEUT% 20.8 % (42.2-75.2); PLT 135 X1000 (130-400); RBC 3.19 XMIL (4.2-5.4)
[2016-11-25 14:20] LABS: MANUAL DIFF NEEDED? NO
[2016-11-25 15:43] LABS: URINE MICRO REVIEW NEEDED? NO; URINE SOURCE CLEAN CATCH
[2016-11-25 15:49] LABS: BILIRUBIN URINE NEGATIVE (NEGATIVE); BLOOD URINE TRACE (NEGATIVE); COLOR YELLOW; GLUCOSE URINE NEGATIVE (NEGATIVE); LEUKOCYTES URINE NEGATIVE (NEGATIVE); NITRITE URINE POSITIVE (NEGATIVE); PROTEIN URINE TRACE mg/dL (NEGATIVE); TURBIDITY URINE HAZY (CLEAR); UROBILINOGEN URINE NORMAL (NORMAL)
[2016-11-25 15:51] LABS: UR EPITHELIAL CELLS <10 /HPF (<10); URINE BACTERIA 4+ /HPF; URINE CULTURE NEEDED? YES; URINE RBC <10 /HPF (<10); URINE WBC <10 /HPF (<10)
[2016-11-25] MEDS ORDERED: NS 1,000 ML IV ONE (16:40)
[2016-11-25] MEDS: APRESOLINE PO SCH (17:18)
[2016-11-25] MEDS: MERREM 1 GM in NS 50 ML IV SCH (17:19)
--- NOTE | 2016-11-25 17:36 | HISTORY AND PHYSICAL ---
PRIMARY CARE PHYSICIAN: Dr. Nathan Lara. ONCOLOGIST: Dr. Earnestine Herman. CHIEF COMPLAINT: Weakness and diarrhea. HISTORY OF PRESENT ILLNESS: Mrs. Terrazas is an unfortunate 76-year-old female, well known to our service. She has a history of breast cancer status post bilateral mastectomy and has had multiple admissions in the past few weeks and months for nausea, vomiting, diarrhea, altered mental status and fever. She returns today again with weakness per her sister who is at the bedside. Patient is really unable to give any type of history given her mental status. The sister reports that she started having diarrhea on Tuesday night which was profuse in nature. This progressed into the next day and then stopped abruptly. Yesterday she had confusion, weakness and dizziness and today her sister brought her to the ER for further evaluation. In the ER, she was noted to be neutropenic with a low-grade fever and also with a UTI. On physical exam, she does have some abdominal tenderness to palpation. Chest x-ray does not show anything acute. We have ordered a CT of the head, abdomen and pelvis. We are going to admit her for further treatment and evaluation. PAST MEDICAL HISTORY: 1. Breast cancer status post bilateral mastectomy. 2. Recent diagnosis of atrial fibrillation on anticoagulant. 3. Coronary artery disease. 4. Hyperlipidemia. 5. Hypertension. 6. Multiple admissions for nausea, vomiting, diarrhea and neutropenia. SURGICAL HISTORY: AAA repair, cataract surgery bilaterally, hysterectomy, breast biopsy, mastectomy. REVIEW OF SYSTEMS: Unable to obtain. FAMILY HISTORY: Noncontributory. ALLERGIES: To latex, penicillin, sulfa. HOME MEDICATIONS: Eliquis 5 mg b.i.d. Aspirin 81 mg daily. Cholestyramine 4 g p.o. b.i.d. Cyanocobalamin 1000 mcg injected as directed. Dexamethasone 8 mg as directed. Cardizem CD 120 mg p.o. daily. Benadryl 25 mg q.4. Neurontin 300 mg p.o. b.i.d. Apresoline 25 mg t.i.d. [place] every 6 hours as needed for pain. Lopressor 50 mg p.o. b.i.d. Toprol-XL 100 mg daily. Zofran 8 mg t.i.d. as needed. Pravastatin 80 mg daily. Compazine 10 mg t.i.d. Zoloft 100 mg daily. PHYSICAL EXAMINATION: VITAL SIGNS: Blood pressure is 96/48, heart rate 117, O2 saturations 94% on room air. Temperature is 99 degrees. GENERAL: This is an overweight, female, lying in hospital bed in no acute distress. NEUROLOGIC: The patient is somewhat lethargic. She has her eyes open spontaneously. She is confused but follows commands appropriately without focal deficits. HEENT: Head is atraumatic, normocephalic. Pupils are equal, round, and reactive to light. Oral mucosa is dry. Trachea is midline. There is no JVD. CHEST: Clear to auscultation bilaterally. CV: Regular rate and rhythm. S1, S2 is noted. No murmurs. GI: Soft, but painful to palpation in the right upper quadrant and right lower quadrant. Hypoactive bowel sounds noted. EXTREMITIES: Without edema, clubbing or cyanosis. Pulses palpable bilaterally. DIAGNOSTIC DATA: Chest x-ray no acute abnormality. WBC 1.25, hemoglobin 9.2, hematocrit 29.0, platelet count 135,000. Neutrophils 0.26. Sodium 134, potassium 3.7, chloride 98, CO2 33, anion gap 30, BUN 15, creatinine 0.5, glucose 93, calcium 7.9, AST 11, ALT 21, alkaline phosphatase 81. Protein 5.6, lactate 1.7. UA is positive for UTI. ASSESSMENT AND PLAN: 1. Toxic metabolic encephalopathy: We are going to check a head CT now and continue IV fluid hydration, hold off on any mind-altering substances and monitor response. We will treat underlying UTI and volume depletion. 2. Neutropenia with low grade fever: Will treat as neutropenic fever. We will start with meropenem after appropriate blood cultures have been obtained. Continue IV fluid hydration and monitor cultures. 3. Diarrhea: Will check stool studies if she continues to have diarrhea although her family member states that this has since stopped. 4. Abdominal pain: We are checking an abdominal and pelvis CT now. Will add antiemetics and IV fluids. 5. CAD overall stable. We will hold on her aspirin for now and restart in the morning if everything is stable. 6. Breast cancer: We are going to consult her oncologist, defer any management to them. 7. PAF: We will make sure and check an EKG and keep her on telemetry. Continue her medications either later tonight or early in the morning. 8. Deep vein thrombosis prophylaxis will be provided with her home anticoagulation. Further recommendations to follow. Dictated by TSESA Roberts for Juliano Pierre MD cc: TESSA Roberts MD I have seen and examined patient and have discussed the above plan with the patient. Neutropenic fever management Diarrhea Breast Cancer. MTDD
[2016-11-25] MEDS: NS 1,000 ML IV SCH (19:01)
--- NOTE | 2016-11-25 19:46 | Diag Imaging Result Doc PS360 ---
HEAD W/O CONTRAST - 11/25/2016 INDICATION: ams, h/o breast cancer TECHNIQUE: A CT dose reduction protocol was used. COMPARISON: 09/18/2016 FINDINGS: Stable moderate periventricular white matter chronic microvascular disease. No intercranial mass or hemorrhage. The skull is intact. The sinuses are clear. IMPRESSION: No acute disease or change from prior. Electronically signed by Dave Gamboa 11/25/2016 7:44 PM
--- NOTE | 2016-11-25 19:58 | Diag Imaging Result Doc PS360 ---
CT ABD/PELVIS W/ IV CONT ONLY - 11/25/2016 INDICATION: neutropenic fever/abd pain/recent diverticulitis TECHNIQUE: A CT dose reduction protocol was used. COMPARISON: 11/18/2016 FINDINGS: No significant infiltrates in the lung bases. Stable abdominal aortic aneurysm. No evidence of bowel obstruction or inflammation. IMPRESSION: No acute disease or change from prior. Electronically signed by Dave Gamboa 11/25/2016 7:55 PM
[2016-11-25] MEDS: NORCO-7.5 PO PRN (21:47)
[2016-11-25] MEDS: ELIQUIS PO SCH (21:47)
[2016-11-25] MEDS: ZOFRAN IV PRN (22:01)
[2016-11-26] MEDS: MERREM 1 GM in NS 50 ML IV SCH ×3 (01:48→17:15)
[2016-11-26] MEDS: ZOFRAN IV PRN ×3 (02:38→19:38)
[2016-11-26] MEDS: NORCO-7.5 PO PRN ×4 (04:15→22:06)
--- NOTE | 2016-11-26 05:23 | EKG Report ---
Test Performed on : 11/26/2016 01:53:59 AM Test Reason : Tachycardia Blood Pressure : / mmHG Vent. Rate : 109 BPM Atrial Rate : 109 BPM P-R Int : 142 ms QRS Dur : 092 ms QT Int : 352 ms P-R-T Axes : 032 033 037 degrees QTc Int : 474 ms Sinus tachycardia. Otherwise normal ECG When compared with ECG of 25-NOV-2016 17:35, (Unconfirmed) Sinus rhythm. has replaced Atrial fibrillation. Nonspecific T wave abnormality no longer evident in Lateral leads Confirmed by Ronn Forrester DO ([id number]) on 11/28/2016 10:19:49 AM
--- NOTE | 2016-11-26 05:41 | EKG Report ---
Test Performed on : 11/25/2016 5:35:16 PM Test Reason : h/o afib Blood Pressure : / mmHG Vent. Rate : 120 BPM Atrial Rate : 138 BPM P-R Int : 000 ms QRS Dur : 096 ms QT Int : 336 ms P-R-T Axes : 000 059 078 degrees QTc Int : 474 ms Atrial fibrillation. with rapid ventricular response. Nonspecific ST and T wave abnormality Abnormal ECG When compared with ECG of 25-NOV-2016 11:58, (Unconfirmed) Atrial fibrillation. has replaced Sinus rhythm. Nonspecific T wave abnormality, worse in Lateral leads Confirmed by Ronn Forrester DO ([id number]) on 11/28/2016 10:12:10 AM
--- NOTE | 2016-11-26 05:45 | EKG Report ---
Test Performed on : 11/25/2016 11:58:47 AM Test Reason : No Order in Related Content Database (RCDb) Blood Pressure : / mmHG Vent. Rate : 084 BPM Atrial Rate : 084 BPM P-R Int : 142 ms QRS Dur : 092 ms QT Int : 402 ms P-R-T Axes : 068 024 057 degrees QTc Int : 475 ms Normal sinus rhythm. Normal ECG When compared with ECG of 20-OCT-2016 06:05, No significant change was found Unconfirmed Result
[2016-11-26] MEDS: NS 1,000 ML IV SCH (06:38)
[2016-11-26 06:55] LABS: HEMATOCRIT 28.6 % (37.0-47.0); HEMOGLOBIN 9.1 g/dL (12.0-16.0); MCH 28.5 PG (27-31); MCHC 31.8 g/dL (33-37); MCV 89.7 FL (81-99); MPV 9.2 FL (7.4-10.4); PLT 147 X1000 (130-400); RBC 3.19 XMIL (4.2-5.4)
[2016-11-26 07:14] LABS: AGAP 8; BUN 6 mg/dL (8-22); CALCIUM 7.9 mg/dL (8.8-10.2); CHLORIDE 104 mmol/L (98-107); COSMO 282; POTASSIUM 3.5 mmol/L (3.5-5.1); SODIUM 142 mmol/L (136-145); TCO2 30 mmol/L (25-35)
[2016-11-26 08:24] LABS: EOS 25 % (1-10); LYMPHS 40 % (21-51); MONO 5 % (1-9)
[2016-11-26] MEDS: ASPIRIN PO SCH (09:36)
[2016-11-26] MEDS: CARDIZEM CD PO SCH (09:36)
[2016-11-26] MEDS: APRESOLINE PO SCH ×3 (09:36→16:41)
[2016-11-26] MEDS: ELIQUIS PO SCH ×2 (09:36→21:28)
[2016-11-26] MEDS: ZOLOFT PO SCH (09:36)
[2016-11-26] MEDS: TOPROL XL PO SCH (09:36)
[2016-11-26] MEDS: GRANIX SUBQ SCH (13:24)
--- NOTE | 2016-11-26 15:15 | CONSULTATION ---
DATE OF CONSULTATION: 11/26/2016 REQUESTING PHYSICIAN: Juliano Pierre MD. REASON FOR CONSULTATION: Breast cancer. Patient known. HISTORY OF PRESENT ILLNESS: Ms. Terrazas is a 76-year-old who is known to us as we are currently treating her for breast cancer in the neoadjuvant setting. Patient most recently had Taxotere and Cytoxan on 11/19/2016. She did receive a Neulasta injection on 11/20/2016. Patient has previously received treatment that resulted in her having some issues that required hospitalization. At this time, the patient has presented with complaints of weakness, loss of appetite, some confusion. She has also been having diarrhea, nausea and vomiting. Workup has so far revealed the patient to have a urinary tract infection as well as C diff. Head CT has been negative. On a previous hospitalization, the patient was found to have a localized colon perforation that we have been monitoring closely. Repeat CT shows that her abdominal examination is overall stable and shows no evidence of inflammation at this time. The patient currently is improved. She is alert and oriented. Her sister is at bedside. PAST MEDICAL HISTORY: 1. Chronic low back pain. 2. Hypertension. 3. High cholesterol. 4. GERD. 5. Coronary artery disease. 6. Insomnia. 7. Triple negative breast cancer, currently receiving chemotherapy with Taxotere and Cytoxan. 8. Neutropenic fever. PAST SURGICAL HISTORY: 1. Coronary stent placement 2011. 2. Partial hysterectomy 1969. 3. Tonsillectomy in childhood. SOCIAL HISTORY: Patient is . She lives with her . She is a former smoker who quit smoking in 2011. She has a [id number] history. She denies any alcohol or illicit drug use. She also has a very supportive family. FAMILY HISTORY: Mother at the age 81 of breast cancer. Father at the age of 83 from Parkinson's disease. She also has 3 sisters who have all had breast cancer. She has 2 sisters who are positive for BRAF mutation. REVIEW OF SYSTEM: Twelve point review of systems has been completed and negative except as per HPI. PHYSICAL EXAMINATION: Vital Signs: Temperature 98.6 degrees, heart rate 95, respirations 18, blood pressure 148/65, O2 saturation 98% on room air. General: female, lying in hospital bed in no acute distress. HEENT: Head normocephalic, atraumatic. HEENT: Eyes: Pupils equal, round, reactive. Ears, nose, throat, neck, mouth: Oral mucosa appears to be normal. Trachea is midline. Gross auditory acuity is intact. Cardiovascular: S1-S2 heard. Regular rate. No murmurs, gallops, or rubs appreciated. Respiratory: Chest is essentially clear to auscultation bilaterally with normal respiratory effort. Gastrointestinal: Abdomen is soft. There is some diffuse tenderness. Positive bowel sounds noted. Musculoskeletal : No obvious bony abnormalities. Extremities: Patient has some trace bilateral extremity edema. Neurologic: Patient is alert and oriented. She is answering questions. No obvious focal motor deficits noted. LABS AND STUDIES: White blood cells today are 1.08, hemoglobin 9.1, hematocrit 28.6, platelets 147,000. She has neutropenia. Sodium 142, potassium 3.5, chloride 104, CO2 30 , BUN 6, creatinine 0.5. UA is consistent with UTI. Head CT as per above. CT of abdomen and pelvis as per above. Urine culture positive for gram-negative rods and C. diff is positive. Blood cultures are currently pending. ASSESSMENT AND PLAN: 1. Triple negative breast cancer. Patient is status post 3 cycles of Taxotere and Cytoxan. She has had poor tolerance to treatment. Chemotherapy will be discontinued at this time. Patient will need to return as an outpatient when she has recovered to discuss the next steps in treatment for her breast cancer. 2. Clostridium difficile. The patient will need to be medicated with Flagyl or p.o. vancomycin. Management as per the primary team. 3. Neutropenia with low-grade fever. The patient is already on neutropenic precautions. We will go ahead and monitor her cultures. She is on broad-spectrum antibiotics with meropenem at this time. We will also go ahead and add Granix daily until her white count has recovered. She is status post Neulasta injection on 11/20/2016. 4. Abdominal pain. Abdominal and pelvis CT showed no inflammation. Continue antiemetics and IV fluids. Treat Clostridium difficile as per above. 5. Coronary artery disease. This is overall stable. 6. Paroxysmal atrial fibrillation. She will continue on Cardizem. She is also on Eliquis which has been continued as well. EKG is currently showing sinus rhythm, it sounds regular on examination. 7. Loss of appetite. Discussed how this is likely due to the patient being at her edwardo after treatment. I encouraged the patient to eat and drink as much as possible. Continue to monitor. 8. Toxic metabolic encephalopathy. CT of head was negative. Seems to be improving now that the patient's urinary tract infection is being treated and IV hydration has been started. Thank you for consulting us on Ms. Terrazas. We will continue to follow along and adjust our treatment plan per her hospital course. Dictated by ERNESTO Sanchez for Earnestine Herman MD cc: Earnestine Herman MD [facility]
[2016-11-26] MEDS ORDERED: VANCOMYCIN IV PER PHARMACY MISC SCH (15:30)
[2016-11-26] MEDS: VANCOCIN PO SCH ×2 (16:41→21:28)
[2016-11-26] MEDS ORDERED: VANCOMYCIN 1,500 MG in NS 250 ML IV ONE (17:00)
--- NOTE | 2016-11-26 17:01 | PROGRESS NOTE ---
DATE: 11/26/2016 SUBJECTIVE: Today Ms. Terrazas refers to be doing a little better. Still continues to have some abdominal discomfort. OBJECTIVE: Vital signs: Blood pressure is 153/68, pulse of 85, respiration is 18, temperature is 99.0 degrees. General: Ms. Terrazas is a 76-year-old female. She was in bed, in mild painful distress. HEENT: Mucosa is slightly dry. Anicteric. Acyanotic. Neck : Supple. Chest: Good air entry bilaterally. No crepitations. No rhonchi. Cardiovascular: Regular rate and rhythm. Abdomen: Soft. Mildly tender in the right upper quadrant. Bowel sounds are slightly increased. Extremities: No pedal edema. 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 Head normocephalic but there is no hair due to chemotherapy side effect. DIAGNOSTIC DATA: A CT scan of the abdomen and pelvic was done yesterday which shows no acute disease. Stool C. difficile toxin is negative, however the antigen is positive in the context of the patient having diarrhea. I will go ahead and treat her for a possible C. difficile colitis. Patient's urine culture is also positive for gram-negative rods and blood culture 1 out of 2 is positive for gram-positive cocci. ASSESSMENT: 1. Sepsis secondary to possible blood borne infection and urinary tract infection . 2. Gram-negative ady urinary tract infection. 3. Neutropenic fever. 4. Diarrhea with Clostridium difficile antigen positive. As I said, because patient is symptomatic and immunocompromised, I would go ahead and treat her with oral vancomycin for presumed Clostridium difficile colitis. 5. Gram-positive cocci bacteremia, 1 out of 2. I suspect this is probably contamination. However will cover her up with IV vancomycin until we have the final identification and sensitivity of this bacteria. 6. 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 The patient is status post 3 cycles of Taxotere and Cytoxan. Follows up with Dr. Herman. cc: MD YANICK Saunders
[2016-11-27] MEDS: VANCOCIN PO SCH ×4 (02:59→22:07)
[2016-11-27] MEDS: ZOFRAN IV PRN ×4 (02:59→20:40)
[2016-11-27] MEDS: MERREM 1 GM in NS 50 ML IV SCH (02:59)
[2016-11-27] MEDS: NS 1,000 ML IV SCH ×2 (03:06→16:10)
[2016-11-27] MEDS: NORCO-7.5 PO PRN ×4 (04:02→22:07)
[2016-11-27 07:30] LABS: BASO% 0.4 % (0.0-0.8); EOS# 0.26 X1000 (0.0-0.7); EOS% 3.7 % (0.0-10.0); HEMATOCRIT 29.2 % (37.0-47.0); HEMOGLOBIN 9.6 g/dL (12.0-16.0); IMM GRAN# 0.41 X1000 (0.0-0.04); IMM GRAN% 5.8 % (0.0-0.5); LYMPH# 0.76 X1000 (1.2-3.4); LYMPH% 10.7 % (20.5-51.1); MANUAL DIFF NEEDED? YES; MCH 28.6 PG (27-31); MCHC 32.9 g/dL (33-37); MCV 86.9 FL (81-99); MONO# 0.64 X1000 (0.11-0.59); MPV 8.3 FL (7.4-10.4); NEUT% 70.4 % (42.2-75.2); PLT 194 X1000 (130-400); RBC 3.36 XMIL (4.2-5.4)
[2016-11-27 07:56] LABS: AGAP 9; BUN 3 mg/dL (8-22); CALCIUM 8.1 mg/dL (8.8-10.2); CHLORIDE 102 mmol/L (98-107); COSMO 272; POTASSIUM 3.4 mmol/L (3.5-5.1); SODIUM 138 mmol/L (136-145); TCO2 27 mmol/L (25-35)
[2016-11-27 09:03] LABS: BANDS 12 % (0-1); LYMPHS 12 % (21-51); MONO 8 % (1-9)
[2016-11-27] MEDS: CARDIZEM CD PO SCH (09:29)
[2016-11-27] MEDS: ELIQUIS PO SCH ×2 (09:29→22:07)
[2016-11-27] MEDS: ASPIRIN PO SCH (09:29)
[2016-11-27] MEDS: TOPROL XL PO SCH (09:29)
[2016-11-27] MEDS: APRESOLINE PO SCH ×3 (09:29→17:58)
[2016-11-27] MEDS: ZOLOFT PO SCH (09:29)
[2016-11-27] MEDS: GRANIX SUBQ SCH (09:30)
[2016-11-27] MEDS: LEVAQUIN 250 MG/D5W 250 MG/50 ML IVPB IV SCH (09:35)
--- NOTE | 2016-11-27 15:19 | PROGRESS NOTE ---
DATE: 11/27/2016 SUBJECTIVE: Today, Ms. Terrazas refers to be doing a lot better. She had about 8 bowel movements yesterday, 2 early on today, but since 4 a.m. this morning she has not had any more bowel movement. Denies any vomiting and denies any abdominal pain. OBJECTIVE: Vital Signs: Blood pressure is 167/77. Pulse of 89, respiration is 98.1. General: Ms. Terrazas is a 76-year-old female. She was in bed not seemingly distressed. HEENT: Mucosa is pink and moist. Anicteric and acyanotic. Neck is supple. Chest was clear. Cardiovascular: Regular rate and rhythm. There are no murmurs, no rubs, no gallops. Abdomen is soft. Extremities: No pedal edema. 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 There is no focal neurological deficit. Head: The patient has a bald head due to chemotherapy side effects. LABORATORY DATA: WBC is up to 7.09, hemoglobin is 9.6, platelet count is 194,000. There is about 12% of bands on peripheral smear. Chemistry is reviewed. Potassium is 3.4. Rest of chemistry is normal. Urine culture is positive for Escherichia coli which is pansensitive. The blood culture is only 1/2 positive. All the other stool studies have been negative. ASSESSMENT: 1. Sepsis secondary to urinary tract infection. 2. Escherichia coli urinary tract infection. 3. Neutropenic fever, improved. 4. Diarrhea with Clostridium difficile antigen positive. We are presumably treating her for Clostridium difficile colitis. 5. Gram positive cocci in blood 1/2, presumed to be contamination. I have, therefore, discontinued the vancomycin. 6. 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 Today, Ms. Terrazas is doing a lot better. She is more interactive. She is more energetic today than yesterday and less bowel movements. We will switch her antibiotics from meropenem to levofloxacin with intention to convert this to p.o. We are going to continue with all her other home medications and adequate hydration and, hopefully, get her home by Tuesday. cc: Juliano Pierre MD
[2016-11-27] MEDS ORDERED: VANCOMYCIN 1,350 MG in NS 250 ML IV SCH (17:00)
[2016-11-27] MEDS: DILAUDID IV PRN (18:38)
[2016-11-27] MEDS: RESTORIL PO SCH (22:12)
[2016-11-28] MEDS: VANCOCIN PO SCH ×4 (03:04→22:53)
[2016-11-28] MEDS: ZOFRAN IV PRN ×3 (03:04→22:54)
[2016-11-28] MEDS: DILAUDID IV PRN ×5 (03:07→22:54)
[2016-11-28] MEDS: NS 1,000 ML IV SCH ×2 (05:26→19:54)
[2016-11-28] MEDS: NORCO-7.5 PO PRN ×3 (05:30→19:49)
[2016-11-28 07:00] LABS: BASO% 0.3 % (0.0-0.8); EOS# 0.26 X1000 (0.0-0.7); EOS% 1.1 % (0.0-10.0); HEMOGLOBIN 9.1 g/dL (12.0-16.0); IMM GRAN# 2.03 X1000 (0.0-0.04); IMM GRAN% 8.3 % (0.0-0.5); LYMPH# 1.33 X1000 (1.2-3.4); LYMPH% 5.4 % (20.5-51.1); MANUAL DIFF NEEDED? YES; MCH 28.4 PG (27-31); MCHC 32.5 g/dL (33-37); MCV 87.5 FL (81-99); MONO# 2.04 X1000 (0.11-0.59); MONO% 8.3 % (1.7-9.3); MPV 8.7 FL (7.4-10.4); NEUT% 76.6 % (42.2-75.2); PLT 225 X1000 (130-400)
[2016-11-28 07:16] LABS: AGAP 12; BUN 3 mg/dL (8-22); CALCIUM 8.1 mg/dL (8.8-10.2); CHLORIDE 100 mmol/L (98-107); COSMO 271; POTASSIUM 3.2 mmol/L (3.5-5.1); SODIUM 138 mmol/L (136-145); TCO2 26 mmol/L (25-35)
[2016-11-28 07:50] LABS: BANDS 6 % (0-1); EOS 2 % (1-10); LYMPHS 6 % (21-51); MONO 10 % (1-9)
[2016-11-28] MEDS ORDERED: KLOR-CON PO ONE (08:11)
[2016-11-28] MEDS ORDERED: MAGNESIUM SULFATE 2 GM/S.W.I. 2 GM/50 ML IVPB IV ONE (08:11)
[2016-11-28] MEDS: CARDIZEM CD PO SCH (08:45)
[2016-11-28] MEDS: TOPROL XL PO SCH (08:45)
[2016-11-28] MEDS: ZOLOFT PO SCH (08:45)
[2016-11-28] MEDS: APRESOLINE PO SCH ×3 (08:46→17:05)
[2016-11-28] MEDS: ASPIRIN PO SCH (08:46)
[2016-11-28] MEDS: ELIQUIS PO SCH ×2 (08:46→22:54)
[2016-11-28] MEDS: LEVAQUIN 250 MG/D5W 250 MG/50 ML IVPB IV SCH (08:47)
--- NOTE | 2016-11-28 14:20 | PROGRESS NOTE ---
DATE: 11/28/2016 SUBJECTIVE: Today Ms. Terrazas refers to be doing a little better. She was actually sitting up on the bed eating lunch. Patient had only 1 bowel movement yesterday and also 1 bowel movement today. OBJECTIVELY: Vital signs: Blood pressure is 124/63, pulse 88, respirations 18, temperature 97.9 degrees. General: Ms. Terrazas is a 76-year-old female. She is sitting up in the bed no seemingly distress. HEENT: Mucosa is pink and moist. Anicteric and acyanotic. Neck: Supple. Chest: Clear. Cardiovascular: Regular rate and rhythm. There is no murmurs, no rubs, no gallops. Abdomen: Soft, nontender. Bowel sounds are present. Extremities: No pedal edema. 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 There is no focal neurological deficit. LABORATORY DATA: WBC is 24.45, hemoglobin is 9.1, platelet count of 225,000. Chemistry is reviewed. Sodium is 138, potassium is 3.2, rest of electrolytes are normal. ASSESSMENT: 1. Neutropenic fever improved. 2. Sepsis secondary to urinary tract infection. 3. Escherichia coli urinary tract infection. Patient is currently on levofloxacin. Has been on antibiotics for the past 3 days. We plan to treat this for a total of 7 days. 4. Diarrhea with Clostridium difficile antigen positive. We presumably treating this for C. difficile diarrhea. She is on p.o. vancomycin. She will take this for a total of 14 days. 5. 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 6. 1/2 gram positive cocci which is now Staph epididymides. I think it is a contamination. So in general I think Ms. Terrazas is doing a little better today. Diarrhea has remarkably reduced. She does not have any more urine symptoms and she has been afebrile throughout the hospital course. We are going to get PT to start working with her either today or tomorrow. We anticipate that we can discharge her tomorrow morning. Her potassium was a little low, we are going to replace that, white count is now up to normal, is actually high so I have discontinued the Neupogen. cc: Juliano Pierre MD
[2016-11-28] MEDS: RESTORIL PO SCH (22:54)
[2016-11-29] MEDS: NORCO-7.5 PO PRN ×2 (03:43→09:38)
[2016-11-29] MEDS: ZOFRAN IV PRN (03:43)
[2016-11-29] MEDS: VANCOCIN PO SCH ×2 (03:43→09:33)
[2016-11-29 07:38] LABS: BASO% 0.5 % (0.0-0.8); EOS# 0.22 X1000 (0.0-0.7); EOS% 0.9 % (0.0-10.0); HEMATOCRIT 29.2 % (37.0-47.0); HEMOGLOBIN 9.4 g/dL (12.0-16.0); IMM GRAN# 2.63 X1000 (0.0-0.04); IMM GRAN% 10.5 % (0.0-0.5); LYMPH# 1.29 X1000 (1.2-3.4); LYMPH% 5.1 % (20.5-51.1); MANUAL DIFF NEEDED? YES; MCH 28.3 PG (27-31); MCHC 32.2 g/dL (33-37); MONO# 1.88 X1000 (0.11-0.59); MONO% 7.5 % (1.7-9.3); MPV 8.4 FL (7.4-10.4); NEUT% 75.5 % (42.2-75.2); PLT 243 X1000 (130-400); RBC 3.32 XMIL (4.2-5.4)
[2016-11-29 07:43] LABS: AGAP 11; ALKALINE PHOSPHATASE 128 U/L (32-104); BUN 4 mg/dL (8-22); CHLORIDE 103 mmol/L (98-107); COSMO 275; GOT 13 U/L (10-30); GPT 13 U/L (10-36); POTASSIUM 3.7 mmol/L (3.5-5.1); SODIUM 139 mmol/L (136-145); TCO2 25 mmol/L (25-35); TOTAL BILIRUBIN 0.16 mg/dL (0.20-1.00); TOTAL PROTEIN 5.5 g/dL (6.3-8.3)
[2016-11-29] MEDS: DILAUDID IV PRN ×2 (07:52→11:02)
[2016-11-29 08:05] LABS: BANDS 6 % (0-1); EOS 4 % (1-10); LYMPHS 6 % (21-51); MONO 6 % (1-9); NRBC 1 % (0-0)
[2016-11-29] MEDS ORDERED: LEVAQUIN PO SCH (09:00)
[2016-11-29 09:27] VITALS: BP 163/73
[2016-11-29] MEDS: ASPIRIN PO SCH (09:33)
[2016-11-29] MEDS: ZOLOFT PO SCH (09:33)
[2016-11-29] MEDS: TOPROL XL PO SCH (09:33)
[2016-11-29] MEDS: APRESOLINE PO SCH (09:33)
[2016-11-29] MEDS: ELIQUIS PO SCH (09:33)
[2016-11-29] MEDS: CARDIZEM CD PO SCH (09:33)
[2016-11-29] MEDS ORDERED: VANCOMYCIN ORAL SOLN PO SCH (14:00)
--- NOTE | 2016-11-29 19:35 | DISCHARGE SUMMARY ---
ADMISSION DATE: 11/25/2016 DISCHARGE DATE: 11/29/2016 CONSULTATION: Earnestine Herman MD with Hematology/Oncology. PERTINENT PROCEDURES: 1. Abdomen and pelvis CT showed no acute disease or change from prior. 2. Head CT showed no acute disease or change from prior. DISCHARGE DIAGNOSES: 1. Neutropenic fever resolved. 2. Sepsis secondary to urinary tract infection improved. Discharged on p.o. Levaquin. 3. Escherichia coli urinary tract infection. Continue on Levaquin. 4. Diarrhea with Clostridium difficile antigen positive. Continue on vancomycin for a total of 14 days. 5. 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 6. Gram-positive cocci Staphylococcus Epi in blood culture 1 out of 2 considered to be contamination. HOSPITAL COURSE: Ms. Terrazas is an unfortunate 76-year-old, female, well known to our service with a history of breast cancer status post bilateral mastectomy who had multiple admissions in the past few weeks and months for nausea, vomiting, diarrhea, altered mental status and fever. She returned again with weakness. She once again started having diarrhea Tuesday night which was profuse in nature that continued into the next day and then stopped abruptly. She started having confusion, weakness and dizziness. She was brought to the ED for evaluation. She is noted to be neutropenic with a low-grade fever as well as a UTI. Her chest x -ray did not show anything acute. There was no change in her abdomen, pelvis or head CT with no acute findings. She was admitted for toxic metabolic encephalopathy, started on IV fluids as well as IV antibiotics for her UTI and neutropenic fever. Cultures were obtained, blood cultures were obtained as well as stool cultures and placed on neutropenic precautions. Hematology/Oncology added Granix daily until her white count recovered. She was status post Neulasta on 11/20/2016. Her mentation improved. Her neutropenia improved. Her diarrhea remarkably reduced. Her white count went up to 24 so they discontinued her Neupogen. Ms. Terrazas has been getting out of bed. She has been eating. She has been working with Physical Therapy. She is being discharged back home with home health, to continue to follow up with Dr. Herman and her primary Dr. Lara. VITAL SIGNS ON DISCHARGE: Temperature 98.1 degrees, heart rate 87, respirations 18, blood pressure is 163/73, O2 is 94% on room air. DISCHARGE MEDICATIONS: 1. Eliquis 5 mg p.o. b.i.d. 2. Aspirin 81 mg p.o. daily. 3. B12, 1000 mcg IM q. 30 days. 4. Betamethasone 8 mg p.o. as directed. 5. Cardizem CD 120 mg p.o. daily. 6. Benadryl 25 mg p.o. q.4 hours p.r.n. 7. Gabapentin 300 mg p.o. b.i.d. 8. Apresoline 25 mg p.o. t.i.d. 9. Hitchcock 10/325, 1 each p.o. q.6 hours. 10. Levaquin 250 mg p.o. daily for 5 days. 11. Toprol-XL 100 mg p.o. daily. 12. Zofran 8 mg p.o. t.i.d. p.r.n. 13. Pravastatin 80 mg p.o. daily. 14. Compazine 10 mg p.o. t.i.d. p.r.n. 15. Zoloft 100 mg p.o. daily. 16. Restoril 30 mg p.o. at bedtime. 17. Vancomycin oral solution 250 mg p.o. q.6 hours. FOLLOWUP: Ms. Terrazas is being discharged back home with [facility]. She will continue to follow up with Dr. Herman as instructed and her primary care physician in the next 1-2 weeks. She can return to the ED for any worsening of symptoms. DISCHARGE TIME: 30 minutes. Dictated by TESSA Silver for Juliano Pierre MD cc: MD Nathan Saunders MD [facility]ITALKathryn
--- NOTE | 2016-12-16 13:12 | PROVIDER DOCUMENTATION ---
This chart was entered by Zaid Martin Scribe, acting as scribe for Tereso Avalos MD. HPI-General Adult - General Chief Complaint: Altered Mental Status Stated Complaint: WEAKNESS,ABD PAIN,LEG PAIN/BREAST CANCER Time Seen by Provider: 11/25/16 12:07 Source: patient, family Allergies/Adverse Reactions: Patient Allergies Allergy/AdvReac Type Severity Reaction Status Date / Time latex Allergy RASH Verified 10/19/16 00:54 Penicillins Allergy Unknown Verified 10/19/16 00:54 Sulfa (Sulfonamide Allergy Unknown Verified 10/19/16 00:54 Antibiotics) Home Medications: Home Medication List Medication Instructions Recorded Confirmed Last Taken Type Pravastatin Sodium 80 mg PO DAILY 01/21/14 11/25/16 11/25/16 History Temazepam [Restoril] 30 mg PO HS 01/21/14 10/19/16 11/24/16 History Ondansetron [Zofran] 8 mg PO TID PRN PRN #30 tablet 01/27/14 11/25/16 11/25/16 Rx Apixaban [Eliquis] 5 mg PO BID #180 tablet 09/25/16 11/25/16 11/25/16 Rx Aspirin 81 mg PO DAILY chewtab 09/25/16 11/25/16 11/25/16 Rx Cyanocobalamin 1,000 microgm IM Q30D #6 vial 09/25/16 11/25/16 11/17/16 Rx Hydralazine [Apresoline] 25 mg PO TID #90 tablet 09/25/16 11/25/16 11/25/16 Rx Hydrocodone Bit/Acetaminophen 1 each PO Q6HR #20 tablet 09/25/16 11/25/16 Rx [Hydrocodon-Acetaminophn 10-325] Dexamethasone 8 mg PO DIRECTED 10/19/16 11/25/16 11/25/16 History Diphenhydramine [Benadryl] 25 mg PO Q4H PRN PRN 10/19/16 11/25/16 11/25/16 History Gabapentin 300 mg PO BID 10/19/16 11/25/16 11/25/16 History Prochlorperazine [Compazine] 10 mg PO TID PRN PRN 07/08/0211/25/16 11/25/16 History Sertraline [Zoloft] 100 mg PO DAILY 10/19/16 11/25/16 11/25/16 History Diltiazem C.d. [Cardizem Cd] 120 mg PO DAILY #60 capsule 10/22/16 11/25/1611/25 Rx Metoprolol Succinate [Toprol Xl] 100 mg PO DAILY #30 tab.er.24h 10/22/1611/25/16 Rx Levofloxacin [Levaquin] 250 mg PO DAILY #5 tablet 11/29/16 Unknown Rx Vancomycin Oral Soln 250 mg PO Q6HR #1 bottle 11/29/16 Unknown Rx - History of Present Illness -Gen Adult Nature of Presenting Problems: Patient is a 76 y/o F that presents with 24 hours of weakness, leg pain and cramping bilaterally, diarrhea, and confusion. Family reports that patient was confused at times but has improved. Patient is currently being treated for Breast CA by Dr.H Herman. She received chemo 6 days ago( 3 cycle). patient is weak tot he point of difficulty ambulating. Location of Pain/Injury: reports: lower body Quality of Pain: reports: aching, cramping Severity: reports: moderate Onset/Duration: reports: gradual, last night Timing: reports: still present, constant Context/Activities at Onset: reports: other (recent chemo) Modifying Factors: improves with: nothing Associated Symptoms: reports: diarrhea, fatigue, malaise, weakness, trouble walking, other (confusion). denies: back/neck pain, chest pain, constipation, cough, fever/chills, genitourinary problems, headaches, sinus congestion/ drainage, shortness of breath, syncope Similar Symptoms Previously?: Yes Recently seen or treated by another doctor?: Yes Review of Systems - Adult - REVIEW OF SYSTEMS - ADULT Constitutional: reports: fatique. denies: chills, fever Eyes: reports: no symptoms reported Ears, Nose, Mouth & Throat: denies: ear discharge, ear pain, sinus problem, throat pain, throat swelling Cardiovascular: denies: chest pain, palpitations, syncope Respiratory: denies: cough, shortness of breath, wheezing Gastrointestinal: reports: abdominal pain, diarrhea. denies: nausea, vomiting Genitourinary: denies: discharge, frequency, hematuria, urgency Musculoskeletal: reports: bone pain, muscle aches, muscle weakness Integumentary: reports: no symptoms reported Neurological: reports: no symptoms reported Psychiatric: reports: no symptoms reported Endocrine: reports: no symptoms reported Hematologic/Lymphatic: reports: no symptoms reported Allergic/Immunologic: reports: no symptoms reported All Other Systems: Reviewed and Negative Past History - Adult - PAST MEDICAL HISTORY-ADULT Review of Records: reports: Old Records Reviewed, Nursing Assessment Review, Medications Reviewed Cardiovascular: reports: HTN, hyperlipidemia, CA Gastrointestinal: reports: GERD, other (PUD) Obstetrical/Gynecological: reports: other (breast ca) Musculoskeletal: reports: arthritis - PRIOR SURGERIES/PROCEDURES Surgical/Procedure History: reports: cardiac stent, hysterectomy - PRIOR HOSPITALIZATIONS Prior Hospitalizations: reports: none - IMMUNIZATION STATUS Childhood Immunizations: See Nurse Assessment Flu Vaccine: See Nurse Assessment - FAMILY HISTORY Family History: reviewed, not pertinent - SOCIAL HISTORY Smoking: quit greater than 1 year, cigarettes Living Situation: family Physical Exam-General - PHYSICAL EXAM-ADULT Initial Vital Signs Reviewed: Yes - CONSTITUTIONAL General Appearance: alert, mild distress, other (ill appearing) - EYES Eyes: PERRL/EOMI, pink conjunctivae - HEAD, EARS, NOSE, MOUTH & THROAT HENMT: normocephalic/atraumatic, TMs normal, other (dry oral mucosa) - NECK Neck: full range of motion, normal inspection - RESPIRATORY Respiratory: lungs clear, normal breath sounds, no respiratory distress, no accessory muscle use - CARDIOVASCULAR Cardiovascular: regular rate, rhythm, no edema - GASTROINTESTINAL (ABDOMEN) Abdominal Exam: normal bowel sounds, soft, no organomegaly, tenderness ( diffusely) - MUSCULOSKELETAL Extremity: no pedal edema, normal capillary refill. negative: tenderness - SKIN Integumentary: normal color, warm/dry - NEUROLOGIC Neurologic: grossly normal, no motor/sensory deficits - PSYCHIATRIC Psych/Mental Status: normal mood/affect, oriented x 3 Progress - PLAN OF CARE/RESULTS Progress/Plan/Lab Results: Vital Signs - 8 hr 11/25/16 11:55 Temperature 99.4 F Pulse Rate 88 Respiratory Rate 20 Blood Pressure 97/51 O2 Sat by Pulse Oximetry 95 Orders Category Date Time Status CHEST-2 VIEWS [RAD] Stat Exams 11/25/16 12:22 Ordered CBC WITH ELECTRONIC DIFF [HEME] Stat Lab 11/25/16 12:20 Uncollected CMP [COMPREHENSIVE METABOLIC PANEL] [CHEM] Stat Lab 11/25/16 12:21 Uncollected URINALYSIS W/POSS RFLX CULT-1 [URINALYSIS] Stat Lab 11/25/16 12:21 Uncollected 0.9% Sodium Chloride Inj [Ns] 500 ml Med 11/25/16 12:22 Active IV 999 mls/hr Hydromorphone [Dilaudid] Med 11/25/16 12:23 Discontinued 0.5 mg IV NOW ONE Vital Signs Temp Pulse Resp BP Pulse Ox 11/25/16 14:13 104 H 16 126/76 95 11/25/16 14:00 115 H 136/121 91 L 11/25/16 11:55 99.4 F 88 20 97/51 95 latex Allergy (Verified 10/19/16 00:54) RASH Penicillins Allergy (Verified 10/19/16 00:54) Unknown Sulfa (Sulfonamide Antibiotics) Allergy (Verified 10/19/16 00:54) Unknown Pravastatin Sodium 80 mg PO DAILY 01/21/14 Temazepam [Restoril] 30 mg PO HS 01/21/14 Ondansetron [Zofran] 8 mg PO TID PRN PRN #30 tablet 01/27/14 Apixaban [Eliquis] 5 mg PO BID #180 tablet 09/25/16 Aspirin 81 mg PO DAILY chewtab 09/25/16 Cholestyramine/Aspartame [Questran Light] 4 gm PO BID #60 packet 09/25/16 Cyanocobalamin 1,000 microgm IM Q30D #6 vial 09/25/16 Cyanocobalamin 1,000 microgm IM Q7D #4 vial 09/25/16 Hydralazine [Apresoline] 25 mg PO TID #90 tablet 09/25/16 Hydrocodone Bit/Acetaminophen [Hydrocodon-Acetaminophn 10-325] 1 each PO Q6HR # 20 tablet 09/25/16 Metoprolol [Lopressor] 50 mg PO BID #120 tablet 09/25/16 Dexamethasone 8 mg PO DIRECTED 10/19/16 Diphenhydramine [Benadryl] 25 mg PO Q4H PRN PRN 10/19/16 Gabapentin 300 mg PO BID 10/19/16 Prochlorperazine [Compazine] 10 mg PO TID PRN PRN 07/04/17 Sertraline [Zoloft] 100 mg PO DAILY 10/19/16 Diltiazem C.d. [Cardizem C.d] 120 mg PO DAILY #60 capsule 10/22/16 Hydrocodone/APAP 7.5 mg/325 mg [R[place]o-7.5] 1 tab PO Q4H PRN PRN #30 tablet 10/22 Levofloxacin 750 mg PO DAILY #7 tablet 10/22/16 Metoprolol Succinate [Toprol Xl] 100 mg PO DAILY #30 tab.er.24h 10/22/16 Metronidazole [Flagyl] 500 mg PO TID #21 tablet 10/22/16 Laboratory 11/25/16 11/25/16 12:43 12:43 WBC 1.25 L RBC 3.19 L Hgb 9.2 L Hct 29.0 L MCV 90.9 MCH 28.8 MCHC 31.7 L RDW Std Deviation 15.5 H Plt Count 135 MPV 10.0 Neut % (Auto) 20.8 L Lymph % (Auto) 40.0 [place] % (Auto) 16.8 H Eos % (Auto) 22.4 H Baso % (Auto) 0.0 Neut # (Auto) 0.26 L* Lymph # (Auto) 0.50 L [place] # (Auto) 0.21 Eos # (Auto) 0.28 Baso # (Auto) 0.00 Segmented Neutrophils Not Reportable Sodium 134 L Potassium 3.7 Chloride 98 Carbon Dioxide 33 Anion Gap 3 BUN 15 Creatinine 0.5 Estimated GFR/1.73 m2 > 60 BUN/Creatinine Ratio 30 Glucose 93 Calculated Osmolality 269 Calcium 7.9 L Total Bilirubin 0.38 AST 11 ALT 21 Alkaline Phosphatase 81 Total Protein 5.6 L Albumin 3.2 L Globulin 2.4 Albumin/Globulin Ratio 1.3 Result Diagrams: 11/29/16 07:06 11/29/16 07:06 - EKG 1 Time of EKG reading by physician:: 12:32 EKG Read and Signed by:: Tereso Avalos EKG Interpretation (*Must complete 3 of following elements*): Normal Rate: 84 Rhythm: NSR [place]: normal QRS: normal SD Interval: normal ST Wave: normal - XRAY 1 XRAY Study: Chest Impression: Normal XRAY Interpretation: nad - CONSULTS/PCP/HOSPITALIST Notification #1 *Consult/PCP/Hospitalist*: Dr. day herman Time Discussed: 14:30 Reason/Comments: admit to hospitalist Consult Disposition: Admit (to hospitalist) Departure - Departure Date of Disposition Decision: 11/25/16 Time of Disposition Decision: 14:34 DIAGNOSIS: Diarrhea, Neutropenia, Weakness, Breast cancer Disposition: ADMITTED INPATIENT 09 Certified Medical Emergency: Emergent Condition: Stable - Critical Care Note This patient required my direct & personal management of CC.: No Attestation - Physician/ PURNIMA Attestation The physician spent face to face time with patient:: Yes Advanced Practice Provider documentation review:: Supervising physician onsite and consulted in the evaluation and care of this patient. The physician did have a face to face encounter with the patient. This chart was documented by the indicated scribe, (Zaid Martin, Scribe) and accurately reflects the services I performed and decisions made by me, Tereso Avalos MD, as attested by the provider's signature.
== END 2016-11-29 11:47 | disposition home health service (06) ==
LOC: ED 11:43 → 3N 15:17
PROVIDERS: ATTEND Internal Medicine

== ENCOUNTER 2017-01-14 01:50 | Inpatient (IN) ==
[2017-01-14] MEDS ORDERED: NORCO-7.5 PO ONE (02:15)
[2017-01-14] MEDS ORDERED: CATAPRES PO ONE (02:15)
[2017-01-14 02:25] LABS: BASO% 0.4 % (0.0-0.8); EOS# 0.47 X1000 (0.0-0.7); EOS% 4.2 % (0.0-10.0); HEMATOCRIT 29.8 % (37.0-47.0); HEMOGLOBIN 9.3 g/dL (12.0-16.0); IMM GRAN# 0.02 X1000 (0.0-0.04); IMM GRAN% 0.2 % (0.0-0.5); LYMPH# 1.02 X1000 (1.2-3.4); LYMPH% 9.1 % (20.5-51.1); MANUAL DIFF NEEDED? NO; MCH 27.4 PG (27-31); MCHC 31.2 g/dL (33-37); MCV 87.6 FL (81-99); MONO# 0.67 X1000 (0.11-0.59); NEUT% 80.1 % (42.2-75.2); PLT 449 X1000 (130-400)
[2017-01-14 02:49] LABS: ALLEN TEST YES; BE 8.4 mmoll (-3.0-3.0); BLOOD TYPE ARTERIAL; DRAW SITE R RADIAL; METHB 0.6 % (0.0-1.5); O2(CT) 12.6 mL/dL (15.0-23.0); PO2(98.6) 84 mmHg (60-100); SAMPLE BLOOD; SAO2 98.6 % (95.0-100.0); THB 9.2 g/dL (11.5-17.4); pH(98.6) 7.41 (7.35-7.45)
[2017-01-14 02:50] LABS: INR 1.69; PROTIME 18.4 Seconds (9.2-11.7); PTT 33.1 Seconds (22.0-36.0)
[2017-01-14 02:50] LABS: MODALITY ROOM AIR; PCO2(98.6) 54 mmHg (35-45)
[2017-01-14 03:47] LABS: AGAP 12; ALBUMIN 3.9 g/dL (3.5-5.0); ALKALINE PHOSPHATASE 142 U/L (32-104); BUN 6 mg/dL (8-22); CALCIUM 9.3 mg/dL (8.8-10.2); CHLORIDE 101 mmol/L (98-107); CK PROFILE 26 U/L (24-173); COSMO 284; GOT 14 U/L (10-30); GPT 5 U/L (10-36); POTASSIUM 3.9 mmol/L (3.5-5.1); SODIUM 143 mmol/L (136-145); TCO2 30 mmol/L (25-35); TOTAL BILIRUBIN 0.36 mg/dL (0.20-1.00); TOTAL PROTEIN 6.8 g/dL (6.3-8.3)
[2017-01-14] MEDS ORDERED: ZITHROMAX 500 MG/NS 500 MG/250 ML IVPB IV ONE (04:15)
--- NOTE | 2017-01-14 04:15 | PROVIDER DOCUMENTATION ---
This chart was entered by Tatianna Kyle Scribe, acting as scribe for Robin Ayala MD. HPI-Respiratory General - General Chief Complaint: Shortness of Breath Stated Complaint: sob Time Seen by Provider: 01/14/17 01:53 Source: patient, family Allergies/Adverse Reactions: Patient Allergies Allergy/AdvReac Type Severity Reaction Status Date / Time latex Allergy RASH Verified 01/14/17 02:23 Penicillins Allergy Unknown Verified 01/14/17 02:23 Sulfa (Sulfonamide Allergy Unknown Verified 01/14/17 02:23 Antibiotics) Home Medications: Home Medication List Medication Instructions Recorded Confirmed Last Taken Type Pravastatin Sodium 80 mg PO QHS 01/21/14 01/14/17 01/13/17 20:00 History Temazepam [Restoril] 30 mg PO HS 01/21/14 01/14/17 01/13/17 20:00 History Cyanocobalamin 1,000 microgm IM Q30D #6 vial 09/25/16 01/14/17 12/31/16 05:00 Rx Gabapentin 300 mg PO BID 10/19/16 01/14/17 01/13/17 20:00 History Sertraline [Zoloft] 100 mg PO QHS 10/19/16 01/14/17 01/13/17 20:00 History Metoprolol Succinate [Toprol Xl] 100 mg PO QHS 12/29/16 01/14/17 01/13/17 20:00 History Warfarin [Coumadin] 3 mg PO QHS 12/29/16 01/14/17 01/13/17 20:00 History Hydrocodone Bit/Acetaminophen 1 each PO Q6HR #20 tablet 01/01/17 01/14/17 20:00 Rx [Hydrocodon-Acetaminophn 10-325] Aspirin 81 mg PO QAM 01/14/17 01/14/17 01/13/17 08:00 History - History of Present Illness-Resp Nature of Presenting Problem: 76 Y/O F presents to ED with SOB. Pt states that she had a mastectomy on the 31 of December and states that yesterday she began c/o of SOB and turn to turn the O2 up on her tank. Family states that when she was of her Oxygen that her stats would drop down into the 70s as the lowest. Pt states that she has also had a headache and c/o of sinus drainage. pt is on Coumadin. Quality of Pain: reports: aching Severity in ED: reports: moderate Onset/Duration: reports: this morning Timing: reports: still present Cough Quality/Degree: reports: productive cough Modifying Factors: improves with: oxygen Associated Symptoms: reports: headache, nasal drainage, shortness of breath Similar Symptoms Previously?: No Recently seen or treated by another doctor?: Yes Review of Systems - Adult - REVIEW OF SYSTEMS - ADULT Constitutional: denies: chills, fever Eyes: reports: no symptoms reported Ears, Nose, Mouth & Throat: reports: sinus problem. denies: mouth/dental pain Cardiovascular: denies: chest pain Respiratory: reports: cough, shortness of breath Gastrointestinal: denies: abdominal pain, diarrhea, nausea, vomiting Genitourinary: reports: no symptoms reported Musculoskeletal: reports: no symptoms reported Integumentary: reports: no symptoms reported Neurological: reports: headache/migraines. denies: dizziness/vertigo, paresthesia Psychiatric: reports: no symptoms reported Endocrine: reports: no symptoms reported Hematologic/Lymphatic: reports: no symptoms reported Allergic/Immunologic: reports: no symptoms reported All Other Systems: Reviewed and Negative Past History - Adult - PAST MEDICAL HISTORY-ADULT Review of Records: reports: Old Records Reviewed, Nursing Assessment Review, Medications Reviewed, Social history reviewed & non-contributory. Major Childhood Illnesses: reports: denies history Cardiovascular: reports: HTN, hyperlipidemia, ID Respiratory: reports: denies history Gastrointestinal: reports: GERD, other (PUD) Obstetrical/Gynecological: reports: other (breast ca) Genitourinary: reports: denies history Musculoskeletal: reports: arthritis Neurological: reports: denies history Endocrine/Immune: reports: denies history Other Conditions: reports: denies history - PRIOR SURGERIES/PROCEDURES Surgical/Procedure History: reports: cardiac stent, hysterectomy - PRIOR HOSPITALIZATIONS Prior Hospitalizations: reports: none - IMMUNIZATION STATUS Childhood Immunizations: See Nurse Assessment Flu Vaccine: See Nurse Assessment - FAMILY HISTORY Family History: reviewed, not pertinent - SOCIAL HISTORY Smoking: quit greater than 1 year Alcohol Use Frequency: never Living Situation: family Physical Exam-General - CONSTITUTIONAL General Appearance: alert, no apparent distress - EYES Eyes: pink conjunctivae - HEAD, EARS, NOSE, MOUTH & THROAT HENMT: moist mucous membranes, normal ENT inspection, TMs normal - NECK Neck: full range of motion, supple - RESPIRATORY Respiratory: rales (rt lower lobe) - CARDIOVASCULAR Cardiovascular: regular rate, rhythm - GASTROINTESTINAL (ABDOMEN) Abdominal Exam: non tender, soft - LYMPHATIC Lymphatic: no adenopathy - MUSCULOSKELETAL Back Exam: no CVA tenderness, no vertebral tenderness Extremity: normal range of motion - SKIN Integumentary: normal color, normal turgor - NEUROLOGIC Neurologic: grossly normal - PSYCHIATRIC Psych/Mental Status: normal mood/affect, normal thought content, normal thought process, oriented x 3 Progress - PLAN OF CARE/RESULTS Progress/Plan/Lab Results: Vital Signs - 8 hr 01/14/17 01:50 Temperature 97.6 F Pulse Rate 74 Respiratory Rate 17 Blood Pressure 191/117 O2 Sat by Pulse Oximetry 96 Laboratory Results - last 24 hr 01/14/17 01/14/17 01/14/17 02:09 02:09 02:09 WBC 11.19 H RBC 3.40 L Hgb 9.3 L Hct 29.8 L MCV 87.6 MCH 27.4 MCHC 31.2 L RDW Std Deviation 13.6 Plt Count 449 H MPV 8.0 Immature Gran % (Auto) 0.2 Neut % (Auto) 80.1 H Lymph % (Auto) 9.1 L [place] % (Auto) 6.0 Eos % (Auto) 4.2 Baso % (Auto) 0.4 Immature Gran # (Auto) 0.02 Neut # (Auto) 8.96 H Lymph # (Auto) 1.02 L [place] # (Auto) 0.67 H Eos # (Auto) 0.47 Baso # (Auto) 0.05 PT INR PTT (Actin FS) D-Dimer 1.57 H Specimen Type Sample Site pH pCO2 pO2 HCO3 Base Excess Oxyhemoglobin ABG O2 Sat (Calculated) ABG O2 Saturation ABG Carboxyhemoglobin ABG Methemoglobin [place]et Test A-a O2 Difference Total Hemoglobin Lactate Blood Gas Modality FiO2 % Sodium 143 Potassium 3.9 Chloride 101 Carbon Dioxide 30 Anion Gap 12 BUN 6 L Creatinine 0.5 Estimated GFR/1.73 m2 > 60 BUN/Creatinine Ratio 12 Glucose 126 H Calculated Osmolality 284 Calcium 9.3 Magnesium 2.0 Total Bilirubin 0.36 AST 14 ALT 5 L Alkaline Phosphatase 142 H Creatine Kinase 26 Troponin T [id number] Pept Total Protein 6.8 Albumin 3.9 Globulin 2.9 Albumin/Globulin Ratio 1.3 Plasma Lactate 01/14/17 01/14/17 01/14/17 02:09 02:09 02:09 WBC RBC Hgb Hct MCV MCH MCHC RDW Std Deviation Plt Count MPV Immature Gran % (Auto) Neut % (Auto) Lymph % (Auto) [place] % (Auto) Eos % (Auto) Baso % (Auto) Immature Gran # (Auto) Neut # (Auto) Lymph # (Auto) [place] # (Auto) Eos # (Auto) Baso # (Auto) PT 18.4 H INR 1.69 PTT (Actin FS) 33.1 D-Dimer Specimen Type Sample Site pH pCO2 pO2 HCO3 Base Excess Oxyhemoglobin ABG O2 Sat (Calculated) ABG O2 Saturation ABG Carboxyhemoglobin ABG Methemoglobin [place] Test A-a O2 Difference Total Hemoglobin Lactate Blood Gas Modality FiO2 % Sodium Potassium Chloride Carbon Dioxide Anion Gap BUN Creatinine Estimated GFR/1.73 m2 BUN/Creatinine Ratio Glucose Calculated Osmolality Calcium Magnesium Total Bilirubin AST ALT Alkaline Phosphatase Creatine Kinase Troponin T < 0.010 Xqs-Y-Cyeumqsxail Pept 5122 H Total Protein Albumin Globulin Albumin/Globulin Ratio Plasma Lactate 01/14/17 01/14/17 02:09 02:39 WBC RBC Hgb Hct MCV MCH MCHC RDW Std Deviation Plt Count MPV Immature Gran % (Auto) Neut % (Auto) Lymph % (Auto) [place] % (Auto) Eos % (Auto) Baso % (Auto) Immature Gran # (Auto) Neut # (Auto) Lymph # (Auto) [place] # (Auto) Eos # (Auto) Baso # (Auto) PT INR PTT (Actin FS) D-Dimer Specimen Type ARTERIAL Sample Site R RADIAL pH 7.41 pCO2 54 H* pO2 84 HCO3 31.5 H Base Excess 8.4 H Oxyhemoglobin 96.1 ABG O2 Sat (Calculated) 12.6 L ABG O2 Saturation 98.6 ABG Carboxyhemoglobin 1.90 ABG Methemoglobin 0.6 [place] Test YES A-a O2 Difference -2.0 Total Hemoglobin 9.2 L Lactate 0.50 Blood Gas Modality ROOM AIR FiO2 % 21.0 Sodium Potassium Chloride Carbon Dioxide Anion Gap BUN Creatinine Estimated GFR/1.73 m2 BUN/Creatinine Ratio Glucose Calculated Osmolality Calcium Magnesium Total Bilirubin AST ALT Alkaline Phosphatase Creatine Kinase Troponin T [id number]-Vfmpsuryyzm Pept Total Protein Albumin Globulin Albumin/Globulin Ratio Plasma Lactate 0.8 Orders Category Date Time Status Cardiac Monitoring DIRECTED Care 01/14/17 01:54 Active Oxygen Therapy- ED Nursing DIRECTED Care 01/14/17 01:54 Active Saline Loc NOW Care 01/14/17 01:54 Active CHEST-2 VIEWS [RAD] Stat Exams 01/14/17 01:[address] HEAD W/O CONTRAST [CT] Stat Exams 01/14/17 02:14 Taken ABG [RESP] Routine Lab 01/14/17 02:39 Completed CBC WITH ELECTRONIC DIFF [HEME] Stat Lab 01/14/17 02:09 Completed CK PROFILE [SP CHEM] Stat Lab 01/14/17 02:09 Completed COMPREHENSIVE METABOLIC PANEL [CHEM] Stat Lab 01/14/17 02:09 Completed D-DIMER [CHEM] Stat Lab 01/14/17 02:09 Completed LACTATE, PLASMA [CHEM] Stat Lab 01/14/17 02:09 Completed MAGNESIUM [CHEM] Stat Lab 01/14/17 02:09 Completed PRO B-NATRIURETIC PEPTIDE Stat Lab 01/14/17 02:09 Completed PROTIME WITH INR [COAG] Stat Lab 01/14/17 02:09 Completed PTT [COAG] Stat Lab 01/14/17 02:09 Completed TROPONIN T Stat Lab 01/14/17 02:09 Completed Clonidine [Catapres] Med 01/14/17 02:15 Discontinued 0.1 mg PO NOW ONE Hydrocodone/APAP 7.5 mg/325 mg [[place]-7.5] Med 01/14/17 02:15 Discontinued 1 each PO NOW ONE EKG [EKG] Stat Ther 01/14/17 01:51 Ordered EKG [EKG] Stat Ther 01/14/17 01:54 Ordered Result Diagrams: 01/14/17 02:09 01/14/17 02:09 - EKG 1 Time of EKG reading by physician:: 01:48 EKG Read and Signed by:: Robin Ayala EKG Interpretation (*Must complete 3 of following elements*): Normal Rate: 75 Rhythm: NSR ST Wave: non-specific ST changes Comments: Abnormal ECG Departure - Departure Date of Disposition Decision: 01/14/17 Time of Disposition Decision: 04:14 DIAGNOSIS: Pneumonia, Dyspnea Disposition: ADMITTED INPATIENT 09 Certified Medical Emergency: Emergent Condition: Stable - Critical Care Note This patient required my direct & personal management of CC.: No Attestation - Physician/ PURNIMA Attestation The physician spent face to face time with patient:: Yes Advanced Practice Provider documentation review:: Supervising physician onsite and consulted in the evaluation and care of this patient. The physician did have a face to face encounter with the patient. This chart was documented by the indicated scribe, (Tatianna Kyle Scribe) and accurately reflects the services I performed and decisions made by me, Robin Ayala MD, as attested by the provider's signature.
[2017-01-14] MEDS: LASIX IV SCH ×2 (06:07→22:02)
[2017-01-14 06:15] LABS: INR 1.86; PROTIME 20.3 Seconds (9.2-11.7)
--- NOTE | 2017-01-14 07:22 | Diag Imaging Result Doc PS360 ---
EXAM: CT HEAD W/O CONTRAST INDICATION: sob/JUARES - BREAST CA TECHNIQUE: Dose reduction protocol was used. COMPARISON: 11/25/2016 FINDINGS: There is patchy low attenuation in the periventricular and subcortical white matter suggesting moderate microangiopathy, stable. 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 There is no definite acute infarct given the limited sensitivity of CT versus MRI. There is no discrete intracranial mass, mass effect, or intracranial hemorrhage. The surrounding soft tissues and bony structures are essentially unremarkable. IMPRESSION: Stable chronic changes but no evidence of acute intracranial pathology. Electronically signed by Pedro Luis Lomeli 01/14/2017 7:20 AM
--- NOTE | 2017-01-14 07:28 | Diag Imaging Result Doc PS360 ---
CHEST-2 VIEWS - 01/14/2017 INDICATION: CP TECHNIQUE: COMPARISON: 11/25/2016 FINDINGS: Stable right chest port in good position. There is grossly stable diffuse pulmonary vascular congestion. There is ill-defined left basilar infiltrate probably in the left lower lobe. There are trace pleural effusions seen as blunting of the posterior costophrenic angles. Heart size is borderline enlarged. IMPRESSION: Nonspecific findings. Small left basilar infiltrate may represent edema or pneumonia. Electronically signed by Dave Gamboa 01/14/2017 7:26 AM
--- NOTE | 2017-01-14 07:40 | HISTORY AND PHYSICAL ---
PRIMARY CARE PHYSICIAN: Nathan Lara MD. CHIEF COMPLAINT: Cough, shortness of breath for several days. HISTORY OF PRESENTING ILLNESS: A 76-year-old unfortunate female with a history of breast cancer, atrial fibrillation, coronary artery disease, hypertension, GERD, and AAA, who had presented to the emergency department with a complaint of cough and shortness of breath for the past several days. She states that the cough was productive of yellowish-type material, and she was not feeling well. She was evaluated in the ER. She had imaging done, which was consistent with pneumonia, as per ER physician. Subsequently, she will need admission for further management. At the time of my examination, she had denied any nausea, vomiting, diarrhea, chest pain, hemoptysis, but complained of shortness of breath and cough and not feeling well. PAST MEDICAL HISTORY: Includes breast cancer, atrial fibrillation, coronary artery disease, hyperlipidemia, hypertension, GERD. PAST SURGICAL HISTORY: Bilateral mastectomy, cataract surgery, hysterectomy. ALLERGIES: Latex, penicillin, sulfa. CURRENT MEDICATIONS: As listed in the medication reconciliation sheet. SOCIAL HISTORY: She is a former smoker. Denies any history of alcohol or illicit drug use. FAMILY HISTORY: No history of coronary artery disease. REVIEW OF SYSTEMS: Twelve point review of systems listed as in HPI. Other systems negative. PHYSICAL EXAMINATION: GENERAL: Cooperative, friendly female. She is resting comfortably. VITAL SIGNS: Temperature 97.6 degrees, pulse 74, respirations 17, blood pressure 191/117. HEENT: Atraumatic, normocephalic. Extraocular movements intact. PERRLA. NECK: No masses. CHEST: Bibasilar rales. CARDIOVASCULAR: Regular rate and rhythm. ABDOMEN: Soft. Positive bowel sounds. EXTREMITIES: Trace edema. NEUROLOGIC: She is awake, alert, oriented x3. GENITOURINARY: No bladder distention. SKIN: Warm. LABORATORIES AND STUDIES: WBC 11.19, hemoglobin 9.3, hematocrit 29.8, platelets 449,000. Sodium 142, potassium 3.9, chloride 101, CO2 30, BUN 6, creatinine 0.5, glucose is 126. ProBNP is 5122. ASSESSMENT: This is a 76-year-old female with a history of breast cancer, atrial fibrillation, coronary artery disease, hypertension, and abdominal aortic aneurysm, who had presented to the emergency department with several days' history of shortness of breath and a productive cough. She was evaluated in the ER. She had imaging done, which was suspicious for pneumonia. Subsequently, she will need hospitalization for further management. 1. Suspected pneumonia. 2. Breast cancer. 3. Atrial fibrillation. 4. Hypertension. PLAN: 1. We will admit patient to medical floor with telemetry. 2. We will check blood cultures, start patient on IV antibiotics. 3. Continue with gentle diuresis for possibility of pulmonary edema. 4. We will restart all home medications, including her anticoagulation that she is on for atrial fibrillation. 5. We will monitor blood pressure closely. 6. We will put patient on DVT prophylaxis with SCDs. 7. We will continue to follow and reassess. cc: Kristian Moran MD
[2017-01-14] MEDS: MERREM 1 GM in NS 50 ML IV SCH ×4 (07:41→22:22)
[2017-01-14] MEDS ORDERED: CYANOCOBALAMIN IM SCH (09:00)
[2017-01-14] MEDS: NEURONTIN PO SCH ×2 (09:23→22:00)
[2017-01-14] MEDS: ASPIRIN PO SCH (09:23)
[2017-01-14] MEDS: NORCO-7.5 PO PRN ×2 (09:23→15:20)
--- NOTE | 2017-01-14 09:26 | EKG Report ---
Test Performed on : 01/14/2017 01:48:03 AM Test Reason : SOB Blood Pressure : / mmHG Vent. Rate : 075 BPM Atrial Rate : 075 BPM P-R Int : 184 ms QRS Dur : 098 ms QT Int : 402 ms P-R-T Axes : 066 055 064 degrees QTc Int : 448 ms Normal sinus rhythm. Nonspecific ST abnormality Abnormal ECG When compared with ECG of 26-NOV-2016 01:53, No significant change was found Unconfirmed Result
[2017-01-14] MEDS: PRAVACHOL PO SCH (22:00)
[2017-01-14] MEDS: ZOLOFT PO SCH (22:00)
[2017-01-14] MEDS: TOPROL XL PO SCH (22:00)
[2017-01-14] MEDS: RESTORIL PO SCH (22:01)
[2017-01-14] MEDS: COUMADIN PO SCH (22:02)
[2017-01-14] MEDS: MORPHINE IV PRN (22:31)
[2017-01-15] MEDS: MORPHINE IV PRN ×3 (01:23→18:00)
[2017-01-15 06:24] LABS: MANUAL DIFF NEEDED? NO
[2017-01-15 06:27] LABS: BASO% 0.2 % (0.0-0.8); EOS# 0.47 X1000 (0.0-0.7); HEMATOCRIT 27.6 % (37.0-47.0); HEMOGLOBIN 8.4 g/dL (12.0-16.0); LYMPH% 14.9 % (20.5-51.1); MCH 27.1 PG (27-31); MCHC 30.4 g/dL (33-37); MONO# 0.76 X1000 (0.11-0.59); MONO% 8.1 % (1.7-9.3); NEUT% 71.8 % (42.2-75.2); PLT 396 X1000 (130-400)
[2017-01-15 06:32] LABS: INR 1.54; PROTIME 16.6 Seconds (9.2-11.7)
[2017-01-15 06:51] LABS: AGAP 4; BUN 10 mg/dL (8-22); CALCIUM 8.6 mg/dL (8.8-10.2); CHLORIDE 98 mmol/L (98-107); COSMO 278; POTASSIUM 3.8 mmol/L (3.5-5.1); SODIUM 140 mmol/L (136-145); TCO2 38 mmol/L (25-35)
[2017-01-15] MEDS: LASIX IV SCH (09:10)
[2017-01-15] MEDS: ASPIRIN PO SCH (09:10)
[2017-01-15] MEDS: NEURONTIN PO SCH ×2 (09:10→22:20)
--- NOTE | 2017-01-15 09:43 | Diag Imaging Result Doc PS360 ---
EXAM: CHEST-2 VIEWS INDICATION: hypoxia TECHNIQUE: 2 views COMPARISON: 01/14/2017 FINDINGS: Right chest port is in stable position. There is stable mild pulmonary venous congestion. The left basilar infiltrate has improved during the interval. Trace posterior effusions are unchanged. No new consolidations are appreciated. Cardiac silhouette is stable. IMPRESSION: Interval improvement of left basilar infiltrate. Essentially stable, otherwise. Electronically signed by Pedro Luis Lomeli 01/15/2017 9:40 AM
[2017-01-15] MEDS: MERREM 1 GM in NS 50 ML IV SCH ×2 (14:00→22:22)
--- NOTE | 2017-01-15 17:22 | PROGRESS NOTE ---
DATE: 01/15/2017 SUBJECTIVE: Patient has no focal complaints. OBJECTIVE: Blood pressure 105/55, heart rate 67, respiratory rate 18, temperature 98.0 degrees, afebrile otherwise.Cardiovascular: Regular rate and rhythm. Pulmonary: Bilateral breath sounds. Diminished at the bases. GI: Soft, nontender, nondistended. Bowel sounds are positive. LABORATORY DATA: White count is 9, hemoglobin and hematocrit 8 and 24, platelets of 396,000. Her basic was normal. PROBLEM LIST: 1. Putative pneumonia. Her infiltrate has essentially resolved which would argue against pneumonia but we will continue antibiotics for the time being. 2. Atrial fibrillation. Appears to be rate controlled. She is on Coumadin. INR is subtherapeutic. 3. Breast cancer. Currently undergoing chemotherapy. We will continue to follow. DISPOSITION: I think if she is stable and we can get her off oxygen, possibly home tomorrow. We will continue to follow. cc: Estrada Chiu MD
[2017-01-15] MEDS ORDERED: NORCO-7.5 PO PRN (20:11)
[2017-01-15] MEDS: DILAUDID IV PRN ×2 (20:21→23:11)
[2017-01-15] MEDS: ZOLOFT PO SCH (22:19)
[2017-01-15] MEDS: PRAVACHOL PO SCH (22:20)
[2017-01-15] MEDS: COUMADIN PO SCH (22:20)
[2017-01-15] MEDS: RESTORIL PO SCH (22:20)
[2017-01-15] MEDS: TOPROL XL PO SCH (22:21)
[2017-01-16] MEDS: MERREM 1 GM in NS 50 ML IV SCH ×2 (05:45→13:48)
[2017-01-16 07:20] LABS: HEMOGLOBIN 7.9 g/dL (12.0-16.0); MCH 27.6 PG (27-31); MCHC 30.4 g/dL (33-37); MCV 90.9 FL (81-99); MPV 8.2 FL (7.4-10.4); RBC 2.86 XMIL (4.2-5.4)
[2017-01-16 07:23] LABS: INR 1.3; PROTIME 13.9 Seconds (9.2-11.7)
[2017-01-16 07:36] LABS: AGAP 7; BUN 12 mg/dL (8-22); CALCIUM 8.2 mg/dL (8.8-10.2); CHLORIDE 100 mmol/L (98-107); COSMO 286; POTASSIUM 3.4 mmol/L (3.5-5.1); SODIUM 144 mmol/L (136-145); TCO2 37 mmol/L (25-35)
[2017-01-16 08:37] VITALS: BP 135/95
[2017-01-16] MEDS: DILAUDID IV PRN ×2 (08:44→13:45)
[2017-01-16] MEDS: NEURONTIN PO SCH (08:44)
[2017-01-16] MEDS: ASPIRIN PO SCH (08:44)
--- NOTE | 2017-01-16 15:02 | DISCHARGE SUMMARY ---
ADMISSION DATE: 01/14/2017 DISCHARGE DATE: 01/16/2017 HISTORY AND HOSPITAL COURSE: She presented with cough and shortness of breath for several days. A 77-year-old with a history of breast cancer, atrial fibrillation, coronary artery disease, hypertension, gastroesophageal reflux disease, and history of AAA. She presented to the emergency room, complained of cough, shortness of breath for the past several days. Cough was productive of yellowish-type material. She was not feeling well. Evaluated in the emergency room. Imaging done, consistent with pneumonia. She was admitted for further management. Denied any nausea, vomiting, diarrhea, chest pain, hemoptysis. She was admitted, given antibiotics, some bronchodilators, IV fluids. She showed steady improvement. Chest x-ray on 01/14: Nonspecific findings, small left basilar infiltrate that could be edema or pneumonia. Chest x-ray followup on 01/15: Interval improvement of left basilar infiltrate. She felt better clinically, and felt like she could go home on 01/16/2017. She has home oxygen already. DISCHARGE MEDICATIONS: She will be on her aspirin 81 mg a day. Cyanocobalamin, she gets 1000 mcg monthly. Gabapentin 300 mg b.i.d. Hydrocodone 10/325 q.6 hours p.r.n. Levaquin, she will stay on 750 mg of Levaquin, I believe daily, for another 7 days. Toprol-XL 100 mg at bedtime. Pravastatin 80 mg at bedtime. Zoloft 100 mg at bedtime. Restoril 30 mg p.o. at bedtime. She is on her Coumadin 4 mg a day. Note, her pro time was at 13.9, so we will follow up with her pro time. FOLLOWUP: Follow up with Dr. Lara. cc: Sanket Calderon MD
[2017-01-16] MEDS ORDERED: COUMADIN PO SCH (21:00)
== END 2017-01-16 16:08 | disposition home or self-care (01) ==
LOC: ED 01:50 → EDIPHOLD 05:07 → SUATTDRO 05:07 → 4N 11:07 → 3N 15:08
PROVIDERS: ATTEND Internal Medicine

== ENCOUNTER 2018-09-23 13:57 | Inpatient (IN) ==
--- NOTE | 2018-09-23 15:25 | Diag Imaging Result Doc PS360 ---
EXAM: WRIST COMPLETE LEFT INDICATION: fall, injury TECHNIQUE: 3 views COMPARISON: 03/17/2017 FINDINGS: The bones are osteopenic. There are stable degenerative change at the CMC joint of the thumb and several IP joints. There is no discrete fracture, dislocation, or significant intrinsic osseous lesion, otherwise. There is suggestion of mild soft tissue edema at the dorsum of the wrist. IMPRESSION: Mild soft tissue edema but no evidence of acute osseous abnormality. Electronically signed by Pedro Luis Lomeli 09/23/2018 3:23 PM
--- NOTE | 2018-09-23 15:27 | Diag Imaging Result Doc PS360 ---
EXAM: CHEST-1 VIEW INDICATION: cough TECHNIQUE: One view COMPARISON: 01/15/2017 FINDINGS: There is minimal stable chronic interstitial thickening bilaterally. The lungs are grossly clear, otherwise. There is no discrete pleural fluid collection or pneumothorax. The cardiomediastinal silhouette and central vasculature are grossly unremarkable. IMPRESSION: Minimal stable chronic interstitial thickening. No definite acute pathology by plain radiograph. Electronically signed by Pedro Luis Lomeli 09/23/2018 3:25 PM
[2018-09-23 15:51] LABS: BASO# 0.04 X1000 (0.0-0.2); BASO% 0.4 % (0.0-0.8); EOS# 0.34 X1000 (0.0-0.7); EOS% 3.1 % (0.0-10.0); HEMATOCRIT 38.3 % (37.0-47.0); HEMOGLOBIN 12.2 g/dL (12.0-16.0); IMM GRAN# 0.03 X1000 (0.0-0.04); IMM GRAN% 0.3 % (0.0-0.5); LYMPH# 1.62 X1000 (1.2-3.4); LYMPH% 14.7 % (20.5-51.1); MCH 27.1 PG (27-31); MCHC 31.9 g/dL (33-37); MCV 85.1 FL (81-99); MONO# 1.16 X1000 (0.11-0.59); MONO% 10.5 % (1.7-9.3); MPV 8.6 FL (7.4-10.4); NEUT# 7.83 X1000 (1.4-6.5); PLT 278 X1000 (130-400); RDW 14.1 % (11.5-14.5); WBC 11.02 X1000 (4.8-10.8)
--- NOTE | 2018-09-23 16:01 | Diag Imaging Result Doc PS360 ---
EXAM: CT HEAD W/O CONTRAST INDICATION: fall, takes coumadin TECHNIQUE: This exam was performed using automated exposure control, adjustment of mA or kV according to patient size, and/or use of iterative reconstruction technique. COMPARISON: 03/17/2017 FINDINGS: There is patchy low attenuation in the periventricular and subcortical white matter suggesting moderate microangiopathy, stable. There is a stable chronic lacunar infarct involving the caudate head on the left. There is no definite acute infarct given the limited sensitivity of CT versus MRI. There is no discrete intracranial mass, mass effect, or intracranial hemorrhage. The surrounding soft tissues and bony structures are essentially unremarkable. IMPRESSION: Stable chronic changes as described. No evidence of acute intracranial pathology. Electronically signed by Pedro Luis Lomeli 09/23/2018 3:58 PM
--- NOTE | 2018-09-23 16:11 | Diag Imaging Result Doc PS360 ---
EXAM: CT PELVIS W/O CONTRAST INDICATION: fall, trauma TECHNIQUE: This exam was performed using automated exposure control, adjustment of mA or kV according to patient size, and/or use of iterative reconstruction technique. COMPARISON: Conventional CT of the abdomen and pelvis dated 11/25/2016 FINDINGS: There are degenerative changes at the lower lumbar spine that are stable. There is no evidence of fracture, dislocation, or significant intrinsic osseous lesion involving the pelvis, hips, or sacrum. There is degenerative arthropathy at the symphysis pubis. There is an infrarenal abdominal aortic aneurysm that appears stable. There is uncomplicated diverticulosis coli. The intrapelvic structures are essentially unremarkable, otherwise. Surrounding soft tissues are unremarkable. IMPRESSION: No evidence of fracture involving the pelvis, sacrum, or hips. Electronically signed by Pedro Luis Lomeli 09/23/2018 4:09 PM
[2018-09-23 16:13] LABS: ALB/GLOB RATIO 0.9; ALBUMIN 3.4 g/dL (3.5-5.0); CALCIUM 8.7 mg/dL (8.8-10.2); CREATININE 1.3 mg/dL (0.5-0.9); POTASSIUM 2.8 mmol/L (3.5-5.1); TOTAL BILIRUBIN 0.37 mg/dL (0.20-1.00); TOTAL PROTEIN 7.3 g/dL (6.3-8.3)
[2018-09-23] MEDS ORDERED: KLOR-CON PO ONE (16:42)
[2018-09-23 18:39] LABS: URINE SOURCE CATH
[2018-09-23 18:44] LABS: BILIRUBIN URINE NEGATIVE (NEGATIVE); BLOOD URINE NEGATIVE (NEGATIVE); COLOR YELLOW; GLUCOSE URINE NEGATIVE (NEGATIVE); KETONE URINE NEGATIVE (NEGATIVE); LEUKOCYTES URINE LARGE (NEGATIVE); NITRITE URINE NEGATIVE (NEGATIVE); PH URINE 5.5; PROTEIN URINE TRACE mg/dL (NEGATIVE); SP GRAVITY URINE 1.014; TURBIDITY URINE HAZY (CLEAR); UROBILINOGEN URINE NORMAL (NORMAL)
[2018-09-23 18:45] LABS: UR EPITHELIAL CELLS <10 /HPF (<10); URINE BACTERIA NEGATIVE /HPF; URINE RBC <10 /HPF (<10); URINE WBC 20-40 /HPF (<10)
--- NOTE | 2018-09-23 18:54 | PROVIDER DOCUMENTATION ---
This chart was entered by Cammy Arizmendi Scribe, acting as scribe for Ran Moran MD. HPI-General Adult - General Chief Complaint: Fall Stated Complaint: FALL/RT LEG PAIN,NO APPETITE,ON BLOOD THINNER Time Seen by Provider: 09/23/18 14:15 Source: patient, other (caregiver) Allergies/Adverse Reactions: Patient Allergies Allergy/AdvReac Type Severity Reaction Status Date / Time latex Allergy RASH Verified 09/23/18 15:40 Penicillins Allergy Unknown Verified 09/23/18 15:40 Sulfa (Sulfonamide Allergy Unknown Verified 09/23/18 15:40 Antibiotics) Home Medications: Home Medication List Medication Instructions Recorded Confirmed Last Taken Type Pravastatin Sodium 80 mg PO QHS 01/21/14 01/14/17 01/13/17 20:00 History Temazepam [Restoril] 30 mg PO HS 01/21/14 01/14/17 01/13/17 20:00 History Cyanocobalamin 1,000 microgm IM Q30D #6 vial 09/25/16 01/14/17 12/31/16 05:00 Rx Gabapentin 300 mg PO BID 10/19/16 01/14/17 01/13/17 20:00 History Sertraline [Zoloft] 100 mg PO QHS 10/19/16 01/14/17 01/13/17 20:00 History Metoprolol Succinate [Toprol Xl] 100 mg PO QHS 12/29/16 01/14/17 01/13/17 20:00 History Hydrocodone Bit/Acetaminophen 1 each PO Q6HR #20 tablet 01/01/17 01/14/17 01/13/17 20:00 Rx [Hydrocodon-Acetaminophn 10-325] Aspirin 81 mg PO QAM 01/14/17 01/14/17 01/13/17 08:00 History Levofloxacin [Levaquin] 750 mg PO DAILY #5 tablet 01/16/17 Unknown Rx Warfarin [Coumadin] 4 mg PO QHS #30 tablet 01/16/17 Unknown Rx - History of Present Illness -Gen Adult Nature of Presenting Problems: 77 y/o female who is on Warfarin presents to the ED after fall while getting out of bed with complaint of left wrist and right groin pain. Caregiver states the patient has been weak and not acting like herself family thought this may be due to the recent addition of an unspecified sleeping pill so they discontinued this Tuesday. Location of Pain/Injury: reports: upper extremity (left wrist), generalized (weakness, AMS), other (right groin) Onset/Duration: reports: unsure (AMS), this morning (fall) Timing: reports: still present Modifying Factors: worse with: movement, palpation Associated Symptoms: reports: weakness, other (AMS) Similar Symptoms Previously?: No Recently seen or treated by another doctor?: No Review of Systems - Adult - REVIEW OF SYSTEMS - ADULT Constitutional: reports: other (AMS, generalized weakness). denies: chills, fever Eyes: reports: no symptoms reported Ears, Nose, Mouth & Throat: reports: no symptoms reported Cardiovascular: reports: no symptoms reported Respiratory: reports: cough. denies: hemoptysis, shortness of breath Gastrointestinal: denies: diarrhea, nausea, vomiting Genitourinary: denies: dysuria, discharge, hematuria Musculoskeletal: reports: joint pain (left wrist), other (right groin). denies: back pain, neck pain Integumentary: reports: no symptoms reported Neurological: reports: no symptoms reported Psychiatric: reports: no symptoms reported Endocrine: reports: no symptoms reported Hematologic/Lymphatic: reports: no symptoms reported Allergic/Immunologic: reports: no symptoms reported All Other Systems: Reviewed and Negative Past History - Adult - PAST MEDICAL HISTORY-ADULT Review of Records: reports: Old Records Reviewed, Nursing Assessment Review, Medications Reviewed Major Childhood Illnesses: reports: denies history Cardiovascular: reports: HTN, hyperlipidemia, AR Respiratory: reports: denies history Gastrointestinal: reports: GERD, other (PUD) Obstetrical/Gynecological: reports: other (breast ca) Genitourinary: reports: denies history Musculoskeletal: reports: arthritis Neurological: reports: denies history Endocrine/Immune: reports: denies history Other Conditions: reports: other (BREAST CANCER-IN REMISSION CURRENTLY.) - PRIOR SURGERIES/PROCEDURES Surgical/Procedure History: reports: cardiac stent, hysterectomy - PRIOR HOSPITALIZATIONS Prior Hospitalizations: reports: none - IMMUNIZATION STATUS Childhood Immunizations: See Nurse Assessment Flu Vaccine: See Nurse Assessment - FAMILY HISTORY Family History: reviewed, not pertinent - SOCIAL HISTORY Smoking: other (former smoker) Substance Use: denies Living Situation: family Physical Exam-General - PHYSICAL EXAM-ADULT Initial Vital Signs Reviewed: Yes - CONSTITUTIONAL General Appearance: alert, obese - EYES Eyes: PERRL/EOMI, pink conjunctivae - HEAD, EARS, NOSE, MOUTH & THROAT HENMT: normocephalic/atraumatic, moist mucous membranes, other (poor dentition, missing teeth) - NECK Neck: supple - RESPIRATORY Respiratory: lungs clear, no respiratory distress, no accessory muscle use. negative: rales, rhonchi, wheezing - CARDIOVASCULAR Cardiovascular: regular rate, rhythm, no gallop, no JVD - GASTROINTESTINAL (ABDOMEN) Abdominal Exam: normal bowel sounds, soft, other (suprapubic tenderness). negative: guarding, rebound - MUSCULOSKELETAL Back Exam: no CVA tenderness, no vertebral tenderness Extremity: no pedal edema - SKIN Integumentary: normal color, warm/dry Progress - PLAN OF CARE/RESULTS Progress/Plan/Lab Results: Vital Signs - 8 hr 09/23/18 14:01 Temperature 97.0 F L Pulse Rate 71 Respiratory Rate 16 Blood Pressure 184/105 O2 Sat by Pulse Oximetry 95 Result Diagrams: 09/23/18 15:37 09/23/18 15:37 - XRAY 1 XRAY Study: Chest (EXAM: CHEST-1 VIEW INDICATION: cough TECHNIQUE: One view COMPARISON: 01/15/2017 FINDINGS: There is minimal stable chronic interstitial thickening bilaterally. The lungs are grossly clear, otherwise. T here is no discrete pleural fluid collection or pneumothorax. The cardiomediastinal silhouette and central vasculature are grossly unremarkable. IMPRESSION: Minimal stable chronic interstitial thickening. No definite acute pathology by plain radiograph. Electronically signed by Pedro Luis Lomeli 09/23/2018 3:25 PM) 2 XRAY: Left XRAY Study: Wrist (EXAM: WRIST COMPLETE LEFT INDICATION: fall, injury TECHNIQUE: 3 views COMPARISON: 03/17/2017 FINDINGS: The bones are osteopenic. There are stable degenerative change at the CMC joint of the thumb and several IP joints. There is no discrete fracture, dislocation, or significant intrinsic osseous lesion, otherwise. There is suggestion of mild soft tissue edema at the dorsum of the wrist. IMPRESSION: Mild soft tissue edema but no evidence of acute osseous abnormality. Electronically signed by Pedro Luis Lomeli 09/23/2018 3:23 PM) - CT/MRI 1 CT Study: Pelvis (EXAM: CT PELVIS W/O CONTRAST INDICATION: fall, trauma TECHNIQUE: This exam was performed using automated exposure control, adjustment of mA or kV according to patient size, and/or use of iterative reconstruction technique. COMPARISON: Conventional CT of the abdomen and pelvis dated 11/25/2016 FINDINGS: There are degenerative changes at the lower lumbar spine that are stable. There is no evidence of fracture, dislocation, or significant intrinsic osseous lesion involving the pelvis, hips, or sacrum. There is degenerative arthropathy at the symphysis pubis. There is an infrarenal abdominal aortic aneurysm that appears stable. There is uncomplicated divertic ulosis coli. The intrapelvic structures are essentially unremarkable, otherwise. Surrounding soft tissues are unremarkable. IMPRESSION: No evidence of fracture involving the pelvis, sacrum, or hips. Electronically signed by Pedro Luis Lomeli 09/23/2018 4:09 PM) 2 CT Study: Head ( EXAM: CT HEAD W/O CONTRAST INDICATION: fall, takes coumadin TECHNIQUE: This exam was performed using automated exposure control, adjustment of mA or kV according to patient size, and/or use of iterative reconstruction technique. COMPARISON: 03/17/2017 FINDINGS: There is patchy low attenuation in the periventricular and subcortical white matter suggesting moderate microangiopathy, stable. There is a stable chronic lacunar infarct involving the caudate head on the left. There is no definite acute infarct given the limited sensitivity of CT versus MRI. There is no discrete intracranial mass, mass effect, or intracranial hemorrhage. The surrounding soft tissues and bony structures are essentially unremarkable. IMPRESSION: Stable chronic changes as described. No evidence of acute intracranial pathology. Electronically signed by Pedro Luis Lomeli 09/23/2018 3:58 PM) - CONSULTS/PCP/HOSPITALIST Notification #1 *Consult/PCP/Hospitalist*: Summer for Hospitalist Time Discussed: 18:53 Consult Disposition: Will see in ED, Admit Departure - Departure Date of Disposition Decision: 09/23/18 Time of Disposition Decision: 18:49 DIAGNOSIS: UTI (urinary tract infection), Hypokalemia, Weakness Disposition: ADMITTED INPATIENT 09 Certified Medical Emergency: Emergent Condition: Fair Referrals and Follow-Ups: Rosalio Rodriguez MD [Primary Care Provider] - - Critical Care Note This patient required my direct & personal management of CC.: No Attestation - Physician/ PURNIMA Attestation Patient care was provided by Advanced Practice Provider:: No The physician spent face to face time with patient:: Yes Advanced Practice Provider documentation review:: Supervising physician onsite and consulted in the evaluation and care of this patient. The physician did have a face to face encounter with the patient. This chart was documented by the indicated scribe, (Cammy Arizmendi, Tad) and accurately reflects the services I performed and decisions made by me, Ran Moran MD, as attested by the provider's signature.
[2018-09-23] MEDS ORDERED: LEVAQUIN 500 MG/D5W 500 MG/100 ML IVPB IV SCH (19:00)
[2018-09-23] MEDS ORDERED: NS 1,000 ML IV ONE ×2 (19:27→19:29)
[2018-09-23] MEDS ORDERED: TYLENOL PO PRN (19:30)
[2018-09-23] MEDS ORDERED: ZOFRAN IV PRN (19:30)
[2018-09-23] MEDS ORDERED: KLOR-CON ONE (22:00)
[2018-09-23] MEDS: ROCEPHIN 1 GM in NS 50 ML IV SCH (22:10)
[2018-09-23 22:19] LABS: INR 1.81; PROTIME 22.3 Seconds (11.0-16.0)
[2018-09-23] MEDS: NORCO-7.5 PO PRN (23:19)
[2018-09-24 01:10] LABS: BASO# 0.03 X1000 (0.0-0.2); BASO% 0.3 % (0.0-0.8); EOS# 0.27 X1000 (0.0-0.7); EOS% 2.3 % (0.0-10.0); HEMATOCRIT 33.3 % (37.0-47.0); HEMOGLOBIN 10.7 g/dL (12.0-16.0); IMM GRAN# 0.02 X1000 (0.0-0.04); IMM GRAN% 0.2 % (0.0-0.5); LYMPH# 1.09 X1000 (1.2-3.4); LYMPH% 9.4 % (20.5-51.1); MCH 27.3 PG (27-31); MCHC 32.1 g/dL (33-37); MCV 84.9 FL (81-99); MONO# 1.03 X1000 (0.11-0.59); MONO% 8.9 % (1.7-9.3); MPV 8.7 FL (7.4-10.4); NEUT# 9.13 X1000 (1.4-6.5); NEUT% 78.9 % (42.2-75.2); PLT 301 X1000 (130-400); RBC 3.92 XMIL (4.2-5.4); WBC 11.57 X1000 (4.8-10.8)
[2018-09-24 01:18] LABS: INR 1.82; PROTIME 22.4 Seconds (11.0-16.0)
[2018-09-24 01:34] LABS: CALCIUM 8.4 mg/dL (8.8-10.2); CREATININE 1.1 mg/dL (0.5-0.9); POTASSIUM 3.1 mmol/L (3.5-5.1)
--- NOTE | 2018-09-24 01:34 | HISTORY AND PHYSICAL ---
PRIMARY CARE PROVIDER: Rosalio Rodriguez. CHIEF COMPLAINT: Right leg pain, fall, no appetite. HISTORY OF PRESENT ILLNESS: Ms. Terrazas is a 77-year-old female who is on daily Coumadin related to atrial fibrillation. She fell while getting out of bed. She had a complaint of left wrist, right groin, right leg pain. Caregiver stated in the ER that the patient had been weak and not acting like herself. The family had thought that it was due to a recent addition to an unspecified sleeping pill so they discontinued that medication on Tuesday. The patient was oriented to person, place, somewhat to situation, disoriented to time. All x-rays were negative other than soft tissue edema. There was no evidence of fractures to the pelvis, wrist. CT of her head showed stable chronic changes. Chest x-ray was grossly unremarkable. Urine was leukocyte esterase positive. She will be admitted for further evaluation and treatment of her urinary tract infection. PAST MEDICAL HISTORY: Atrial fibrillation, breast cancer, coronary artery disease, hyperlipidemia, hypertension, GERD. PREVIOUS SURGICAL HISTORY: Bilateral mastectomy, cataract surgery, hysterectomy, AAA repair. SOCIAL HISTORY: No tobacco, alcohol or illicit drugs. FAMILY HISTORY: Notable for heart disease, diabetes, thyroid disease, breast cancer and asthma. ALLERGIES: Latex, penicillin and sulfa. HOME MEDICATION: Pravastatin 80 mg p.o. at bedtime, Neurontin 300 mg p.o. b.i.d, Zoloft 100 mg p.o. at bedtime, metoprolol succinate 100 mg p.o. at bedtime, Byers 10 one q.6 p.r.n., aspirin 81 mg p.o. q.a.m., warfarin 4 mg p.o. at bedtime, Lasix 40 mg p.o. b.i.d., Arimidex 1 mg p.o. daily. REVIEW OF SYSTEMS: Fourteen-point review of systems conducted with the patient. Pertinent positives listed above in the HPI. All other systems reviewed and found to be negative. PHYSICAL EXAMINATION: VITAL SIGNS: Temperature 97, pulse 78, respirations 18, blood pressure 122/65, oxygen saturation 95% on 2 L nasal cannula. GENERAL: A 77-year-old female oriented to person, place, somewhat to situation, disoriented to time. She is in no acute distress. HEENT: Head is atraumatic, normocephalic. Pupils equal, round, reactive to light. Extraocular eye movement is intact. Poor dentition noted. Oral mucosa is dry. NECK: Supple. No JVD. No thyromegaly. Trachea is midline. No cervical lymphadenopathy. CARDIAC: S1, S2 appreciated. Irregularly irregular. No murmurs, gallops, rubs. LUNGS: Clear to auscultation bilaterally. No rhonchi, wheezes, rales. Symmetric rise and fall with respirations. ABDOMEN: Soft, nondistended, nontender. Bowel sounds present all 4 quadrants, normoactive. No pulsatile mass. No organomegaly. EXTREMITIES: No clubbing or cyanosis. Trace edema bilateral lower extremities. Two-plus pedal pulses. GENITOURINARY: No bladder distention. Patient voids. Otherwise deferred. NEUROLOGICAL: Alert and oriented to person, place, somewhat to situation. Disoriented to time. No focal motor deficits. Otherwise nonfocal examination. DIAGNOSTIC DATA: Chest x-ray: Chronic interstitial thickening. Wrist x-ray: Mild soft tissue edema. No acute fracture. CT of the pelvis: No fracture of the pelvis, sacrum or hips. CT of the head: Several chronic changes. LABORATORY DATA: WBC 11.02. Hemoglobin 12.2. Hematocrit 38.3. Platelet count 278. INR 1.81. Sodium 138. Potassium 2.8. Chloride 94. Carbon dioxide 33. BUN 19. Creatinine 1.3. Glucose 103. Urine: Leukocyte esterase positive, 20-40 WBCs. ASSESSMENT AND PLAN: 1. Probable urinary tract infection. We will treat with Rocephin 1 g IV daily. 2. Fluid volume depletion with mild acute kidney injury. We will give normal saline 1 L over the next 12 hours. Recheck laboratory data. 3. Hypokalemia. Replace and recheck. 4. Atrial fibrillation with chronic Coumadin anticoagulation. INR will be checked daily. Continue Coumadin. Continue metoprolol. Further recommendations per patient clinical course. Dictated by TESSA Vázquez for Kristian Moran MD cc: TESSA Vázquez MD Micah A. Howard, MD
[2018-09-24] MEDS: TESSALON PO SCH ×4 (03:28→21:04)
[2018-09-24] MEDS: NORCO-7.5 PO PRN ×2 (05:16→11:47)
[2018-09-24 07:41] LABS: BASO# 0.02 X1000 (0.0-0.2); BASO% 0.2 % (0.0-0.8); EOS# 0.37 X1000 (0.0-0.7); HEMOGLOBIN 10.5 g/dL (12.0-16.0); IMM GRAN# 0.02 X1000 (0.0-0.04); IMM GRAN% 0.2 % (0.0-0.5); LYMPH# 1.35 X1000 (1.2-3.4); LYMPH% 14.7 % (20.5-51.1); MCH 27.3 PG (27-31); MCHC 31.8 g/dL (33-37); MCV 85.7 FL (81-99); MONO# 0.89 X1000 (0.11-0.59); MONO% 9.7 % (1.7-9.3); MPV 8.6 FL (7.4-10.4); NEUT# 6.55 X1000 (1.4-6.5); NEUT% 71.2 % (42.2-75.2); PLT 300 X1000 (130-400); RBC 3.85 XMIL (4.2-5.4); RDW 13.9 % (11.5-14.5)
[2018-09-24 07:47] LABS: INR 1.7; PROTIME 21.2 Seconds (11.0-16.0)
[2018-09-24 08:01] LABS: CALCIUM 8.6 mg/dL (8.8-10.2); POTASSIUM 3.1 mmol/L (3.5-5.1)
[2018-09-24] MEDS: NEURONTIN PO SCH ×2 (09:11→21:22)
[2018-09-24] MEDS: ARIMIDEX PO SCH (09:11)
[2018-09-24] MEDS: ASPIRIN PO SCH (09:11)
[2018-09-24] MEDS: LASIX PO SCH ×2 (09:11→21:04)
--- NOTE | 2018-09-24 14:52 | PROGRESS NOTE ---
DATE: 09/24/2018 Ms. Terrazas feels a little bit better. She is sore on her left side of her neck, left shoulder. She has about a 5 cm area of ecchymosis there. She had fallen and not had any broken bones but was sore, particular left side. Family was a little concerned about her weight being a little higher than it was at home. I do not appreciate edema or any sign of ascites so she was brought in yesterday evening. Right leg pain after fall. No appetite. She is a patient of Dr. Rosalio Rodriguez 77-year-old female who is on daily Coumadin related to atrial fibrillation. She fell while getting out of bed and complained of left wrist and right groin, right leg pain. Caregiver in the ER was with her said she has been weak and not acting herself. Family thought that it was due to recent addition of unspecified sleeping pill so they discontinued the medication on Tuesday. The patient was oriented on presentation to person, place and time and somewhat to the situation but she was disoriented to time for a while. All x-rays were negative other than the soft tissue edema. No evidence of any fracture in the pelvis, wrist. CT of the head showed stable chronic changes. Chest x-ray was grossly unremarkable. PAST MEDICAL HISTORY: History of atrial fibrillation, history of breast cancer, history of coronary artery disease, hyperlipidemia, hypertension, gastroesophageal reflux disease, she has bilateral mastectomy, cataract surgery, hysterectomy and abdominal aortic aneurysm repair. Today she said she felt better. She is still kind of sore, especially in the left shoulder. Temperature 97.7 degrees, pulse 74, respirations 18, blood pressure 100/77. Pupils are equal and round. Lungs are clear in all lung badillo. Cardiovascular, regular rhythm, rate without murmur or S3. LABS: White count she came in was 11,000, yesterday it was 9200, hematocrit is 33, platelet count 300,000. Sodium 143, potassium 3.1, chloride 98, bicarb is 35, BUN 15, creatinine 1.0. Chest x- ray unremarkable. ASSESSMENT AND PLAN: 1. Probable urinary tract infection. There was some sediment, treating with Rocephin. 2. She seemed to be volume depleted when she came in so they gave her a liter of saline. 3. Hypokalemia supplemented. 4. Atrial fibrillation on chronic Coumadin. Her rate appears controlled and pro time was 21, which is therapeutic. REVIEW OF ORDERS: She is on metoprolol 100 mg at bedtime, Pravachol 80 mg at bedtime, Zoloft 100 mg at bedtime, Coumadin 4 mg at bedtime, Arimidex 1 mg daily, aspirin 81 mg a day, Tessalon Perles 200 mg t.i.d., Lasix 40 mg p.o. b.i.d., Neurontin 300 mg p.o. b.i.d., hydrocodone 7.5 mg q.6 hours, getting ceftriaxone 1 g q.24 hours. Looking back to see if we ever had an echocardiogram. She has had an abdominal ultrasound back in July and that was stable abdominal aortic aneurysm. Abdominal aortic aneurysm is stable, measures 3.6 x 4.5, AP and lateral dimensions, might be worth getting an echocardiogram on her and looking at her left ventricular function may help deciding on whether she needs Lasix or not. Looking back I do see an echocardiogram from 09/20/2016 she had aortic valve sclerosis, borderline concentric left ventricular hypertrophy with an ejection fraction of 50-55%. cc: Sanket Calderon MD
[2018-09-24] MEDS ORDERED: PRAVACHOL PO SCH (21:00)
[2018-09-24] MEDS ORDERED: TOPROL XL PO SCH (21:00)
[2018-09-24] MEDS ORDERED: ZOLOFT PO SCH (21:00)
[2018-09-24] MEDS ORDERED: COUMADIN PO SCH (21:00)
[2018-09-24] MEDS: ROCEPHIN 1 GM in NS 50 ML IV SCH (21:05)
[2018-09-25 07:14] LABS: INR 1.76; PROTIME 21.9 Seconds (11.0-16.0)
[2018-09-25] MEDS: TESSALON PO SCH ×2 (10:00→15:00)
[2018-09-25] MEDS: NEURONTIN PO SCH (10:01)
[2018-09-25] MEDS: ASPIRIN PO SCH (10:01)
[2018-09-25] MEDS: LASIX PO SCH (10:01)
[2018-09-25] MEDS: ARIMIDEX PO SCH (10:02)
[2018-09-25 11:50] VITALS: BP 133/70
--- NOTE | 2018-09-25 14:31 | DISCHARGE SUMMARY ---
ADMISSION DATE: 09/23/2018 DISCHARGE DATE: 09/25/2018 HISTORY OF PRESENT ILLNESS: This is a 77-year-old who presented and admitted on 09/23/2018, a patient of Dr. Rosalio Rodriguez, on daily Coumadin related to atrial fibrillation. She fell while getting out of bed. Complained of left wrist, right groin, and right leg pain. Caregiver stated in the emergency room that she was weak and not acting herself for the last couple days. Due to the recent accident, they wanted her put in and evaluated real well. They did a CT scan of the pelvis and wrist. There was no evidence of any fractures. Also, CT of the head showed no new acute injury. She is sore, sore in her left shoulder, but able to ambulate and get up, and breathing comfortably. PAST MEDICAL HISTORY: 1. Atrial fibrillation. 2. Breast cancer. 3. Coronary artery disease. 4. Hyperlipidemia. 5. Hypertension. 6. Gastroesophageal reflux disease. PREVIOUS SURGICAL HISTORY: 1. Bilateral mastectomy. 2. Cataract surgery. 3. Hysterectomy. 4. AAA repair in the past. HOSPITAL COURSE: She had some sediment. I am not sure if she had any symptoms. We treated her for a urinary tract infection with Rocephin 1 g daily. She felt she had a little volume depletion and gave her some IV fluids. Her potassium is low and that was supplemented. She has a history of atrial fibrillation. Rate remained well controlled. She appeared to predominantly be in sinus rhythm and she was ready go home. [place] she could go home on 09/25/2018. DISCHARGE MEDICATIONS: She will be on her Arimidex 1 mg daily, aspirin 81 mg a day, cyanocobalamin 1000 mcg every month, Cardizem 180 mg daily, Lasix 40 mg twice a day, gabapentin 300 mg b.i.d., Apresoline 25 mg b.i.d. She has hydrocodone that she was taking at home at 10 mg q.6 hours and she can have whatever is left over. I am not going to give her a new prescription for that. She also was finishing out Levaquin 750 mg daily. Toprol-XL 100 mg at bedtime, pravastatin 80 mg at bedtime, Zoloft 200 mg at bedtime, Restoril 30 mg at bedtime, Coumadin was 4 mg at bedtime. Note that her prothrombin time was therapeutic and so did not make any adjustments on her Coumadin. Prothrombin time was 21, INR was 1.76. FOLLOWUP: She will follow up with the primary care physician. cc: Sanket Calderon MD
[2018-09-25] MEDS: NORCO-7.5 PO PRN (17:34)
== END 2018-09-25 18:20 | disposition home health service (06) | DRG 690 ==
LOC: ED 13:57 → SUATTDRO 21:24 → 3N 21:24
PROVIDERS: ATTEND Emergency Medicine
CPT/HCPCS: 51701; 70450; 71010; 71045; 72192; 73110; 80048; 80053; 81001; 83735; 84443; 85025; 85610; 96365; 97162; 97530; 99285; A9270; J0696; J7030; P9612; S0170

== ENCOUNTER 2018-11-26 15:39 | Inpatient (IN) ==
--- NOTE | 2018-11-26 15:57 | PROVIDER DOCUMENTATION ---
HPI-General Adult - General Chief Complaint: Shortness of Breath Stated Complaint: SOB Time Seen by Provider: 11/26/18 15:51 Source: patient, family Allergies/Adverse Reactions: Patient Allergies Allergy/AdvReac Type Severity Reaction Status Date / Time latex Allergy RASH Verified 09/23/18 15:40 oxycodone Allergy Unknown Verified 11/26/18 16:05 Penicillins Allergy Unknown Verified 09/23/18 15:40 Sulfa (Sulfonamide Allergy Unknown Verified 09/23/18 15:40 Antibiotics) Home Medications: Home Medication List Medication Instructions Recorded Confirmed Last Taken Type Pravastatin Sodium 80 mg PO QHS 01/21/14 11/26/18 01/13/17 20:00 History Temazepam [Restoril] 15 mg PO HS 01/21/14 11/26/18 01/13/17 20:00 History Cyanocobalamin 1,000 microgm IM Q30D #6 vial 09/25/16 01/14/17 12/31/16 05:00 Rx Gabapentin 300 mg PO BID 10/19/16 11/26/18 01/13/17 20:00 History Sertraline [Zoloft] 100 mg PO QHS 10/19/16 11/26/18 01/13/17 20:00 History Aspirin 81 mg PO QAM 01/14/17 11/26/18 01/13/17 08:00 History Anastrozole [Arimidex] 1 mg PO DAILY 09/23/18 11/26/18 Unknown History Diltiazem HCl [Cardizem Cd] 180 mg PO DAILY 09/23/18 11/26/18 Unknown History Furosemide [Lasix] 40 mg PO BID 09/23/18 11/26/18 Unknown History Hydralazine [Apresoline] 25 mg PO BID 09/24/18 11/26/18 Unknown History Hydrocodone Bit/Acetaminophen 1 ea PO Q6HR PRN 11/26/18 11/26/18 Unknown History [Hydrocodon-Acetaminophn 10-325] Metoprolol Tartrate 100 mg PO DAILY 11/26/18 11/26/18 Unknown History Warfarin [Coumadin] 2 mg PO DIRECTED 11/26/18 11/26/18 Unknown History Warfarin [Coumadin] 4 mg PO DIRECTED 11/26/18 11/26/18 Unknown History - History of Present Illness -Gen Adult Nature of Presenting Problems: [id number] presents to the ER via EMS with c/o increasing SOB over the last few da ys. EMS states home health nurse said patient's O2 drops with exertion. EMS states that O2 was 90% on arrival on 3L NC. Patient exhibits SOB with audible wheezing and O2 sats dropped to 85% when she was moved to from stretcher to bed. Patient was oriented to person and place. Edema noted to bilateral lower extremities and orbital edema was noted. Patient c/o of abd tenderness in the LUQ on palpation. Location of Pain/Injury: reports: abdomen (LUQ) Onset/Duration: reports: 4 days ago Timing: reports: getting worse Associated Symptoms: reports: cough, shortness of breath Similar Symptoms Previously?: No Recently seen or treated by another doctor?: No Review of Systems - Adult - REVIEW OF SYSTEMS - ADULT Constitutional: reports: see HPI, fatique. denies: chills, fever Eyes: reports: no symptoms reported. denies: decreased vision, blurred vision Ears, Nose, Mouth & Throat: reports: no symptoms reported. denies: sinus problem, hoarseness, throat pain, throat swelling Cardiovascular: reports: see HPI, irregular heart rate, orthopnea. denies: chest pain Respiratory: reports: see HPI, cough, dyspnea on exertion, shortness of breath, wheezing Gastrointestinal: reports: abdominal pain (LUQ) Genitourinary: reports: no symptoms reported Musculoskeletal: reports: no symptoms reported Integumentary: reports: no symptoms reported Neurological: reports: no symptoms reported Psychiatric: reports: no symptoms reported Endocrine: reports: no symptoms reported Hematologic/Lymphatic: reports: no symptoms reported Allergic/Immunologic: reports: no symptoms reported All Other Systems: Reviewed and Negative Past History - Adult - PAST MEDICAL HISTORY-ADULT Review of Records: reports: Old Records Reviewed, Nursing Assessment Review, Medications Reviewed, Social history reviewed & non-contributory. Major Childhood Illnesses: reports: denies history Cardiovascular: reports: HTN, hyperlipidemia, HI Respiratory: reports: denies history Gastrointestinal: reports: GERD, other (PUD) Obstetrical/Gynecological: reports: other (breast ca) Genitourinary: reports: denies history Musculoskeletal: reports: arthritis Neurological: reports: denies history Endocrine/Immune: reports: denies history Other Conditions: reports: other (BREAST CANCER-IN REMISSION CURRENTLY.) - PRIOR SURGERIES/PROCEDURES Surgical/Procedure History: reports: cardiac stent, hysterectomy - PRIOR HOSPITALIZATIONS Prior Hospitalizations: reports: none - IMMUNIZATION STATUS Childhood Immunizations: See Nurse Assessment Flu Vaccine: See Nurse Assessment - FAMILY HISTORY Family History: reviewed, not pertinent - SOCIAL HISTORY Smoking: denies Substance Use: denies Living Situation: family Physical Exam-General - PHYSICAL EXAM-ADULT Initial Vital Signs Reviewed: Yes - CONSTITUTIONAL General Appearance: appears well, alert, no apparent distress - EYES Eyes: PERRL/EOMI, pink conjunctivae, other (facial and orbital edema) - HEAD, EARS, NOSE, MOUTH & THROAT HENMT: normocephalic/atraumatic, moist mucous membranes, normal ENT inspection, TMs normal - NECK Neck: non-tender, full range of motion, supple - RESPIRATORY Respiratory: respiratory distress (mild), decreased breath sounds, accessory muscle use, rhonchi, wheezing - CARDIOVASCULAR Cardiovascular: irregularly irregular, other - GASTROINTESTINAL (ABDOMEN) Abdominal Exam: distended, guarding - LYMPHATIC Lymphatic: no adenopathy - MUSCULOSKELETAL Back Exam: normal inspection, no CVA tenderness Extremity: pedal edema, swelling (BLE) - SKIN Integumentary: pallor - NEUROLOGIC Neurologic: no motor/sensory deficits - PSYCHIATRIC Psych/Mental Status: oriented x 3 Progress - PLAN OF CARE/RESULTS Progress/Plan/Lab Results: Orders Category Date Time Status Cardiac Monitoring DIRECTED Care 11/26/18 15:33 Active Oxygen Therapy- ED Nursing DIRECTED Care 11/26/18 15:33 Active Saline Loc NOW Care 11/26/18 15:33 Active CHEST-1 VIEW [RAD] Stat Exams 11/26/18 15:34 Ordered ABG [RESP] Stat Lab 11/26/18 15:50 Ordered CBC WITH ELECTRONIC DIFF [HEME] Stat Lab 11/26/18 15:33 Uncollected CK PROFILE [SP CHEM] Stat Lab 11/26/18 15:33 Uncollected COMPREHENSIVE METABOLIC PANEL [CHEM] Stat Lab 11/26/18 15:33 Uncollected PRO B-NATRIURETIC PEPTIDE Stat Lab 11/26/18 15:33 Uncollected PROTIME WITH INR [COAG] Stat Lab 11/26/18 15:33 Uncollected PTT [COAG] Stat Lab 11/26/18 15:33 Uncollected TROPONIN T Stat Lab 11/26/18 15:33 Uncollected CP/SOB/Palp >45 yrs of Age Stat Oth 11/26/18 15:33 Ordered EKG [EKG] Stat Ther 11/26/18 15:33 Ordered Result Diagrams: 11/26/18 16:33 - XRAY 1 XRAY Study: Chest Impression: Abnormal (COMMENT: The inspiration is slightly better than on 09/23/2018. There is increased interstitial markings which are somewhat worse. This is worse than on 01/15/2017. IMPRESSION: Mild interstitial pulmonary edema.), See EMR Report Departure - Departure Date of Disposition Decision: 11/26/18 Time of Disposition Decision: 16:54 DIAGNOSIS: Acute respiratory distress, COPD exacerbation, CHF exacerbation Disposition: ADMITTED INPATIENT 09 Certified Medical Emergency: Emergent Condition: Critical Additional Freetext Instructions: ED Follow Up Instructions: You have been treated by a care provider in the Emergency Department. These instructions are being provided to you so you can have an understanding of how to care for yourself upon discharge. Upon discharge from the Emergency Dep artment, you are responsible for making arrangements for follow-up care by a physician of your choice. Take all prescribed medications as directed. Return to the Emergency Department immediately for any new or worsening symptoms. You may call the Physician Referral phone number at [phone] to obtain a list of Physicians who are taking new patients. Referrals and Follow-Ups: Rosalio Rodriguez MD [Primary Care Provider] - - Critical Care Note This patient required my direct & personal management of CC.: Yes Total Time (mins): 45 Critical Care Statement: This patient required my direct personal management to treat or rule out processes, the absence of which, could potentiallly result in sudden, clinically significant life or limb threatening deterioration. Attestation - Physician/ PURNIMA Attestation Patient care was provided by Advanced Practice Provider:: Yes Advanced Practice Provider:: Jose Lemon Advanced Practice Provider documentation review:: The Mid-level provider documentation, treatment plan and medical decision making was reviewed by the physician who agrees with all treatment and medical decision making by the MLP. The physician spent face to face time with patient:: No Advanced Practice Provider documentation review:: Supervising physician onsite and consulted in the evaluation and care of this patient. The physician did not have a face to face encounter with the patient.
--- NOTE | 2018-11-26 16:14 | Diag Imaging Result Doc PS360 ---
EXAM: CHEST-1 VIEW 11/26/2018 HISTORY: SOB TECHNIQUE: AP portable upright at 0404 COMMENT: The inspiration is slightly better than on 09/23/2018. There is increased interstitial markings which are somewhat worse. This is worse than on 01/15/2017. IMPRESSION: Mild interstitial pulmonary edema. Electronically signed by Jared Stafford 11/26/2018 4:12 PM
[2018-11-26] MEDS ORDERED: LASIX IV ONE (16:18)
[2018-11-26 16:19] LABS: BE 9.3 mmoll (-3.0-3.0); BLOOD TYPE ARTERIAL; HCO3-(ACT) 32.1 mmoll (20.0-26.0); PO2(98.6) 72 mmHg (60-100); SAMPLE BLOOD; SAO2 97.9 % (95.0-100.0); THB 11.8 g/dL (11.5-17.4); pH(98.6) 7.43 (7.35-7.45)
[2018-11-26 16:20] LABS: ALLEN TEST NO; METHB 1.2 % (0.0-1.5); O2(CT) 15.8 mL/dL (15.0-23.0); O2HB 94.8 % (95.0-99.0)
[2018-11-26 16:21] LABS: MODALITY CANNULA
[2018-11-26 16:22] LABS: PCO2(98.6) 53 mmHg (35-45)
--- NOTE | 2018-11-26 16:41 | ED EKG INTERP ---
This chart was entered by Dari Gonzales Scribe, acting as scribe for Juan Manuel Evans MD. EKG Interpretation - EKG Time of EKG reading by physician:: 16:39 EKG Read and Signed by:: Juan Manuel Evans EKG Interpretation (*Must complete 3 of following elements*): Normal Rate: 72 Rhythm: normal sinus rhtyhm Casey: normal QRS: normal Attestation - Physician/ PURNIMA Attestation The physician spent face to face time with patient:: No Advanced Practice Provider documentation review:: Supervising physician onsite and consulted in the evaluation and care of this patient. The physician did not have a face to face encounter with the patient. This chart was documented by the indicated scribe, (Dari Gonzales Scribe) and accurately reflects the services I performed and decisions made by me, Juan Manuel Evans MD, as attested by the provider's signature.
[2018-11-26 16:42] LABS: URINE SOURCE CLEAN CATCH
[2018-11-26 16:48] LABS: BASO# 0.04 X1000 (0.0-0.2); BASO% 0.4 % (0.0-0.8); EOS% 2.9 % (0.0-10.0); HEMATOCRIT 38.2 % (37.0-47.0); HEMOGLOBIN 12.2 g/dL (12.0-16.0); LYMPH# 1.03 X1000 (1.2-3.4); LYMPH% 9.9 % (20.5-51.1); MCH 26.7 PG (27-31); MCHC 31.9 g/dL (33-37); MCV 83.6 FL (81-99); MONO# 0.67 X1000 (0.11-0.59); MONO% 6.4 % (1.7-9.3); MPV 8.2 FL (7.4-10.4); NEUT# 8.41 X1000 (1.4-6.5); NEUT% 80.4 % (42.2-75.2); PLT 277 X1000 (130-400); RBC 4.57 XMIL (4.2-5.4); RDW 15.4 % (11.5-14.5); WBC 10.45 X1000 (4.8-10.8)
[2018-11-26 16:50] LABS: UR EPITHELIAL CELLS <10 /HPF (<10); URINE BACTERIA 2+ /HPF; URINE RBC <10 /HPF (<10); URINE WBC <10 /HPF (<10)
[2018-11-26 16:51] LABS: BILIRUBIN URINE NEGATIVE (NEGATIVE); BLOOD URINE NEGATIVE (NEGATIVE); COLOR STRAW; GLUCOSE URINE NEGATIVE (NEGATIVE); KETONE URINE NEGATIVE (NEGATIVE); LEUKOCYTES URINE NEGATIVE (NEGATIVE); NITRITE URINE NEGATIVE (NEGATIVE); PROTEIN URINE NEGATIVE (NEGATIVE); SP GRAVITY URINE 1.008; TURBIDITY URINE CLEAR (CLEAR); UROBILINOGEN URINE NORMAL (NORMAL)
[2018-11-26 16:55] LABS: INR 1.92; PROTIME 22.4 Seconds (11.0-16.0)
[2018-11-26 16:56] LABS: PTT 43.1 Seconds (22.3-41.8)
[2018-11-26 17:09] LABS: AGAP 11; ALB/GLOB RATIO 1.3; ALKALINE PHOSPHATASE 161 U/L (32-104); AMYLASE 60 U/L (20-200); BUN 6 mg/dL (8-22); CHLORIDE 101 mmol/L (98-107); CK PROFILE 44 U/L (24-173); COSMO 279; CREATININE 0.7 mg/dL (0.5-0.9); ESTIMATED GFR > 60; GLUCOSE 106 mg/dL (70-104); GOT 15 U/L (10-30); GPT 7 U/L (10-36); LIPASE 22 U/L (13-60); SODIUM 141 mmol/L (136-145); TCO2 29 mmol/L (25-35); TOTAL PROTEIN 7.1 g/dL (6.3-8.3)
[2018-11-26] MEDS ORDERED: NORCO-10 PO ONE (17:39)
[2018-11-26] MEDS ORDERED: ZOFRAN IV PRN (17:55)
[2018-11-26] MEDS ORDERED: LEVAQUIN 500 MG/D5W 500 MG/100 ML IVPB IV ONE (18:20)
[2018-11-26] MEDS ORDERED: SOLU-MEDROL IV ONE (18:25)
[2018-11-26] MEDS ORDERED: SOLU-MEDROL IV SCH (18:30)
--- NOTE | 2018-11-26 18:31 | HISTORY AND PHYSICAL ---
PRIMARY CARE PHYSICIAN: Rosalio Rodriguez MD. CHIEF COMPLAINT: Shortness of breath and body swelling. HISTORY OF PRESENT ILLNESS: This is a 78-year-old female with a history of atrial fibrillation on chronic anticoagulation, breast cancer, coronary artery disease, hyperlipidemia, hypertension, gastroesophageal reflux disease, and COPD. She presents to the emergency room complaining of dyspnea on exertion that has been present for about a week, increasing over the last 2 to 3 days. She also complains of generalized body edema. The patient does have a home health nurse that follows her, and home health nurse stated that the patient's oxygen levels have been dropping with exertion over the last few days. According to EMS, her O2 saturation was 90% on 3 L on their arrival. She was noted to drop her O2 saturation to 85% on 3 L while moving from the stretcher to the ER bed. PAST MEDICAL HISTORY: Hypertension, hyperlipidemia, CAD status post [place], gastroesophageal reflux disease, history of breast cancer followed by Dr. Earnestine Herman, COPD. PAST SURGICAL HISTORY: Bilateral mastectomy, cataract surgery, hysterectomy, and AAA repair. SOCIAL HISTORY: She does live with her . She has children that are close by and active in her care. She denies alcohol, tobacco, or illicit drug use. ALLERGIES: Latex, penicillin and sulfa. HOME MEDICATIONS: A list will be obtained by the nursing staff once verified and reviewed, and restart as appropriate. REVIEW OF SYSTEMS: Discussed with the patient with pertinent positives stated in HPI. She denied any syncope or dizziness; any chest pain or palpitations, a productive cough; any nausea, vomiting, diarrhea, constipation, black or bloody vomitus or stools; any hematuria, dysuria, frequency or urgency. PHYSICAL EXAMINATION: GENERAL: This is a 78-year-old female who is lying on the stretcher in the emergency room in mild distress. VITAL SIGNS: Blood pressure is 153/90 with a heart rate of 75, respirations are 20, temperature is 98.3, O2 saturations are 93% on 3 L nasal cannula. HEENT: Head is normocephalic, atraumatic. Mucous membranes are moist. NECK: Supple with trachea midline. CARDIOVASCULAR: Regular rate and rhythm. S1 and S2 appreciated. She has bilateral lower extremity edema from about midthigh down. Calves are nontender with peripheral pulses palpable x4 extremities. PULMONARY: Breath sounds are decreased throughout with expiratory wheezes. She does have bibasilar crackles. She has rhonchi that do not clear to cough. Chest rises and falls symmetric with respiration. GASTROINTESTINAL: Abdomen is large, nontender with bowel sounds in all 4 quadrants. NEUROLOGIC: She is alert and oriented x3. SKIN: Pale, warm, and dry. LABORATORY DATA: WBC is 10.4 with hemoglobin 12.2, hematocrit 38.2, and platelets of 277,000. Sodium is 141, potassium 5, BUN 6, creatinine 0.7, glucose 106. Troponin is less than 0.010, with a proBNP of 2163. Urinalysis is essentially negative. Urine culture is pending. EKG reveals sinus rhythm at a rate of 72. Chest x-ray reveals mild interstitial pulmonary edema. ASSESSMENT AND PLAN: 1. Acute hypoxic respiratory failure. We will continue with supplemental oxygen. 2. Pulmonary edema, volume overload. 3. Reported congestive heart failure with what appears to be an exacerbation. 4. History of atrial fibrillation, currently in sinus rhythm. 5. Coronary artery disease status myocardial infarction in the past. 6. Hypertension. 7. Hyperlipidemia. 8. Gastroesophageal reflux disease. 9. History of breast cancer, currently followed by Dr. Earnestine Herman. PLAN: The patient will be admitted to the hospital and placed on telemetry. continue with supplemental oxygen and DuoNebs q.4 hours p.r.n. wheezing. Lasix 40 mg IV q.12 hours. trend troponins and cardiac profile. Daily weights with strict I's and O's. CBC, CMP, and magnesium in the morning. daily PT, INR's as she is on Coumadin. Plan was discussed with Dr. Pierre. Further treatments pending hospital course. Dictated by TESSA Hendrix for Juliano Pierre MD cc: TESSA Hendrix MD [facility]
--- NOTE | 2018-11-26 18:58 | HISTORY AND PHYSICAL ---
ADDENDUM: HISTORY: I have seen and examined Ms. Terrazas today in the emergency room. Their grandson was at the bedside at the time of the encounter. Ms. 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 Herman. Currently on anastrozole 1 mg p.o. daily. She is also hypertensive, congestive heart failure, and emphysema. Presented because of shortness of breath which has been progressively getting worse associated with cough with sputum law to yellowish production and sinus issues. Upon presenting to the emergency department, the patient was evaluated, and a chest x-ray makes a mention of mild interstitial pulmonary edema. The patient has elevated proBNP, so she has been admitted for possible congestive heart failure exacerbation. PHYSICAL EXAMINATION: VITAL SIGNS: Ms. Terrazas is also found to be mildly hypertensive with a presenting blood pressure of 164/90. Her presenting O2 saturation was 88% on room air. NECK: She has a mild JVD. CHEST: Has some expiratory wheezing and end-inspiratory crackles in both lung badillo. EXTREMITIES: There was no pedal edema. ABDOMEN: Feels slightly distended. DIAGNOSTIC DATA: I have reviewed her imaging studies and also lab work. Her EKG did show normal sinus rhythm with normal axis. No ST-segment or T-wave abnormality noted. WORKING DIAGNOSES: 1. Acute hypoxemic respiratory failure with chest x-ray suggesting pulmonary edema, elevated proBNP, all concerning for congestive heart failure. Patient was given Lasix. Seems to have been diuresing well. 2. Mild bronchospasm. Patient has history of emphysema. She also has increase in sputum production with color changes, which would be concerning for possible chronic obstructive pulmonary disease exacerbation. We will sample the sputum for culture and Gram stain. We will also put her on nebulization, antibiotics, and steroid for standard therapy. 3. History of triple-negative breast cancer. We will continue with the anastrozole. 4. History of coronary artery disease status post stents in the past. The patient is stable. 5. Chronic back pain on pain medications and also follows [facility] at [facility]. PLAN: In general, we are going to admit Ms. Terrazas on the medical floor on telemetry monitoring. We will do a CT scan of the chest to rule out any other potential course including possible PE, pneumonia, or any other possible etiology for the dyspnea. We will continue with the plan that has been outlined above. Please refer to the details of the history and physical that has been dictated in the chart by the LASTEX OPERATOR. cc: Juliano Pierre MD
--- NOTE | 2018-11-26 19:21 | Diag Imaging Result Doc PS360 ---
EXAM: CT ANGIOGRM PULMONARY ARTERIES 11/26/2018 HISTORY: chest pain TECHNIQUE: This exam was performed using automated exposure control, adjustment of mA or kV according to patient size, and/or use of iterative reconstruction technique. COMMENT: The current study is compared with the previous examination of 09/18/2016. 3-D MIPS were performed. There are bilateral pleural effusions more so on the left than the right. There are no filling defects in the pulmonary arteries. There are atherosclerotic calcifications and noncalcified plaques in the aorta. There is no evidence of aneurysm or dissection. There is extensive coronary calcification. There is aorticopulmonary window adenopathy which has not changed since the previous study. There is subsegmental atelectasis in the lower lobes bilaterally. There is emphysematous change throughout the lungs. Compared to the previous examination the atelectasis is worse and the pleural fluid collections were not present previously. There is no evidence of acute bony abnormality. IMPRESSION: Pleural effusions and basilar atelectasis. COPD. No evidence of pulmonary emboli. Electronically signed by Jared Stafford 11/26/2018 7:18 PM
[2018-11-26] MEDS ORDERED: SODIUM CHLORIDE 0.9% INJ PRN (19:52)
[2018-11-26] MEDS ORDERED: PHENERGAN IV PRN (19:52)
[2018-11-26] MEDS: ZOLOFT PO SCH (22:45)
[2018-11-26] MEDS: PRAVACHOL PO SCH (22:45)
[2018-11-26] MEDS: RESTORIL PO SCH (22:45)
[2018-11-26] MEDS: NEURONTIN PO SCH (22:45)
[2018-11-26] MEDS: COUMADIN PO SCH (22:53)
[2018-11-26] MEDS: APRESOLINE PO SCH (22:53)
[2018-11-26] MEDS: ROCEPHIN 1 GM in NS 50 ML IV SCH (23:14)
[2018-11-27] MEDS: NORCO-10 PO PRN ×4 (00:09→18:42)
[2018-11-27 04:25] LABS: BASO# 0.01 X1000 (0.0-0.2); BASO% 0.2 % (0.0-0.8); EOS# 0.01 X1000 (0.0-0.7); EOS% 0.2 % (0.0-10.0); HEMATOCRIT 36.4 % (37.0-47.0); HEMOGLOBIN 11.8 g/dL (12.0-16.0); IMM GRAN# 0.02 X1000 (0.0-0.04); IMM GRAN% 0.3 % (0.0-0.5); LYMPH# 0.56 X1000 (1.2-3.4); LYMPH% 8.8 % (20.5-51.1); MCH 26.5 PG (27-31); MCHC 32.4 g/dL (33-37); MCV 81.8 FL (81-99); MONO% 1.6 % (1.7-9.3); MPV 8.2 FL (7.4-10.4); NEUT# 5.66 X1000 (1.4-6.5); NEUT% 88.9 % (42.2-75.2); PLT 266 X1000 (130-400); RBC 4.45 XMIL (4.2-5.4); RDW 14.9 % (11.5-14.5); WBC 6.36 X1000 (4.8-10.8)
[2018-11-27 04:29] LABS: INR 1.77
[2018-11-27 04:46] LABS: SODIUM 138 mmol/L (136-145)
[2018-11-27 04:47] LABS: AGAP 10; ALB/GLOB RATIO 1.3; ALBUMIN 3.7 g/dL (3.5-5.0); ALKALINE PHOSPHATASE 150 U/L (32-104); BUN 8 mg/dL (8-22); CALCIUM 9.4 mg/dL (8.8-10.2); CHLORIDE 98 mmol/L (98-107); COSMO 278; CREATININE 0.6 mg/dL (0.5-0.9); ESTIMATED GFR > 60; GLUCOSE 171 mg/dL (70-104); GOT 11 U/L (10-30); GPT 6 U/L (10-36); MAGNESIUM 2.1 mg/dL (1.5-2.7); POTASSIUM 4.5 mmol/L (3.5-5.1); TCO2 30 mmol/L (25-35); TOTAL BILIRUBIN 0.26 mg/dL (0.20-1.00); TOTAL PROTEIN 6.5 g/dL (6.3-8.3)
[2018-11-27] MEDS ORDERED: LASIX IV SCH (05:00)
[2018-11-27 05:48] LABS: URINE SOURCE CATH
[2018-11-27 07:04] LABS: BILIRUBIN URINE NEGATIVE (NEGATIVE); BLOOD URINE SMALL (NEGATIVE); COLOR YELLOW; GLUCOSE URINE NEGATIVE (NEGATIVE); KETONE URINE NEGATIVE (NEGATIVE); LEUKOCYTES URINE NEGATIVE (NEGATIVE); NITRITE URINE NEGATIVE (NEGATIVE); PH URINE 7.5; PROTEIN URINE TRACE mg/dL (NEGATIVE); SP GRAVITY URINE 1.029; TURBIDITY URINE CLEAR (CLEAR); UR EPITHELIAL CELLS <10 /HPF (<10); URINE BACTERIA NEGATIVE /HPF; URINE RBC 20-40 /HPF (<10); URINE WBC <10 /HPF (<10); UROBILINOGEN URINE NORMAL (NORMAL)
[2018-11-27] MEDS: DUONEB (A & A) INH PRN ×4 (09:06→19:38)
[2018-11-27] MEDS: LOPRESSOR PO SCH (09:33)
[2018-11-27] MEDS: CARDIZEM CD PO SCH (09:33)
[2018-11-27] MEDS: NEURONTIN PO SCH ×2 (09:33→21:46)
[2018-11-27] MEDS: ARIMIDEX PO SCH (09:34)
[2018-11-27] MEDS: ASPIRIN PO SCH (09:34)
[2018-11-27] MEDS: APRESOLINE PO SCH ×2 (09:34→21:49)
[2018-11-27] MEDS: SOLU-MEDROL IV SCH ×2 (09:34→21:48)
--- NOTE | 2018-11-27 13:21 | PROGRESS NOTE ---
DATE: 11/27/2018 SUBJECTIVE: This morning, Ms. Terrazas refers to be doing a little better. According to her, the shortness of breath has improved. OBJECTIVE: Vital Signs: Blood pressure is 129/66, pulse is 60, respiration is 18, temperature 97.6 degrees. The patient was saturating 95% on 3 L. General: Ms. Terrazas is a 78-year-old female. She is in bed. No distress. Mucosa is pink and moist. Anicteric. Acyanotic. Neck: Supple. Chest: Good air entry bilateral. Some mild crepitations in the posterior lung badillo. There is also mildly prolonged expiratory phase of respiration. Cardiovascular: Regular rate and rhythm. No murmurs, no rubs, no gallops. Abdomen: Soft, distended, but nontender. Bowel sounds present. Extremities: No pedal edema. STORE ADMINISTRATOR: Patient is awake, alert, and oriented. LABORATORY DATA: CBC is reviewed. The patient has mild normocytic anemia. Chemistry is reviewed and is completely normal. ProBNP is to 2876. MEDICATIONS: The patient's current medications have all been reviewed. IMAGING STUDIES: No imaging studies for today. INTAKE AND OUTPUT: Urine output was 1800. The patient has a negative balance of 1600. ASSESSMENT: 1. Acute hypoxemic respiratory failure improving. 2. Congestive heart failure with pulmonary edema. The patient is on diuretic therapy. Pending Echo report 3. Bronchospasm on presentation, most likely combination of pulmonary edema and chronic obstructive pulmonary disease. 4. History of triple negative breast cancer. 5. History of coronary artery disease status post stent in the past. Patient is currently asymptomatic. 6. Chronic pain on medications and [facility]. Ms Terrazas is doing a lot better today. If echo unremarkable, then she can be discharged tomorrow. cc: Juliano Pierre MD MTDD
[2018-11-27] MEDS ORDERED: LEVAQUIN 500 MG/D5W 500 MG/100 ML IVPB IV SCH (19:00)
--- NOTE | 2018-11-27 19:34 | ECHO REPORT ---
ORDER DATE: 11/27/2018 INTERPRETING PHYSICIAN: Dr. Pratt CLINICAL INDICATIONS: CHF. M-MODE MEASUREMENTS: Left ventricle end diastole: 5.4 cm. Left ventricle end systole: 3.5 cm. Posterior wall: 0.9 cm. Interventricular septum: 0.9 cm. Left atrium: 3.7 cm. Aortic diameter: 2.8 cm. SUMMARY OF 2-DIMENSIONAL IMAGIN. The left ventricular systolic function is normal. Ejection fraction is 71%. There is no wall motion abnormality noted. The right ventricle appears to be normal. The atria also appear to be normal. 2. The inferior vena cava is not dilated. 3. The tricuspid valve shows mild degree of regurgitation. 4. Pulmonary pressure is estimated at 37 mmHg. 5. Mitral valve looks normal. Color flow mapping indicates trace of regurgitation. 6. Pulsed wave Doppler of mitral inflow is normal. 7. Tissue Doppler of septal and lateral mitral annulus averages 8 cm. 8. Pulmonary venous flow is normal. 9. There is no diastolic dysfunction. 10.Aortic valve looks normal. Color flow mapping unremarkable. There is a trace of aortic regurgitation. 11.There is no pericardial effusion, mass and no thrombus. CONCLUSIONS: In summary, this echocardiographic study is grossly unremarkable. The pulmonary pressure is elevated at 37 mmHg. There is no diastolic dysfunction. No significant valvular abnormality. The left ventricular ejection fraction is 71%. Clinical correlation is recommended. cc: MD Juliano Arevalo MD
[2018-11-27] MEDS: COUMADIN PO SCH (21:46)
[2018-11-27] MEDS: ZOLOFT PO SCH (21:46)
[2018-11-27] MEDS: PRAVACHOL PO SCH (21:46)
[2018-11-27] MEDS: ROCEPHIN 1 GM in NS 50 ML IV SCH (21:54)
[2018-11-27] MEDS: RESTORIL PO SCH (21:57)
[2018-11-28 06:07] LABS: INR 1.61; PROTIME 19.4 Seconds (11.0-16.0)
[2018-11-28 06:20] LABS: BASO# 0.01 X1000 (0.0-0.2); BASO% 0.1 % (0.0-0.8); HEMATOCRIT 35.5 % (37.0-47.0); HEMOGLOBIN 11.6 g/dL (12.0-16.0); IMM GRAN# 0.02 X1000 (0.0-0.04); IMM GRAN% 0.2 % (0.0-0.5); LYMPH# 0.56 X1000 (1.2-3.4); LYMPH% 5.4 % (20.5-51.1); MCH 26.9 PG (27-31); MCHC 32.7 g/dL (33-37); MCV 82.4 FL (81-99); MONO# 0.38 X1000 (0.11-0.59); MONO% 3.7 % (1.7-9.3); MPV 8.5 FL (7.4-10.4); NEUT# 9.32 X1000 (1.4-6.5); NEUT% 90.6 % (42.2-75.2); PLT 316 X1000 (130-400); RBC 4.31 XMIL (4.2-5.4); RDW 15.3 % (11.5-14.5); WBC 10.29 X1000 (4.8-10.8)
[2018-11-28] MEDS: NORCO-10 PO PRN (06:29)
--- NOTE | 2018-11-28 06:37 | Diag Imaging Result Doc PS360 ---
CHEST-PORTABLE - 11/28/2018 INDICATION: dyspnea COMPARISON: 11/26/2018 FINDINGS: There is some faint interstitial infiltrate diffusely and bilaterally compatible with mild pulmonary edema. Heart size is top normal. No significant pleural effusion. No dense consolidations. IMPRESSION: No change from prior. Electronically signed by Dave Gamboa 11/28/2018 6:34 AM
[2018-11-28 06:44] LABS: LYMPHS 8 % (21-51); MONO 2 % (1-9); SEGS 90 % (42-75)
[2018-11-28 07:19] LABS: ALBUMIN 3.8 g/dL (3.5-5.0); CALCIUM 9.3 mg/dL (8.8-10.2); CREATININE 1.1 mg/dL (0.5-0.9); PHOSPHORUS 3.5 mg/dL (2.7-4.5); POTASSIUM 4.6 mmol/L (3.5-5.1)
[2018-11-28] MEDS: DUONEB (A & A) INH PRN ×2 (08:14→11:53)
[2018-11-28] MEDS ORDERED: LASIX IV SCH (09:00)
[2018-11-28] MEDS: SOLU-MEDROL IV SCH (09:55)
[2018-11-28] MEDS: CARDIZEM CD PO SCH (09:56)
[2018-11-28] MEDS: NEURONTIN PO SCH (09:56)
[2018-11-28] MEDS: ASPIRIN PO SCH (09:56)
[2018-11-28] MEDS: APRESOLINE PO SCH (09:57)
[2018-11-28] MEDS: LOPRESSOR PO SCH (09:57)
[2018-11-28] MEDS: ARIMIDEX PO SCH (09:57)
[2018-11-28] MEDS ORDERED: FIORICET PO ONE (12:14)
[2018-11-28 12:16] VITALS: BP 131/66
--- NOTE | 2018-11-28 15:25 | DISCHARGE SUMMARY ---
ADMISSION DATE: 11/26/2018 DISCHARGE DATE: 11/28/2018 DISCHARGE DIAGNOSES: 1. Acute hypoxic respiratory failure due to pulmonary edema, although there is not clear congestive heart failure based on her echocardiogram. 2. Bronchospasm with COPD. 3. 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 4. Coronary artery disease. Briefly, this is a 78-year-old female who came in with shortness of breath. She is on oxygen on 3 L that is at her baseline, but she was 85%. She dropped, acutely hypoxic. She was placed on diuretics and clinically improved. Pulmonary angiogram showed effusions and atelectasis, COPD, no PE. Echocardiogram was almost completely normal, EF of 71%. No valvular abnormalities. No diastolic dysfunction so I am not clear this was CHF. It may have been possibly pulmonary edema related to atrial fibrillation, although she has not been tachycardic or had any issues there. Her chest x-ray on the showed some faint interstitial infiltrates .she was breathing comfortably. She was motivated to go home. Saturations were 93 to 94 percent on room on room air. LABORATORY DATA: INR is 1.6, hemoglobin and hematocrit 11 and 35. Sodium 135. Her proBNP was down to 971. She was discharged in stable condition on current medications pravastatin 80, sertraline 100, [employer] p.r.n., hydralazine 25 b.i.d., Arimidex 1 daily, aspirin 81 daily, Cardizem CD 180 daily, Coumadin 2 mg Tuesday, Tuesday, Tuesday and 4 mg Tuesday, , Tuesday, gabapentin 300 b.i.d., Lasix 40 b.i.d., metoprolol 100 daily, cefpodoxime 200 b.i.d. for 7 days, prednisone 20 daily for 10 days, albuterol inhaler q. 6. DISCHARGE CONDITION: Stable. Follow up with her PCP, Rosalio Rodriguez, in 1 to 2 weeks and [facility] 2 to 4 weeks to re-evaluate for heart failure issues 35 minute discharge. cc: Estrada Chiu MD
[2018-11-28] MEDS ORDERED: COUMADIN PO SCH (21:00)
== END 2018-11-28 15:06 | disposition home health service (06) | DRG 291 ==
LOC: SUPCPDRO → ED 15:39 → SUATTDRO 18:57 → 4N 18:57
PROVIDERS: ATTEND Internal Medicine